=== PATIENT | female | born 1965 | race American Indian/Alaskan Native ===

== ENCOUNTER 2016-09-15 18:40 | Emergency (ER) | payer OTHER ==
[2016-09-15] MEDS ORDERED: MOTRIN PO ONE (23:01)
[2016-09-15] MEDS ORDERED: CLEOCIN IM ONE (23:01)
--- NOTE | 2016-09-15 23:01 | Emergency Department Report ---
- General Chief complaint: Skin/Abscess/Foreign Body Stated complaint: SPIDER BITE Time Seen by Provider: 09/15/16 22:19 Source: patient, family Mode of arrival: Ambulatory Limitations: No Limitations - History of Present Illness Initial comments: Patient here reports that she possible have a spider bite on her left leg area. She said the area is red and swollen. Denies any fever or chills. Denies any nausea or vomiting. She said that this happened yesterday. Pain is 8 out of 10. She reports that her tetanus shot is up-to-date. Patient reports that she put the Neosporin on site. MD complaint: insect bite/sting Onset/Timin -: days(s) Tetanus Up to Date: yes Location: LLE Severity: severe Severity scale (0 -10): 8 (left leg) Quality: other (throbbing) Consistency: constant Improves with: none Worsens with: palpation, movement Context: other (unknown) Associated symptoms: athralgias Treatments Prior to Arrival: OTC topical medication - Related Data Previous Rx's Medication Instructions Recorded Last Taken Type Ibuprofen [Motrin] 600 mg PO Q8H PRN #15 tablet 09/16/16 Unknown Rx Sulfamethoxazole/Trimethoprim 1 each PO BID #20 tablet 09/16/16 Unknown Rx [Bactrim DS TAB] Allergies Allergy/AdvReac Type Severity Reaction Status Date / Time No Known Allergies Allergy Unverified 09/15/16 18:59 Abscess Boil HPI - HPI Chief Complaint: Skin/Abscess/Foreign Body Stated Complaint: SPIDER BITE Time Seen by Provider: 09/15/16 22:19 Home Medications: Previous Rx's Medication Instructions Recorded Last Taken Type Ibuprofen [Motrin] 600 mg PO Q8H PRN #15 tablet 09/16/16 Unknown Rx Sulfamethoxazole/Trimethoprim 1 each PO BID #20 tablet 09/16/16 Unknown Rx [Bactrim DS TAB] Allergies/Adverse Reactions: Allergies Allergy/AdvReac Type Severity Reaction Status Date / Time No Known Allergies Allergy Unverified 09/15/16 18:59 ED Review of Systems ROS: Stated complaint: SPIDER BITE Other details as noted in HPI Comment: All other systems reviewed and negative Constitutional: denies: chills, fever ENT: denies: throat pain Respiratory: no symptoms reported Cardiovascular: denies: chest pain, palpitations, edema, syncope Gastrointestinal: denies: nausea, vomiting Musculoskeletal: arthralgia. denies: back pain Skin: other (redness, swelling left leg) Neurological: denies: headache, numbness, paresthesias, abnormal gait, vertigo ED Past Medical Hx - Past Medical History Previous Medical History?: Yes Hx Hypertension: Yes - Surgical History Past Surgical History?: No - Family History Family history: no significant - Social History Smoking Status: Never Smoker Substance Use Type: None - Medications Home Medications: Home Medications Medication Instructions Recorded Confirmed Last Taken Type Ibuprofen [Motrin] 600 mg PO Q8H PRN #15 tablet 09/16/16 Unknown Rx Sulfamethoxazole/Trimethoprim 1 each PO BID #20 tablet 09/16/16 Unknown Rx [Bactrim DS TAB] ED Physical Exam - General Limitations: No Limitations General appearance: alert, in no apparent distress - Head Head exam: Present: atraumatic, normocephalic, normal inspection - Eye Eye exam: Present: normal appearance, PERRL, EOMI. Absent: periorbital swelling , periorbital tenderness Pupils: Present: normal accommodation - ENT ENT exam: Present: normal exam, normal orophraynx, mucous membranes moist, TM's normal bilaterally, normal external ear exam - Neck Neck exam: Present: normal inspection, full ROM. Absent: tenderness, meningismus, lymphadenopathy - Respiratory Respiratory exam: Present: normal lung sounds bilaterally. Absent: respiratory distress, wheezes, rales, rhonchi, stridor, chest wall tenderness, accessory muscle use - Cardiovascular Cardiovascular Exam: Present: regular rate, normal rhythm, normal heart sounds - GI/Abdominal GI/Abdominal exam: Present: soft, normal bowel sounds. Absent: distended, tenderness, guarding, rebound, rigid - Extremities Exam Extremities exam: Present: normal inspection, full ROM, tenderness (CELLULITIC AREA LEFT LEG), normal capillary refill. Absent: pedal edema, joint swelling, calf tenderness - Neurological Exam Neurological exam: Present: alert, oriented X3, normal gait, reflexes normal. Absent: motor sensory deficit - Psychiatric Psychiatric exam: Present: normal affect, normal mood - Skin Skin exam: Present: erythema - Expanded Skin Exam Expanded Distribution of rash: LLE (left anterior proximal leg) Description of rash: Present: tenderness, erythematous (3 x 3 cm), swelling, other (noted point of entry to Center of erythema.). Absent: discharge, fluctuant, indurated ED Course Vital Signs 09/15/16 09/15/16 18:59 21:49 Temperature 98.3 F 98.2 F Pulse Rate 88 80 Respiratory 16 20 Rate Blood Pressure 160/111 Blood Pressure 157/102 [Right] O2 Sat by Pulse 99 100 Oximetry - Reevaluation(s) Reevaluation #1: 09/16/16 00:15 Patient given clindamycin 600 mg IM and emergency room without any adverse reaction. He is also given Motrin 800 mg for pain which relieved her pain. ED Medical Decision Making - Medical Decision Making ED course: She given clindamycin 600 mg IM and emergency room along with Motrin 800 mg by mouth. I discussed the patient that she has cellulitic area to her left leg which appears to be from insect bite. I discussed with patient diagnosis and treatment plan. Voice understanding. Patient says she has appointment with new primary care doctor in 2 days and she will follow-up with for cellulitis of left upper leg. Patient discharged home with prescription for Bactrim DS and Motrin. Critical care attestation.: If time is entered above; I have spent that time in minutes in the direct care of this critically ill patient, excluding procedure time. ED Disposition Clinical Impression: Cellulitis of leg, left Hypertension Qualifiers: Hypertension type: essential hypertension Qualified Code(s): I10 - Essential ( primary) hypertension Disposition: DISCHARGED TO HOME OR SELFCARE Is pt being admited?: No Does the pt Need Aspirin: No Condition: Stable Instructions: Cellulitis (ED), Hypertension (ED) Additional Instructions: Please keep affected area clean and dry remember to follow-up with her primary care physician in 2 days regarding cellulitis of left leg Take antibiotic as prescribed If you notice increased redness, develop fever and or drainage from site please return to emergency room Please keep a log of your blood pressure and take to primary care doctor visit for evaluation and treatment. Prescriptions: Ibuprofen [Motrin] 600 mg PO Q8H PRN #15 tablet PRN Reason: Pain Sulfamethoxazole/Trimethoprim [Bactrim DS TAB] 1 each PO BID #20 tablet Referrals: PRIMARY CARE [Primary Care Provider] - 09/17/16 Forms: Work/School Release Form(ED)
[2016-09-15 23:12] VITALS: BP 157/102
== END 2016-09-16 00:49 | disposition home or self-care (01) ==
LOC: ED 18:40
DX: L03.116 Cellulitis of left lower limb (principal); I10 Essential (primary) hypertension; W57.XXXA Bitten or stung by nonvenomous insect and other nonvenomous arthropods, initial encounter; Y93.89 Activity, other specified; Y99.9 Unspecified external cause status; Y92.89 Other specified places as the place of occurrence of the external cause
CPT/HCPCS: 96372

== ENCOUNTER 2016-10-31 13:23 | Outpatient (CLI) | payer OTHER ==
--- NOTE | 2016-10-31 15:44 | Mammography Report ---
BILATERAL MAMMOGRAM with CAD: HISTORY: Cancer screening. FINDINGS: There are scattered fibroglandular densities (approximately 25%-50% glandular). No mass, distortion, suspicious calcification, or skin change is seen. IMPRESSION: Negative mammogram. There is no mammographic evidence of malignancy. RECOMMENDATION: Follow-up per ACS guidelines. BI-RADS CATEGORY: 1 = Negative ACR BI-RADS MAMMOGRAPHIC CODES: 0 = Needs additional imaging evaluation; 1 = Negative; 2 = Benign; 3 = Probably benign; 4 = Suspicious; 5 = Malignant; 6 = Known biopsy-proven malignancy COMMENT: 1. Dense breast tissue, i.e., adenosis, fibrocystic changes, etc., may obscure an underlying neoplasm. 2. Approximately 10% of cancers are not detected with mammography. 3. A negative mammography report should not delay biopsy if a clinically suspicious mass is present. COMMENT: Patient follow-up letters are generated in [employer].
== END 2016-10-31 13:24 | disposition home or self-care (01) ==
LOC: SPVWC 13:23
PROVIDERS: ATTEND Family Medicine
DX: Z12.31 Encounter for screening mammogram for malignant neoplasm of breast (principal)
CPT/HCPCS: 77067; G0202

== ENCOUNTER 2017-07-11 08:32 | Inpatient (IN) | payer OTHER ==
[2017-07-11] MEDS ORDERED: HEPARIN IV ONE (08:38)
[2017-07-11] MEDS ORDERED: TRIDIL DRIP 50MG/250ML 50 MG/250 ML BOTTLE IV ONE (08:39)
[2017-07-11] MEDS ORDERED: HEPARIN/NS 5000 UNIT/500ML(CATH LAB) 1,000 ML IR ONE (08:43)
[2017-07-11] MEDS ORDERED: NITROGLYCERIN SYRINGE 3 ML ONE (08:44)
[2017-07-11] MEDS ORDERED: HEPARIN 10,000 UNITS/10 ML ONE ×2 (08:44→11:20)
[2017-07-11] MEDS ORDERED: XYLOCAINE 2% INFILTRATI ONE (08:44)
[2017-07-11] MEDS ORDERED: CALAN ONE (08:44)
--- NOTE | 2017-07-11 08:44 | Emergency Department Report ---
ED Chest Pain HPI - General Chief Complaint: Chest Pain Stated Complaint: CT Time Seen by Provider: 07/11/17 08:33 Source: patient, EMS Mode of arrival: Stretcher Limitations: No Limitations - History of Present Illness Initial Comments: 51-year-old female with a past medical history of recently diagnosed hypertension presenting the hospital complaints of chest pain. Patient states she had chest pressure last night that went away. Chest pressure woke her up this a.m. and patient called EMS at approximately 8 AM. Chest pressure was described as "an elephant sitting on her chest." Pads associated nausea, vomiting, and diaphoresis. Patient received nitroglycerin 1 and 324 mg aspirin prior to arrival and states she is now pain-free. Patient states she was discharged from [facility] yesterday when she was admitted for newly diagnosed hypertension for 4 days. She states she had a negative stress test during this admission. Patient denies tobacco use or previous cardiac history. EKG received by EMS reveals anteroseptal ST elevation CT with reciprocal depression. This was discussed with production supervisor off shift STEMI administrative law judge Dr. Mitchell and [facility] was activated prior to patient arrival Severity scale (0 -10): 5 - Related Data Previous Rx's Medication Instructions Recorded Last Taken Type Ibuprofen [Motrin] 600 mg PO Q8H PRN #15 tablet 09/16/16 Unknown Rx Sulfamethoxazole/Trimethoprim 1 each PO BID #20 tablet 09/16/16 Unknown Rx [Bactrim DS TAB] Allergies Allergy/AdvReac Type Severity Reaction Status Date / Time No Known Allergies Allergy Unverified 09/15/16 18:59 Heart Score - HEART Score History: Highly suspicious EKG: Significant ST-depression Age: 45-65 Risk factors: 1-2 risk factors Troponin: 1-3x normal limit HEART Score: 7 ED Review of Systems ROS: Stated complaint: CT Other details as noted in HPI Comment: All other systems reviewed and negative Other: Constitutional: No fevers chills or weight loss Eyes: No eye pain visual changes or discharge ENT: No ear pain or throat pain Neck: Denies pain Respiratory: Denies cough wheezing Cardiovascular: + chest GI: Denies abdominal pain : Denies dysuria Musculoskeletal: Denies back pain Skin: Denies rash, lesions, erythema Neurologic: Denies headache, numbness, weakness Psychiatric: Denies suicidal ideation, hallucinations ED Past Medical Hx - Past Medical History Previous Medical History?: Yes Hx Hypertension: Yes - Social History Smoking Status: Never Smoker Substance Use Type: None - Medications Home Medications: Home Medications Medication Instructions Recorded Confirmed Last Taken Type Ibuprofen [Motrin] 600 mg PO Q8H PRN #15 tablet 09/16/16 Unknown Rx Sulfamethoxazole/Trimethoprim 1 each PO BID #20 tablet 09/16/16 Unknown Rx [Bactrim DS TAB] ED Physical Exam - General Limitations: Other - Other Other exam information: General: No limitations, patient is alert in no acute distress Head exam: Atraumatic, normocephalic Eyes exam: Normal appearance ENT: Moist mucous membrane, normal oropharynx Neck exam: Normal inspection, full range of motion Respiratory exam: Clear to auscultation bilateral, no wheezes, rales, crackles Cardiovascular: Normal rate and rhythm Abdomen: Soft, nondistended, and nontender, with normal bowel sounds, no rebound, or guarding Extremity: Full range of motion normal inspection no deformity, no calf tenderness/edema Back: Normal Inspection, full range of motion, no tenderness Neurologic: Alert, oriented x3, cranial nerves intact, no motor or sensory deficit Psychiatric: normal affect, normal mood Skin: Warm, dry, intact ED Course Vital Signs 07/11/17 07/11/17 08:34 08:37 Respiratory 16 Rate Blood Pressure 143/101 O2 Sat by Pulse 100 Oximetry - Consultations Consultation #1: 07/11/17 08:[address] Mitchell got the on-call administrative law judge for field laboratory operator. He has agreed to take patient to the Rec[facility] based on ST elevation on EKG. Rec[facility] activated prior to patient arrival PETRONA score - Petrona Score Age > 65: (0) No Aspirin use within the Past 7 Days: (0) No 3 or more CAD Risk Factors: (0) No 2 or more Angina events in past 24 hrs: (1) Yes Known CAD with more than 50% Stenosis: (0) No Elevated Cardiac Markers: (1) Yes ST Deviation Greater than 0.5mm: (1) Yes PETRONA Score: 3 ED Medical Decision Making - Lab Data Result diagrams: 07/11/17 08:30 07/11/17 08:30 Lab Results 07/11/17 07/11/17 07/11/17 Range/Units 08:30 08:30 08:30 WBC 5.2 (4.5-11.0) K/mm3 RBC 5.09 H (3.65-5.03) M/mm3 Hgb 14.7 H (10.1-14.3) gm/dl Hct 43.9 H (30.3-42.9) % MCV 86 (79-97) fl MCH 29 (28-32) pg MCHC 33 (30-34) % RDW 14.8 (13.2-15.2) % Plt Count 273 (140-440) K/mm3 Lymph % (Auto) 36.5 H (13.4-35.0) % [place] % (Auto) 7.5 H (0.0-7.3) % Eos % (Auto) 1.1 (0.0-4.3) % Baso % (Auto) 0.8 (0.0-1.8) % Lymph # 1.9 (1.2-5.4) K/mm3 [place] # 0.4 (0.0-0.8) K/mm3 Eos # 0.1 (0.0-0.4) K/mm3 Baso # 0.0 (0.0-0.1) K/mm3 Seg Neutrophils % 54.1 (40.0-70.0) % Seg Neutrophils # 2.8 (1.8-7.7) K/mm3 PT 13.5 (12.2-14.9) Sec. INR 0.98 (0.87-1.13) APTT 24.1 L (24.2-36.6) Sec. Activated Clotting Time (74-137) Sodium 137 (137-145) mmol/L Potassium 4.2 (3.6-5.0) mmol/L Chloride 98.3 (98-107) mmol/L Carbon Dioxide 21 L (22-30) mmol/L Anion Gap 22 mmol/L BUN 8 (7-17) mg/dL Creatinine 0.8 (0.7-1.2) mg/dL Estimated GFR > 60 ml/min BUN/Creatinine Ratio 10 % Glucose 188 H (65-100) mg/dL Calcium 9.4 (8.4-10.2) mg/dL Total Creatine Kinase 222 H (30-135) units/L CK-MB (CK-2) 5.9 H (0.0-4.0) ng/mL CK-MB (CK-2) Rel Index 2.6 (0-4) Troponin T 0.069 H (0.00-0.029) ng/mL Triglycerides 63 (2-149) mg/dL Cholesterol 244 H (50-199) mg/dL LDL Cholesterol Direct 153 H (50-130) mg/dL HDL Cholesterol 79 H (40-59) mg/dL Cholesterol/HDL Ratio 3.08 % 07/11/17 07/11/17 07/11/17 Range/Units 09:33 09:47 11:22 WBC (4.5-11.0) K/mm3 RBC (3.65-5.03) M/mm3 Hgb (10.1-14.3) gm/dl Hct (30.3-42.9) % MCV (79-97) fl MCH (28-32) pg MCHC (30-34) % RDW (13.2-15.2) % Plt Count (140-440) K/mm3 Lymph % (Auto) (13.4-35.0) % [place] % (Auto) (0.0-7.3) % Eos % (Auto) (0.0-4.3) % Baso % (Auto) (0.0-1.8) % Lymph # (1.2-5.4) K/mm3 [place] # (0.0-0.8) K/mm3 Eos # (0.0-0.4) K/mm3 Baso # (0.0-0.1) K/mm3 Seg Neutrophils % (40.0-70.0) % Seg Neutrophils # (1.8-7.7) K/mm3 PT (12.2-14.9) Sec. INR (0.87-1.13) APTT (24.2-36.6) Sec. Activated Clotting Time 213 H 252 H (74-137) Sodium (137-145) mmol/L Potassium (3.6-5.0) mmol/L Chloride (98-107) mmol/L Carbon Dioxide (22-30) mmol/L Anion Gap mmol/L BUN (7-17) mg/dL Creatinine (0.7-1.2) mg/dL Estimated GFR ml/min BUN/Creatinine Ratio % Glucose (65-100) mg/dL Calcium (8.4-10.2) mg/dL Total Creatine Kinase 219 H (30-135) units/L CK-MB (CK-2) 8.0 H (0.0-4.0) ng/mL CK-MB (CK-2) Rel Index 3.6 (0-4) Troponin T 0.167 H* D (0.00-0.029) ng/mL Triglycerides (2-149) mg/dL Cholesterol (50-199) mg/dL LDL Cholesterol Direct (50-130) mg/dL HDL Cholesterol (40-59) mg/dL Cholesterol/HDL Ratio % - EKG Data -: EKG Interpreted by Me EKG shows normal: sinus rhythm, ST-T waves (anterior septal stemi) - EKG Data When compared to previous EKG there are: previous EKG unavailable - Medical Decision Making EKG reveals ST elevation. Patient pain-free in the ED after receiving nitroglycerin and aspirin in route Nitroglycerin drip, heparin, heparin bolus ordered in the ED Patient transferred emergently to the [facility] Hospitalist service informed - Differential Diagnosis dissection, STEMI, atypical chest pain, coronary vasospasm Critical Care Time: Yes Critical care time in (mins) excluding proc time.: 35 Critical care attestation.: If time is entered above; I have spent that time in minutes in the direct care of this critically ill patient, excluding procedure time. ED Disposition Clinical Impression: STEMI (ST elevation myocardial infarction) Disposition: -09 OP ADMIT IP TO THIS HOSP Is pt being admited?: Yes Condition: Stable Time of Disposition: 08:40 (to go to field laboratory operator, gretaitaist/ashley informed)
[2017-07-11] MEDS ORDERED: VERSED ONE (08:45)
[2017-07-11] MEDS ORDERED: SUBLIMAZE ONE (08:45)
[2017-07-11] MEDS ORDERED: NACL 0.9% 1000 ML 1,000 ML ONE (08:45)
[2017-07-11 08:47] LABS: Hematocrit 43.9 % (30.3-42.9); Hemoglobin 14.7 gm/dl (10.1-14.3); Mean Corpuscular HGB Conc 33 % (30-34); Mean Corpuscular Hemoglobin 29 pg (28-32); Mean Corpuscular Volume 86 fl (79-97); Platelet Count 273 K/mm3 (140-440); Red Blood Count 5.09 M/mm3 (3.65-5.03); Red Cell Distribution Width 14.8 % (13.2-15.2); White Blood Count 5.2 K/mm3 (4.5-11.0)
[2017-07-11 08:49] LABS: Basophils % (Auto) 0.8 % (0.0-1.8); Eosinophils % (Auto) 1.1 % (0.0-4.3)
--- NOTE | 2017-07-11 08:50 | Progress Note ---
Assessment and Plan Assessment: NSTEMI type I CAD Abnormal EKG HTN Obesity Plan: pt s/p [facility] with IVUS which revealed nonobstructive proximal LAD disease, normal LV function. Dictated cath report to follow. Tx pt to ICU. Cont heparin and nitro gtts overnight. Initiate ASA 325, plavix, lopressor, lisinopril, lipitor. Obtain echo. Repeat EKG in AM. Trend Emilia. Assessment and plan reviewed with pt at bedside. The patient has been seen in conjunction with Dr. Mitchell who agrees with the assessment and plan of care. Subjective Date of service: 07/11/17 Principal diagnosis: chest pain Interval history: Pt is a 51 YO female with a past medical history significant for HTN. She is previously unknown to our practice. She presented with c/o chest pain which began at 1AM this morning. The pain awoke her from sleeping. She describes the chest pain as a nonexertional, constant, midsternal pressure which radiates down her right arm. The pain was associated with nausea, vomiting and diaphoresis. She called 9-1-1 at the onset of her chest pain at 1AM and by the time EMS arrived, she states that the pain had resolved. She reports that she did have her VS checked and an EKG done per EMS around 1AM and that there were no significant findings per EMS. EMS then left and pt went back to sleep. Around 7:45AM this morning, the pt was sleeping and was once again awakened by chest pain. The pain was the same pain she experienced at 1AM and was again associated with n/v and diaphoresis. Pt called EMS again at that time and was transported to [facility] ED for further eval/management. Patient received nitroglycerin 1 and 324 mg aspirin en route per EMS. On arrival to ED, pt reports chest pain has currently resolved. Admission EKG demonstrates ST elevations in anteroseptal leads and ST depressions in inferior leads. Code STEMI activated. Pt taken to screedman/laborer for emergent coronary angiography. Pt denies any prior history of cardiac issues, including AMI, CAD or heart failure. Of note, pt was recently discharged from [facility] yesterday following evaluation of chest pain. She underwent lexiscan MPI stress test on 07/08/2017 which was negative for significant ischemia or infarction, normal LV function. She underwent echo on 07/08/2017 which showed EF >55%, normal LV diastolic function , mild MR< mild TR, trace TX. EKG performed 07/08/2016 showed NSR with no acute ischemic changes. Objective Last Vital Signs Temp Pulse Resp 16 07/11/17 08:37 BP 143/101 07/11/17 08:34 Pulse Ox 100 07/11/17 08:37 - Physical Examination General: Other (anxious) HEENT: Positive: PERRL, Normocephaly, Mucus Membranes Moist Neck: Positive: neck supple, trachea midline Cardiac: Positive: Reg Rate and Rhythm, S1/S2 Lungs: Positive: clear to auscultation Neuro: Positive: Grossly Intact, Cranial Nerve 2-12 Intact Abdomen: Positive: Unremarkable, Soft, Active Bowel Sounds. Negative: Tender Skin: Positive: Clear. Negative: Rash, Wound Musculoskeletal: No Fluid Collection, No Pain, Normal Range of Motion Extremities: Absent: edema - Labs and Meds CBC 07/11/17 Range/Units 08:30 WBC 5.2 (4.5-11.0) K/mm3 RBC 5.09 H (3.65-5.03) M/mm3 Hgb 14.7 H (10.1-14.3) gm/dl Hct 43.9 H (30.3-42.9) % Plt Count 273 (140-440) K/mm3 Lymph # Soil Scientist Evans # Soil Scientist Eos # Soil Scientist Baso # Soil Scientist - Imaging and Cardiology EKG: report reviewed, image reviewed Echo: pending Cardiac cath: pending - Telemetry EKG Rhythm: Sinus Rhythm - EKG Sinus rhythms and dysrhythmias: sinus rhythm Repolarization changes or abnormalities: ST or T wave suggestive of ischemia Myocardial infarction: septal AL (acute or recen, anterior AL (acute or rec
[2017-07-11 08:51] LABS: INR 0.98 (0.87-1.13)
[2017-07-11 08:52] LABS: Partial Thromboplastin Time 24.1 Sec. (24.2-36.6)
[2017-07-11] MEDS ORDERED: ALUM-MAG HYDROX-SIMETH 200-200-20MG/5ML PO PRN (08:56)
[2017-07-11 08:59] LABS: Creatine Kinase MB 5.9 ng/mL (0.0-4.0)
[2017-07-11 09:00] LABS: Anion Gap 22 mmol/L; BUN/Creatinine Ratio 10; Blood Urea Nitrogen 8 mg/dL (7-17); Calcium 9.4 mg/dL (8.4-10.2); Carbon Dioxide 21 mmol/L (22-30); Chloride 98.3 mmol/L (98-107); Creatine Kinase 222 units/L (30-135); Glucose 188 mg/dL (65-100); Potassium 4.2 mmol/L (3.6-5.0); Sodium 137 mmol/L (137-145)
[2017-07-11] MEDS ORDERED: HEPARIN 10,000 UNITS/10 ML IV NR (09:00)
[2017-07-11] MEDS ORDERED: NACL 0.9% 1000 ML 1,000 ML IV SCH (09:00)
--- NOTE | 2017-07-11 09:10 | History and Physical Report ---
<CHRISTAL VERONICA - Last Filed: 07/11/17 13:13> History of Present Illness Date of examination: 07/11/17 Date of admission: 07/11/2017 Chief complaint: Chest pain History of present illness: Patient is a 51-year-old male with a past medical history of hypertension who present to the Emergency Department for chest pain. She states that the pain began this morning around 01:00AM.The pain awoke her from sleeping; constant midsternal chest pain. Patient described the pain as, sharp, pressure and squeezing in her chest; hat radiates to the right arm. The sharp pain lasted around 1 minute. She called 911; by the time EMS arrived her pain was resolved. She went back to sleep. Also around 7:45 AM she had the same chest pain;the patient was sleeping and awakened by chest pain. Patient called EMS again at that There is no aggravating or reliving factors. The painful episodes did not increase in intensity or severity during this time. Patient rated his pain level 9/10. He denies nausea, vomiting during these episodes of pain. She experienced shortness of breath, nausea, vomiting diaphoresis during these episodes of pain. Patient found to have Elevated troponin, EGK was done and showed ST elevations in anteroseptal leads and ST depressions in inferior leads. Code STEMI was activated and patient has taken to rn cardiac cath. She was just discharge from [place] 2 days ago; was admitted for chest pain and had negative stress test Past History Past Medical History: hypertension Past Surgical History: No surgical history Social history: denies: smoking, alcohol abuse Family history: hypertension Medications and Allergies Allergies Allergy/AdvReac Type Severity Reaction Status Date / Time No Known Allergies Allergy Unverified 09/15/16 18:59 Home Medications Medication Instructions Recorded Confirmed Last Taken Type Ibuprofen [Motrin] 600 mg PO Q8H PRN #15 tablet 09/16/16 Unknown Rx Sulfamethoxazole/Trimethoprim 1 each PO BID #20 tablet 09/16/16 Unknown Rx [Bactrim DS TAB] Active Meds: Active Medications Al Hydrox/Mg Hydrox/Simethicone (Alum-Mag Hydrox-Simeth 226-007-16mj/5ml) 30 ml PO Q4H PRN PRN Reason: Indigestion Bisacodyl (Dulcolax) 10 mg CO QDAY PRN PRN Reason: constipation unrelieved by MOM Heparin Sodium (Porcine) (Heparin 10,000 Units/10 Ml) 4,000 unit IV ONCE.ED NR Stop: 07/11/17 11:00 Heparin Sodium/Sodium Chloride (Heparin/ 0.45% Nacl-25,000 Unit/500 Ml) 25,000 unit in 500 mls @ 20 mls/hr IV TITRATE MANUEL; 1,000 UNITS/HR PRN Reason: Protocol Nitroglycerin/Dextrose (Tridil Drip 50mg/250ml) 50 mg in 250 mls @ 3 mls/hr IV TITR ONE; 10 MCG/MIN PRN Reason: Protocol Stop: 07/14/17 19:58 Sodium Chloride (Nacl 0.9% 1000 Ml) 1,000 mls @ 100 mls/hr IV DIRECT MANUEL Morphine Sulfate (Morphine) 2 mg IV Q4H PRN PRN Reason: Pain, Moderate (4-6) Review of Systems Constitutional: sweats, no weight gain, no fever, no chills Ears, nose, mouth and throat: no ear discharge, no tinnitis, no decreased hearing, no nose pain Breasts: no swelling, no mass Cardiovascular: chest pain, lightheadedness, shortness of breath, no palpitations, no syncope Gastrointestinal: nausea, vomiting Genitourinary Female: no urinary frequency, no urgency, no stress incontinence Menstruation: no period normal, no period heavy Rectal: no incontinence, no bleeding Musculoskeletal: no arm numbness/tingling, no low back pain, no shooting leg pain Integumentary: no sores, no wounds, no jaundice Neurological: no numbness, no tingling, no syncope Psychiatric: no sleep disturbances, no hypersomnia, no change in appetite, no suicidal ideation Endocrine: no cold intolerance, no heat intolerance, no polyphagia Hematologic/Lymphatic: no easy bruising, no easy bleeding Allergic/Immunologic: no urticaria, no allergic rhinitis Exam - Constitutional Vitals: Temp Pulse Resp BP Pulse Ox 16 143/101 100 07/11/17 08:37 07/11/17 08:34 07/11/17 08:37 General appearance: Present: no acute distress - EENT Eyes: Present: PERRL ENT: hearing intact - Neck Neck: Present: supple - Respiratory Respiratory effort: normal Respiratory: bilateral: CTA - Cardiovascular Rhythm: regular Heart Sounds: Present: S1 & S2 - Abdominal General gastrointestinal: Present: soft, non-tender Female genitourinary: Present: deferred - Rectal Rectal Exam: deferred - Integumentary Integumentary: Present: clear, warm, dry - Musculoskeletal Musculoskeletal: strength equal bilaterally - Psychiatric Psychiatric: appropriate mood/affect - Neurologic Neurologic: moves all extremities - Allied Health Allied health notes reviewed: nursing Results - Labs CBC & Chem 7: 07/11/17 08:30 07/11/17 08:30 Labs: Laboratory Last Values WBC 5.2 K/mm3 (4.5-11.0) 07/11/17 08:30 RBC 5.09 M/mm3 (3.65-5.03) H 07/11/17 08:30 Hgb 14.7 gm/dl (10.1-14.3) H 07/11/17 08:30 Hct 43.9 % (30.3-42.9) H 07/11/17 08:30 MCV 86 fl (79-97) 07/11/17 08:30 MCH 29 pg (28-32) 07/11/17 08:30 MCHC 33 % (30-34) 07/11/17 08:30 RDW 14.8 % (13.2-15.2) 07/11/17 08:30 Plt Count 273 K/mm3 (140-440) 07/11/17 08:30 Lymph % (Auto) 36.5 % (13.4-35.0) H 07/11/17 08:30 Mcdonald % (Auto) 7.5 % (0.0-7.3) H 07/11/17 08:30 Eos % (Auto) 1.1 % (0.0-4.3) 07/11/17 08:30 Baso % (Auto) 0.8 % (0.0-1.8) 07/11/17 08:30 Lymph # 1.9 K/mm3 (1.2-5.4) 07/11/17 08:30 Mcdonald # 0.4 K/mm3 (0.0-0.8) 07/11/17 08:30 Eos # 0.1 K/mm3 (0.0-0.4) 07/11/17 08:30 Baso # 0.0 K/mm3 (0.0-0.1) 07/11/17 08:30 Seg Neutrophils % 54.1 % (40.0-70.0) 07/11/17 08:30 Seg Neutrophils # 2.8 K/mm3 (1.8-7.7) 07/11/17 08:30 PT 13.5 Sec. (12.2-14.9) 07/11/17 08:30 INR 0.98 (0.87-1.13) 07/11/17 08:30 APTT 24.1 Sec. (24.2-36.6) L 07/11/17 08:30 Sodium 137 mmol/L (137-145) 07/11/17 08:30 Potassium 4.2 mmol/L (3.6-5.0) 07/11/17 08:30 Chloride 98.3 mmol/L (98-107) 07/11/17 08:30 Carbon Dioxide 21 mmol/L (22-30) L 07/11/17 08:30 Anion Gap 22 mmol/L 07/11/17 08:30 BUN 8 mg/dL (7-17) 07/11/17 08:30 Creatinine 0.8 mg/dL (0.7-1.2) 07/11/17 08:30 Estimated GFR > 60 ml/min 07/11/17 08:30 BUN/Creatinine Ratio 10 % 07/11/17 08:30 Glucose 188 mg/dL (65-100) H 07/11/17 08:30 Calcium 9.4 mg/dL (8.4-10.2) 07/11/17 08:30 Total Creatine Kinase 222 units/L (30-135) H 07/11/17 08:30 CK-MB (CK-2) 5.9 ng/mL (0.0-4.0) H 07/11/17 08:30 CK-MB (CK-2) Rel Index 2.6 (0-4) 07/11/17 08:30 Troponin T 0.069 ng/mL (0.00-0.029) H 07/11/17 08:30 Assessment and Plan Assessment and plan: NSTEMI type I We will admit to ICU EKG done revealed demonstrates ST elevations in anteroseptal leads and ST depressions in inferior leads. Code STEMI was activated and patient has done cath, s/p LHC with IVUS which revealed nonobstructive proximal LAD disease, normal LV function Continue on heparin and nitro drip overnight Elevated troponin, Continue on aspirin plavix, lopressor, lisinopril, lipitor. Morphine ordered for pain Patient has recent normal stress test from We will obtain echocardiogram Stress Hypertensive urgency Continue home antihypertensive medications Closely monitor blood pressure Dehydration IV fluid hydration Hyperlipidemia Continue on Lipitor DVT/Prophylaxis On heparin drip Advance Directives: Yes VTE prophylaxis?: Chemical Contraindication Mechanical VTE Prophylaxis: Treatment Not Indicated Plan of care discussed with patient/family: Yes <WANG HERNANDEZ R - Last Filed: 07/11/17 15:29> Medications and Allergies Active Meds: Active Medications Al Hydrox/Mg Hydrox/Simethicone (Alum-Mag Hydrox-Simeth 019-676-35it/5ml) 30 ml PO Q4H PRN PRN Reason: Indigestion Aspirin (Aspirin) 325 mg PO QDAY MANUEL Atorvastatin Calcium (Lipitor) 80 mg PO QHS MANUEL Bisacodyl (Dulcolax) 10 mg CO QDAY PRN PRN Reason: constipation unrelieved by MOM Clopidogrel Bisulfate (Plavix) 75 mg PO DAILY [facility] Heparin Sodium/Sodium Chloride (Heparin/ 0.45% Nacl-25,000 Unit/500 Ml) 25,000 unit in 500 mls @ 20 mls/hr IV TITRATE MANUEL; 1,000 UNITS/HR PRN Reason: Protocol Nitroglycerin/Dextrose (Tridil Drip 50mg/250ml) 50 mg in 250 mls @ 3 mls/hr IV TITR ONE; 10 MCG/MIN PRN Reason: Protocol Stop: 07/14/17 19:58 Last Admin: 07/11/17 09:20 Dose: 3 mls Sodium Chloride (Nacl 0.9% 1000 Ml) 1,000 mls @ 100 mls/hr IV DIRECT MANUEL Lisinopril (Zestril) 40 mg PO DAILY MANU[facility] Metoprolol Tartrate (Lopressor) 50 mg PO BID MANUEL Morphine Sulfate (Morphine) 2 mg IV Q4H PRN PRN Reason: Pain, Moderate (4-6) Exam - Constitutional Vitals: Temp Pulse Resp BP Pulse Ox 97.9 F 87 20 122/100 99 07/11/17 10:13 07/11/17 15:00 07/11/17 15:00 07/11/17 15:00 07/11/17 15:00 Results - Labs CBC & Chem 7: 07/11/17 08:30 07/11/17 08:30 Labs: Laboratory Last Values WBC 5.2 K/mm3 (4.5-11.0) 07/11/17 08:30 RBC 5.09 M/mm3 (3.65-5.03) H 07/11/17 08:30 Hgb 14.7 gm/dl (10.1-14.3) H 07/11/17 08:30 Hct 43.9 % (30.3-42.9) H 07/11/17 08:30 MCV 86 fl (79-97) 07/11/17 08:30 MCH 29 pg (28-32) 07/11/17 08:30 MCHC 33 % (30-34) 07/11/17 08:30 RDW 14.8 % (13.2-15.2) 07/11/17 08:30 Plt Count 273 K/mm3 (140-440) 07/11/17 08:30 Lymph % (Auto) 36.5 % (13.4-35.0) H 07/11/17 08:30 Mcdonald % (Auto) 7.5 % (0.0-7.3) H 07/11/17 08:30 Eos % (Auto) 1.1 % (0.0-4.3) 07/11/17 08:30 Baso % (Auto) 0.8 % (0.0-1.8) 07/11/17 08:30 Lymph # 1.9 K/mm3 (1.2-5.4) 07/11/17 08:30 Mcdonald # 0.4 K/mm3 (0.0-0.8) 07/11/17 08:30 Eos # 0.1 K/mm3 (0.0-0.4) 07/11/17 08:30 Baso # 0.0 K/mm3 (0.0-0.1) 07/11/17 08:30 Seg Neutrophils % 54.1 % (40.0-70.0) 07/11/17 08:30 Seg Neutrophils # 2.8 K/mm3 (1.8-7.7) 07/11/17 08:30 PT 13.5 Sec. (12.2-14.9) 07/11/17 08:30 INR 0.98 (0.87-1.13) 07/11/17 08:30 APTT 24.1 Sec. (24.2-36.6) L 07/11/17 08:30 Activated Clotting Time 252 (74-137) H 07/11/17 09:47 Sodium 137 mmol/L (137-145) 07/11/17 08:30 Potassium 4.2 mmol/L (3.6-5.0) 07/11/17 08:30 Chloride 98.3 mmol/L (98-107) 07/11/17 08:30 Carbon Dioxide 21 mmol/L (22-30) L 07/11/17 08:30 Anion Gap 22 mmol/L 07/11/17 08:30 BUN 8 mg/dL (7-17) 07/11/17 08:30 Creatinine 0.8 mg/dL (0.7-1.2) 07/11/17 08:30 Estimated GFR > 60 ml/min 07/11/17 08:30 BUN/Creatinine Ratio 10 % 07/11/17 08:30 Glucose 188 mg/dL (65-100) H 07/11/17 08:30 Calcium 9.4 mg/dL (8.4-10.2) 07/11/17 08:30 Total Creatine Kinase 219 units/L (30-135) H 07/11/17 11:22 CK-MB (CK-2) 8.0 ng/mL (0.0-4.0) H 07/11/17 11:22 CK-MB (CK-2) Rel Index 3.6 (0-4) 07/11/17 11:22 Troponin T 0.167 ng/mL (0.00-0.029) H* D 07/11/17 11:22 Triglycerides 63 mg/dL (2-149) 07/11/17 08:30 Cholesterol 244 mg/dL (50-199) H 07/11/17 08:30 LDL Cholesterol Direct 153 mg/dL (50-130) H 07/11/17 08:30 HDL Cholesterol 79 mg/dL (40-59) H 07/11/17 08:30 Cholesterol/HDL Ratio 3.08 % 07/11/17 08:30 Assessment and Plan Assessment and plan: I saw and evaluated the patient. I agree with the findings and the plan of care as documented in the Nurse Practitioner's~note. The high probability of a clinically significant, sudden or life threatening deterioration of the [CVS] system(s) required my full and direct attention, intervention and personal management. The aggregate critical care time was [32] minutes. This time is in addition to time spent performing reported procedures but includes the following: [x] Data Review and interpretation [x] Patient assessment and monitoring of vital signs [x] Documentation [x] Medication orders and management
[2017-07-11 09:11] LABS: Cholesterol 244 mg/dL (50-199); HDL Cholesterol 79 mg/dL (40-59); LDL Cholesterol,Direct 153 mg/dL (50-130); Triglycerides 63 mg/dL (2-149)
[2017-07-11] MEDS ORDERED: TRIDIL DRIP 50MG/250ML 50 MG/250 ML BOTTLE ONE (09:15)
[2017-07-11] MEDS ORDERED: DULCOLAX PR PRN (10:00)
[2017-07-11] MEDS ORDERED: LOVENOX SUB-Q SCH ×2 (10:00)
--- NOTE | 2017-07-11 10:21 | Consultation ---
History of Present Illness Consult date: 07/11/17 Requesting physician: AGUILAR FELIX Consult reason: chest pain, other (poss STEMI) History of present illness: Pt is a 51 YO female with a past medical history significant for recently diagnosed HTN. She is previously unknown to our practice. She presented with c/ o chest pain which began at 1AM this morning. The pain awoke her from sleeping. She describes the chest pain as a nonexertional, constant, midsternal pressure which radiates down her right arm. The pain was associated with nausea, vomiting and diaphoresis. She called 9--1 at the onset of her chest pain at 1AM and by the time EMS arrived, she states that the pain had resolved. She reports that she did have her VS checked and an EKG done per EMS around 1AM and that there were no significant findings per EMS. EMS then left and pt went back to sleep. Around 7:45AM this morning, the pt was sleeping and was once again awakened by chest pain. The pain was the same pain she experienced at 1AM and was again associated with n/v and diaphoresis. Pt called EMS again at that time and was transported to [facility] ED for further eval/management. Patient received nitroglycerin 1 and 324 mg aspirin en route per EMS. On arrival to ED, pt reports chest pain has currently resolved. Admission EKG demonstrates ST elevations in anteroseptal leads and ST depressions in inferior leads. Code STEMI activated. Pt taken to rn labor delivery for emergent coronary angiography. Pt denies any prior history of cardiac issues, including AMI, CAD or heart failure. Of note, pt was recently discharged from [facility] yesterday following evaluation of chest pain. She underwent lexiscan MPI stress test on 07/08/2017 which was negative for significant ischemia or infarction, normal LV function. She underwent echo on 07/08/2017 which showed EF >55%, normal LV diastolic function , mild MR< mild TR, trace OH. EKG performed 07/08/2016 showed NSR with no acute ischemic changes. Past History Past Medical History: hypertension Social history: denies: smoking, alcohol abuse, prescription drug abuse Medications and Allergies Allergies Allergy/AdvReac Type Severity Reaction Status Date / Time No Known Allergies Allergy Unverified 09/15/16 18:59 Home Medications Medication Instructions Recorded Confirmed Last Taken Type Ibuprofen [Motrin] 600 mg PO Q8H PRN #15 tablet 09/16/16 Unknown Rx Sulfamethoxazole/Trimethoprim 1 each PO BID #20 tablet 09/16/16 Unknown Rx [Bactrim DS TAB] Active Meds: Active Medications Al Hydrox/Mg Hydrox/Simethicone (Alum-Mag Hydrox-Simeth 216-202-91at/5ml) 30 ml PO Q4H PRN PRN Reason: Indigestion Aspirin (Aspirin) 325 mg PO QDAY [facility] Atorvastatin Calcium (Lipitor) 80 mg PO QHS MANUEL Bisacodyl (Dulcolax) 10 mg [place] QDAY PRN PRN Reason: constipation unrelieved by MOM Clopidogrel Bisulfate (Plavix) 75 mg PO DAILY [facility] Heparin Sodium (Porcine) (Heparin 10,000 Units/10 Ml) 4,000 unit IV ONCE.ED NR Stop: 07/11/17 11:00 Heparin Sodium/Sodium Chloride (Heparin/ 0.45% Nacl-25,000 Unit/500 Ml) 25,000 unit in 500 mls @ 20 mls/hr IV TITRATE MANUEL; 1,000 UNITS/HR PRN Reason: Protocol Nitroglycerin/Dextrose (Tridil Drip 50mg/250ml) 50 mg in 250 mls @ 3 mls/hr IV TITR ONE; 10 MCG/MIN PRN Reason: Protocol Stop: 07/14/17 19:58 Last Admin: 07/11/17 09:20 Dose: 3 mls Sodium Chloride (Nacl 0.9% 1000 Ml) 1,000 mls @ 100 mls/hr IV DIRECT MANUEL Lisinopril (Zestril) 40 mg PO DAILY [facility] Metoprolol Tartrate (Lopressor) 50 mg PO BID [facility] Morphine Sulfate (Morphine) 2 mg IV Q4H PRN PRN Reason: Pain, Moderate (4-6) Review of Systems Constitutional: sweats, no weight loss, no weight gain, no fever, no chills Ears, nose, mouth and throat: no ear pain, no nose pain, no sinus pressure, no sinus pain Cardiovascular: chest pain, high blood pressure, no orthopnea, no palpitations, no lightheadedness, no shortness of breath, no dyspnea on exertion Respiratory: shortness of breath, dyspnea on exertion, no cough, no congestion, no wheezing, no pain on inspiration Gastrointestinal: nausea, vomiting, no abdominal pain, no diarrhea, no constipation, no change in bowel habits Genitourinary Female: no pelvic pain, no flank pain, no dysuria, no urinary frequency, no urgency Musculoskeletal: no neck stiffness, no neck pain, no shooting arm pain, no arm numbness/tingling, no low back pain, no shooting leg pain, no leg numbness/ tingling, no redness of joints Integumentary: no rash, no pruritis, no redness, no sores, no wounds Neurological: no head injury, no paralysis, no weakness, no parathesias, no numbness, no tingling Psychiatric: no anxiety Endocrine: no cold intolerance, no heat intolerance Hematologic/Lymphatic: no easy bruising, no easy bleeding, no lymphadenopathy Allergic/Immunologic: no urticaria, no wheezing, no persistent infections Physical Examination Vital Signs BP 143/101 07/11/17 08:34 General appearance: other (anxious) HEENT: Positive: PERRL, Normocephaly, Mucus Membranes Moist Cardiac: Positive: Reg Rate and Rhythm, S1/S2 Lungs: Positive: clear to auscultation Neuro: Positive: Grossly Intact, Cranial Nerve 2-12 Intact Abdomen: Positive: Unremarkable, Soft, Active Bowel Sounds. Negative: Tender Skin: Positive: Clear. Negative: Rash, Wound Musculoskeletal: No Fluid Collection, No Pain, Normal Range of Motion Extremities: Absent: edema Results 07/11/17 08:30 07/11/17 08:30 Cardiac Enzymes 07/11/17 Range/Units 08:30 CK-MB (CK-2) 5.9 H (0.0-4.0) ng/mL Coagulation 07/11/17 Range/Units 08:30 PT 13.5 (12.2-14.9) Sec. INR 0.98 (0.87-1.13) APTT 24.1 L (24.2-36.6) Sec. Lipids 07/11/17 Range/Units 08:30 Triglycerides 63 (2-149) mg/dL Cholesterol 244 H (50-199) mg/dL HDL Cholesterol 79 H (40-59) mg/dL Cholesterol/HDL Ratio 3.08 % CBC 07/11/17 Range/Units 08:30 WBC 5.2 (4.5-11.0) K/mm3 RBC 5.09 H (3.65-5.03) M/mm3 Hgb 14.7 H (10.1-14.3) gm/dl Hct 43.9 H (30.3-42.9) % Plt Count 273 (140-440) K/mm3 Lymph # 1.9 (1.2-5.4) K/mm3 [place] # 0.4 (0.0-0.8) K/mm3 Eos # 0.1 (0.0-0.4) K/mm3 Baso # 0.0 (0.0-0.1) K/mm3 Comprehensive Metabolic Panel 07/11/17 Range/Units 08:30 Sodium 137 (137-145) mmol/L Potassium 4.2 (3.6-5.0) mmol/L Chloride 98.3 (98-107) mmol/L Carbon Dioxide 21 L (22-30) mmol/L BUN 8 (7-17) mg/dL Creatinine 0.8 (0.7-1.2) mg/dL Glucose 188 H (65-100) mg/dL Calcium 9.4 (8.4-10.2) mg/dL - Imaging and Cardiology Echo: pending Cardiac cath: pending EKG: report reviewed, image reviewed EKG interpretations - Telemetry EKG Rhythm: Sinus Rhythm - EKG Sinus rhythms and dysrhythmias: sinus rhythm Repolarization changes or abnormalities: ST or T wave suggestive of ischemia Myocardial infarction: septal WA (acute or recen, anterior WA (acute or rec Assessment and Plan Assessment: NSTEMI type I CAD Abnormal EKG HTN Obesity Plan: pt s/p LHC with IVUS which revealed nonobstructive proximal LAD disease, normal LV function. Dictated cath report to follow. Tx pt to ICU. Cont heparin and nitro gtts overnight. Initiate ASA 325, plavix, lopressor, lisinopril, lipitor. Obtain echo. Repeat EKG in AM. Trend Emilia. Assessment and plan reviewed with pt at bedside. The patient has been seen in conjunction with Dr. Mitchell who agrees with the assessment and plan of care.
--- NOTE | 2017-07-11 11:19 | Cardiac Catherization Report ---
CARDIAC CATHETERIZATION AND INTRAVASCULAR ULTRASOUND REASON FOR PROCEDURE: Non-STEMI. 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, apparently had nuclear imaging performed, which was normal, was sent home. Last night, she started having anterior chest pain. This pain was intermittent. Hence, this morning, she called the paramedics who did an EKG, which showed ST elevation up to 2-3 mm in the leads V1 and V2 along with mild ST depressions in the inferior leads consistent with acute injury. Subsequently, a repeat EKG was performed which showed improvement in the ST elevations with T-wave changes in the anterior leads consistent with ischemia. Because of this intermittent EKG changes and chest pain, the patient was brought to the catheterization laboratory on an urgent basis for further evaluation. Initial cardiac enzymes and troponin were mildly elevated. The patient denies any previous cardiac history of hypertension or diabetes or significant medical illnesses up to this week. DESCRIPTION OF PROCEDURE: The patient was brought to the catheterization laboratory on an urgent basis. She was prepared in a standard fashion, sterile drapes were applied. Right wrist area was thoroughly cleansed with alcohol ____ chlorhexidine solution. Sterile drapes applied and subsequently, right radial artery puncture was made using 21-gauge arterial puncture needle. A 5-Nigerian Slender sheath was introduced. Using 5-Nigerian multipurpose catheter, angiograms of the right coronary artery were obtained and left ventriculogram was performed in [place] projection using hand injection. Subsequently, using 5-Nigerian TIG catheter angiograms of the left coronary artery were obtained. This showed evidence of haziness at the ostium of the LAD and proximal LAD. For further evaluation of the lesion, intravascular ultrasound procedure was performed. The angiographic findings are as follows: 1. Aortic pressure 134/85, left ventricular pressure 136/20, no gradient across the aortic valve. Estimated ejection fraction 60%. 2. Left ventriculogram done in [place] projection shows normal sized left ventricle with normal contractility. Left ventricular size is normal. End-diastolic and systolic volumes are normal. Mitral regurgitation could not be evaluated because of limited amount of dye injected. Right coronary artery dominant vessel arises normally from right coronary cusp, angiographically smooth and normal. 3. Left coronary artery arises normally from left coronary cusp, left main without significant disease. There is some ring-like lesion at the ostium of the LAD with haziness in the proximal LAD, also mild 20-30% ostial circumflex lesion noted. Except for this proximal LAD haziness and ring like lesion, rest of the LAD which curves around the apex and its branches without significant disease. Circumflex artery showed mild ostial lesion 20-30%, but rest of the marginal branch without significant disease. Interventional procedure, namely intervention ultrasound of the proximal LAD and left main. The patient was given extra dose of IV heparin to keep the ACT more than 250 seconds. Diagnostic catheter was exchanged to EBU 3.5 guiding catheter and engaged the left coronary artery. [place] intravascular ultrasound was set up in a standard fashion. A 0.014 inch [place] XT guidewire was advanced into mid LAD. Subsequently, intravascular ultrasound of the mid, proximal LAD and left main were obtained. This showed evidence of proximal LAD stenosis eccentric and at the maximal stenosis her minimal diameter was 2.0 mm, maximal diameter was 2.8 mm with area of 4.7 sq mm. Proximal LAD has moderate diffuse disease. Left main is normal without significant disease. Ostial LAD has also no significant disease noted on the intervascular ultrasound. Final impression, normal sized left ventricle with normal contractility and haziness and ring-like ostial LAD lesion with intraocular ultrasound is showing moderate to severe disease with area of 4.7 sq mm. This lesion is eccentric. Otherwise, rest of the LAD including left main and RCA are angiographically smooth and normal. FINAL IMPRESSION: Non-STEMI secondary to thrombus, spasm, with underlying moderately severe proximal LAD disease. The patient is chest pain free at the end of the procedure and EKG changes improved to normal. Considering the above angiographic picture which probably the comminution of underlying coronary artery disease with superimposed thrombus and spasm, we will start her on IV heparin and IV nitroglycerin in addition to aspirin, Plavix, atorvastatin, beta raheem, and lisinopril. We will monitor her in CCU. Procedure was uncomplicated. Finally angiograms after intravascular ultrasound did not show any significant abnormalities from the procedure. Findings were explained to the patient. JOB# [id number] VIOLETA/CAM
[2017-07-11] MEDS ORDERED: PLAVIX PO ONE (12:35)
[2017-07-11] MEDS ORDERED: PLAVIX ONE (13:40)
[2017-07-11] MEDS ORDERED: HEPARIN/ 0.45% NACL-25,000 UNIT/500 ML 25,000 UNIT/500 ML BAG ONE (13:54)
[2017-07-11] MEDS: HEPARIN/ 0.45% NACL-25,000 UNIT/500 ML 25,000 UNIT/500 ML BAG IV SCH (14:00)
--- NOTE | 2017-07-11 14:28 | XRay Report ---
AP CHEST: History: Chest pain. AP view of the chest demonstrates a normal mediastinal and cardiac contour with clear lungs and normal bony and soft tissue structures. IMPRESSION: Normal AP chest.
[2017-07-11] MEDS: LOPRESSOR PO SCH (22:08)
[2017-07-12 04:49] LABS: Basophils % (Auto) 0.7 % (0.0-1.8); Eosinophils % (Auto) 1.1 % (0.0-4.3); Hematocrit 38.8 % (30.3-42.9); Hemoglobin 13.4 gm/dl (10.1-14.3); Mean Corpuscular HGB Conc 35 % (30-34); Mean Corpuscular Hemoglobin 30 pg (28-32); Mean Corpuscular Volume 86 fl (79-97); Platelet Count 243 K/mm3 (140-440); Red Blood Count 4.52 M/mm3 (3.65-5.03); Red Cell Distribution Width 14.5 % (13.2-15.2); White Blood Count 7.5 K/mm3 (4.5-11.0)
[2017-07-12 04:59] LABS: Creatine Kinase MB 5.4 ng/mL (0.0-4.0)
[2017-07-12 05:00] LABS: Anion Gap 18 mmol/L; BUN/Creatinine Ratio 11; Blood Urea Nitrogen 10 mg/dL (7-17); Calcium 9.2 mg/dL (8.4-10.2); Carbon Dioxide 23 mmol/L (22-30); Creatine Kinase 144 units/L (30-135); Glucose 110 mg/dL (65-100); Potassium 3.9 mmol/L (3.6-5.0); Sodium 138 mmol/L (137-145)
[2017-07-12] MEDS: ASPIRIN PO SCH (09:20)
[2017-07-12] MEDS: PLAVIX PO SCH (09:20)
[2017-07-12] MEDS ORDERED: ZESTRIL PO SCH (10:00)
[2017-07-12] MEDS: MORPHINE IV PRN (10:42)
[2017-07-12] MEDS: LOPRESSOR PO SCH ×2 (10:57→17:46)
--- NOTE | 2017-07-12 11:50 | Consultation ---
History of Present Illness Consult date: 07/12/17 Requesting physician: JACEY AMAYA Reason for consult: other (NSTEMI) History of present illness: PULMONARY/CCM CONSULT NOTE (Full dictation # [id number]) Please see dictated notes for full details Past History Past Medical History: hypertension Past Surgical History: No surgical history Social history: denies: smoking, alcohol abuse Family history: hypertension Medications and Allergies Allergies Allergy/AdvReac Type Severity Reaction Status Date / Time No Known Allergies Allergy Unverified 09/15/16 18:59 Home Medications Medication Instructions Recorded Confirmed Last Taken Type Ibuprofen [Motrin] 600 mg PO Q8H PRN #15 tablet 09/16/16 Unknown Rx Sulfamethoxazole/Trimethoprim 1 each PO BID #20 tablet 09/16/16 Unknown Rx [Bactrim DS TAB] Active Meds: Active Medications Al Hydrox/Mg Hydrox/Simethicone (Alum-Mag Hydrox-Simeth [phone]/5ml) 30 ml PO Q4H PRN PRN Reason: Indigestion Alprazolam (Xanax) 0.25 mg PO Q12HR PRN PRN Reason: Anxiety Aspirin (Aspirin) 325 mg PO QDAY MANUEL Last Admin: 07/12/17 09:20 Dose: 325 mg Atorvastatin Calcium (Lipitor) 80 mg PO QHS MANUEL Last Admin: 07/11/17 22:08 Dose: 80 mg Bisacodyl (Dulcolax) 10 mg UT QDAY PRN PRN Reason: constipation unrelieved by MOM Clopidogrel Bisulfate (Plavix) 75 mg PO DAILY [facility] Last Admin: 07/12/17 09:20 Dose: 75 mg Heparin Sodium/Sodium Chloride (Heparin/ 0.45% Nacl-25,000 Unit/500 Ml) 25,000 unit in 500 mls @ 20 mls/hr IV TITRATE MANUEL; 1,000 UNITS/HR PRN Reason: Protocol Last Titration: 07/12/17 06:23 Dose: 900 units/hr, 18 mls/hr Nitroglycerin/Dextrose (Tridil Drip 50mg/250ml) 50 mg in 250 mls @ 3 mls/hr IV TITR ONE; 10 MCG/MIN PRN Reason: Protocol Stop: 07/14/17 19:58 Last Titration: 07/12/17 10:56 Dose: 30 mcg/min, 9 mls/hr Sodium Chloride (Nacl 0.9% 1000 Ml) 1,000 mls @ 100 mls/hr IV DIRECT MANUEL Isosorbide Mononitrate (Imdur) 60 mg PO QDAY [facility] Lisinopril (Zestril) 40 mg PO DAILY [facility] Last Admin: 07/12/17 09:19 Dose: 40 mg Metoprolol Tartrate (Lopressor) 50 mg PO TID [facility] Morphine Sulfate (Morphine) 2 mg IV Q4H PRN PRN Reason: Pain, Moderate (4-6) Last Admin: 07/12/17 10:42 Dose: 2 mg Physical Examination Vital signs: Vital Signs BP 143/101 07/11/17 08:34 Results - Laboratory Findings CBC and BMP: 07/12/17 03:59 07/12/17 03:59 PT/INR, D-dimer PT 13.5 Sec. (12.2-14.9) 07/11/17 08:30 INR 0.98 (0.87-1.13) 07/11/17 08:30 Abnormal lab findings: Abnormal Labs 07/11/17 07/11/17 07/11/17 08:30 08:30 08:30 RBC 5.09 H Hgb 14.7 H Hct 43.9 H MCHC Lymph % (Auto) 36.5 H [place] % (Auto) 7.5 H APTT 24.1 L Activated Clotting Time Heparin Anti-Xa Level Carbon Dioxide 21 L Glucose 188 H Total Creatine Kinase 222 H CK-MB (CK-2) 5.9 H Troponin T 0.069 H Cholesterol 244 H LDL Cholesterol Direct 153 H HDL Cholesterol 79 H 07/11/17 07/11/17 07/11/17 09:33 09:47 11:22 RBC Hgb Hct MCHC Lymph % (Auto) [place] % (Auto) APTT Activated Clotting Time 213 H 252 H Heparin Anti-Xa Level Carbon Dioxide Glucose Total Creatine Kinase 219 H CK-MB (CK-2) 8.0 H Troponin T 0.167 H* D Cholesterol LDL Cholesterol Direct HDL Cholesterol 07/11/17 07/12/17 07/12/17 16:31 03:59 03:59 RBC Hgb Hct MCHC 35 H Lymph % (Auto) [place] % (Auto) APTT Activated Clotting Time Heparin Anti-Xa Level Carbon Dioxide Glucose 110 H Total Creatine Kinase 232 H 144 H CK-MB (CK-2) 9.0 H 5.4 H Troponin T 0.160 H* 0.130 H* Cholesterol LDL Cholesterol Direct HDL Cholesterol 07/12/17 03:59 RBC Hgb Hct MCHC Lymph % (Auto) [place] % (Auto) APTT Activated Clotting Time Heparin Anti-Xa Level 0.24 L Carbon Dioxide Glucose Total Creatine Kinase CK-MB (CK-2) Troponin T Cholesterol LDL Cholesterol Direct HDL Cholesterol
--- NOTE | 2017-07-12 11:55 | Progress Note ---
Assessment and Plan /NSTEMI type I We will cont to monitor at ICU EKG done revealed demonstrates ST elevations in anteroseptal leads and ST depressions in inferior leads. Code STEMI was activated and patient has done cath, s/p LHC with IVUS which revealed nonobstructive proximal LAD disease, normal LV function Continue on heparin and nitro drip per cardiology recommendation Continue on aspirin plavix, lopressor, lisinopril, lipitor. Morphine ordered for pain /Hypertensive urgency Continue home antihypertensive medications Closely monitor blood pressure /Dehydration IV fluid hydration /Hyperlipidemia Continue on Lipitor /DVT/Prophylaxis On heparin drip Physical exam: General appearance: Present: no acute distress - EENT Eyes: Present: PERRL ENT: hearing intact - Neck Neck: Present: supple - Respiratory Respiratory effort: normal Respiratory: bilateral: CTA - Cardiovascular Rhythm: regular Heart Sounds: Present: S1 & S2 - Abdominal General gastrointestinal: Present: soft, non-tender Female genitourinary: Present: deferred - Rectal Rectal Exam: deferred - Integumentary Integumentary: Present: clear, warm, dry - Musculoskeletal Musculoskeletal: strength equal bilaterally - Psychiatric Psychiatric: appropriate mood/affect - Neurologic Neurologic: moves all extremities - Allied Health Allied health notes reviewed: nursing Subjective Date of service: 07/12/17 Interval history: Pt seen and examined c/o chest tightness this am, now eating lunch updated family at bedside Objective - Constitutional Vitals: Vital Signs - 12hr 07/12/17 07/12/17 07/12/17 00:00 01:00 02:00 Temperature Pulse Rate 61 69 61 Pulse Rate [ None] Respiratory 15 13 13 Rate Blood Pressure 111/75 102/72 100/70 O2 Sat by Pulse 93 94 92 Oximetry 07/12/17 07/12/17 07/12/17 02:20 02:21 03:00 Temperature 98.5 F Pulse Rate 64 Pulse Rate [ None] Respiratory 14 Rate Blood Pressure 96/65 O2 Sat by Pulse 97 98 Oximetry 07/12/17 07/12/17 07/12/17 04:00 04:01 04:20 Temperature 98.3 F Pulse Rate 79 Pulse Rate [ 74 None] Respiratory 13 Rate Blood Pressure 97/61 115/72 O2 Sat by Pulse 98 93 Oximetry 07/12/17 07/12/17 07/12/17 05:00 06:00 08:00 Temperature 98.2 F Pulse Rate 61 65 Pulse Rate [ None] Respiratory 12 13 Rate Blood Pressure 105/69 109/72 O2 Sat by Pulse 96 97 Oximetry 07/12/17 07/12/17 09:19 10:57 Temperature Pulse Rate 65 80 Pulse Rate [ None] Respiratory Rate Blood Pressure 116/66 165/110 O2 Sat by Pulse Oximetry - Labs CBC & Chem 7: 07/12/17 03:59 07/12/17 03:59 Labs: Abnormal lab results 07/11/17 07/11/17 07/11/17 Range/Units 09:33 09:47 11:22 MCHC (30-34) % Activated Clotting Time 213 H 252 H (74-137) Heparin Anti-Xa Level (0.3-0.7) U.I./ml Glucose (65-100) mg/dL Total Creatine Kinase 219 H (30-135) units/L CK-MB (CK-2) 8.0 H (0.0-4.0) ng/mL Troponin T 0.167 H* D (0.00-0.029) ng/mL 07/11/17 07/12/17 07/12/17 Range/Units 16:31 03:59 03:59 MCHC 35 H (30-34) % Activated Clotting Time (74-137) Heparin Anti-Xa Level (0.3-0.7) U.I./ml Glucose 110 H (65-100) mg/dL Total Creatine Kinase 232 H 144 H (30-135) units/L CK-MB (CK-2) 9.0 H 5.4 H (0.0-4.0) ng/mL Troponin T 0.160 H* 0.130 H* (0.00-0.029) ng/mL 07/12/17 Range/Units 03:59 MCHC (30-34) % Activated Clotting Time (74-137) Heparin Anti-Xa Level 0.24 L (0.3-0.7) U.I./ml Glucose (65-100) mg/dL Total Creatine Kinase (30-135) units/L CK-MB (CK-2) (0.0-4.0) ng/mL Troponin T (0.00-0.029) ng/mL
[2017-07-12] MEDS ORDERED: TOPROL XL PO SCH (14:00)
[2017-07-12] MEDS: PEPCID PO SCH (14:17)
[2017-07-12] MEDS: IMDUR PO SCH (14:17)
--- NOTE | 2017-07-12 14:57 | Progress Note ---
Assessment and Plan Non STEMi,optmize medical therapy.Considering patient having issues when she gets up,would adjust medications,till B.P stabilizes with ambulation. Discussed with patient and family.They understand. Subjective Date of service: 07/12/17 Principal diagnosis: Non STEMI Interval history: patient was doing well at rest,and when tried to go to beside commode,patient's B.P was elevated,felt tightness in chest and symptoms got better once brought back to bed.No symptoms at rest. Objective Vital Signs Temp Pulse Pulse Pulse Pulse Pulse Resp 07/12/17 14:17 63 07/12/17 12:00 98.2 F 07/12/17 10:57 80 07/12/17 09:19 65 07/12/17 08:00 98.2 F 07/12/17 06:00 65 13 07/12/17 05:00 61 12 07/12/17 04:20 74 07/12/17 04:01 79 13 07/12/17 04:00 98.3 F 07/12/17 03:00 64 14 07/12/17 02:21 98.5 F 07/12/17 02:20 07/12/17 02:00 61 13 07/12/17 01:00 69 13 07/12/17 00:00 61 15 07/11/17 23:51 60 15 07/11/17 23:01 66 13 07/11/17 22:08 80 07/11/17 22:00 83 14 07/11/17 21:56 87 07/11/17 21:55 98.5 F 07/11/17 21:17 85 89 96 H 07/11/17 21:00 88 16 07/11/17 20:45 84 84 13 07/11/17 20:36 82 13 07/11/17 20:15 87 16 07/11/17 20:00 80 13 07/11/17 19:59 78 12 07/11/17 19:45 16 07/11/17 19:30 81 15 07/11/17 19:00 76 13 07/11/17 18:30 75 11 L 07/11/17 18:09 78 13 07/11/17 18:00 74 13 07/11/17 17:48 12 07/11/17 17:00 97.9 F 76 13 12/15/17 16:58 77 15 07/11/17 16:00 79 12 07/11/17 15:40 07/11/17 15:00 87 20 Resp BP BP BP BP Pulse Ox 07/12/17 14:17 101/67 07/12/17 12:00 07/12/17 10:57 165/110 07/12/17 09:19 116/66 07/12/17 08:00 07/12/17 06:00 109/72 97 07/12/17 05:00 105/69 96 07/12/17 04:20 115/72 07/12/17 04:01 97/61 93 07/12/17 04:00 98 07/12/17 03:00 96/65 98 07/12/17 02:21 07/12/17 02:20 97 07/12/17 02:00 100/70 92 07/12/17 01:00 102/72 94 07/12/17 00:00 111/75 93 07/11/17 23:51 114/71 97 07/11/17 23:01 114/71 92 07/11/17 22:08 138/95 07/11/17 22:00 138/95 99 07/11/17 21:56 07/11/17 21:55 07/11/17 21:17 130/94 146/104 149/104 07/11/17 21:00 132/86 98 07/11/17 20:45 143/98 98 07/11/17 20:36 98 07/11/17 20:15 160/112 98 07/11/17 20:00 140/98 97 07/11/17 19:59 142/94 98 07/11/17 19:45 97 07/11/17 19:30 157/109 97 07/11/17 19:00 153/104 98 07/11/17 18:30 151/96 98 07/11/17 18:09 153/98 98 07/11/17 18:00 147/102 98 07/11/17 17:48 100 07/11/17 17:00 131/97 07/11/17 16:58 138/99 07/11/17 16:00 142/96 99 07/11/17 15:40 16 07/11/17 15:00 122/100 99 - Physical Examination HEENT: Positive: PERRL, Normocephaly, Mucus Membranes Moist Neck: Positive: neck supple Cardiac: Positive: Reg Rate and Rhythm Lungs: Positive: clear to auscultation Neuro: Positive: Grossly Intact, Cranial Nerve 2-12 Intact Abdomen: Positive: Unremarkable, Soft, Active Bowel Sounds. Negative: Tender Skin: Positive: Clear. Negative: Rash, Wound Musculoskeletal: No Fluid Collection, No Pain, Normal Range of Motion Gait: Normal Gait Extremities: Absent: edema - Labs and Meds Cardiac Enzymes 07/11/17 07/12/17 Range/Units 16:31 03:59 CK-MB (CK-2) 9.0 H 5.4 H (0.0-4.0) ng/mL CBC 07/12/17 Range/Units 03:59 WBC 7.5 (4.5-11.0) K/mm3 RBC 4.52 (3.65-5.03) M/mm3 Hgb 13.4 (10.1-14.3) gm/dl Hct 38.8 (30.3-42.9) % Plt Count 243 (140-440) K/mm3 Lymph # 2.0 (1.2-5.4) K/mm3 [place] # 0.5 (0.0-0.8) K/mm3 Eos # 0.1 (0.0-0.4) K/mm3 Baso # 0.1 (0.0-0.1) K/mm3 Comprehensive Metabolic Panel 07/12/17 Range/Units 03:59 Sodium 138 (137-145) mmol/L Potassium 3.9 (3.6-5.0) mmol/L Chloride 101.0 (98-107) mmol/L Carbon Dioxide 23 (22-30) mmol/L BUN 10 (7-17) mg/dL Creatinine 0.9 (0.7-1.2) mg/dL Glucose 110 H (65-100) mg/dL Calcium 9.2 (8.4-10.2) mg/dL - Imaging and Cardiology EKG: report reviewed, image reviewed Echo: pending Cardiac cath: pending, other (cath showed moderate proximal LAD disease with area of 4.8 mm2 on ultrasound with no significant disease elsewhere.With preserved EF>medical therapy.) - EKG Sinus rhythms and dysrhythmias: sinus rhythm Repolarization changes or abnormalities: ST or T wave suggestive of ischemia Myocardial infarction: septal [place] (acute or recen, anterior [place] (acute or rec
[2017-07-12] MEDS: HEPARIN/ 0.45% NACL-25,000 UNIT/500 ML 25,000 UNIT/500 ML BAG IV SCH (19:33)
[2017-07-12] MEDS: XANAX PO PRN (22:12)
[2017-07-13] MEDS: LOPRESSOR PO SCH ×4 (02:02→21:39)
--- NOTE | 2017-07-13 09:28 | Consultation ---
REQUESTING PHYSICIAN: Dr. Jocelin Naik and Dr. Piedad Nielson. PULMONARY CRITICAL CARE CONSULT NOTE CONSULTING PHYSICIANS: Marybel Naik MD, and Dr. Piedad Nielson. REASON FOR CONSULTATION: Presumed ST elevation CA. CHIEF COMPLAINT AND HISTORY OF PRESENT ILLNESS: The patient is a 51-year-old -[place] female with past medical history significant for hypertension who presented to the hospital complaining of chest pain. She also complained of some nausea. She told me she had vomiting in association with that. The pain had woken her on the morning of presentation. She received some nitroglycerin, asprin. Initial EKGs showed anteroseptal ST elevations with reciprocal depression. A code STEMI was called. She was taken to the labeling associate. The initial EKG did show anterior ST elevations with reciprocal inferior depressions. In the labeling associate, angiography was done and she was essentially found to have nonobstructive proximal LAD disease, normal LV function and she was scheduled for medical management, transferred to the ICU on heparin drip as well as nitro drip. When I stopped by to see her this morning, she was resting in bed. She had had another episode of chest pain today and had her nitroglycerin increased. She denies any nausea at the time I saw her. She denied any palpitations. No diaphoresis. When asked about tobacco use or abuse history, she denied a history of tobacco to me. This really is as much as the history of presentation as I have. PAST MEDICAL HISTORY: Hypertension, but also chest pain that occurred the day before presentation over here, at that time, she was seen at [facility]. PAST SURGICAL HISTORY: Denies. MEDICATIONS: She was on at the time I stopped by to see her have been reviewed, pertinent medications include the following: Aspirin 325 mg p.o. daily, Lipitor 80 mg p.o. at bedtime, Plavix 75 mg p.o. daily, IV heparin was going per ACS protocol, Imdur 60 mg p.o. daily, lisinopril 40 mg p.o. daily, Lopressor 50 mg p.o. t.i.d., morphine sulfate 2 mg IV q. 4 hours p.r.n. and nitroglycerin drip was going at 30 mcg per minute. ALLERGIES: No known drug allergies. DIET: Slightly obese. Denies acute weight loss or gain in the preceding few weeks to months. FAMILY AND SOCIAL HISTORY: Lives in the community. Denies alcohol, tobacco, or illicit drug use or abuse. There is a family history of hypertension. REVIEW OF SYSTEMS: Complete 13 system review of systems is obtained, it is as in body of the history of above or noncontributory. In particular, also she denied any new onset of leg pain or swelling either unilaterally or bilaterally or any suggestion of venous thromboembolic disorder/DVT. She denied any gross or streaky hemoptysis. She denies gross hematuria. She denies hematemesis. She denies hematochezia or any bleeding diathesis. PHYSICAL EXAMINATION: VITAL SIGNS: At initial presentation in the Emergency Room, vital signs. She was afebrile, temperature 97.9, pulse was 69, respiratory rate was 12, blood pressure was 143/101, oxygen sats were 100%, inspired oxygen concentration at that time was not recorded. GENERAL: Normocephalic, atraumatic, talking to me in full sentences, in no significant respiratory distress. She looks pretty well kempt. HEAD, EYES, EARS, NOSE AND THROAT: She is anicteric. No conjunctival erythema. No gross jugular venous distention. Oropharynx is moist. It is a Mallampati #3. There is no thyromegaly. Grossly, no palpable lymph nodes in the supraclavicular or submandibular lymph node chains. LUNGS: Auscultation of both lung alonso were unremarkable. Lungs were clear bilaterally with good bilateral air movement. HEART: Heart sounds 1 and 2 were heard at the time of my evaluation, regular rate and rhythm. No rubs, no murmurs. ABDOMEN: Soft. Bowel sounds are positive, nontender. No palpable hepatosplenomegaly. EXTREMITIES: Without overt digital clubbing, cyanosis, no pedal edema. Dorsalis pedal pulses were palpable bilaterally. She had had a dressing to the radial area through which the left heart catheterization was assessed. NEUROLOGIC: Pupils are equal, round, about 3 mm, reactive to light. Extraocular muscle movements were intact. She moved all 4 extremities spontaneously. LABORATORY DATA: From my review are as follows: White cell count 5200, hemoglobin 14.7, hematocrit 43.9, platelet count 273. No band forms were reported. INR 0.98. Serum sodium was 137, potassium 4.2, chloride 98, bicarbonate 21, BUN 8, creatinine 0.8, glucose was 188. Troponin 0.167. CPK was 219 at presentation. LDL cholesterol was 153. No microbiologic studies were done. IMAGING DATA: The chest x-ray was done. I have reviewed the chest x-ray, essentially it is a normal chest x-ray, no cardiomegaly, no pneumothorax. No focal infiltrates. The radiologist concurs with that assessment. ASSESSMENT: 1. Acute ST elevation myocardial infarction with nonocclusive disease. 2. Coronary artery disease. 3. Hypertension, uncontrolled. 4. Hyperlipidemia. 5. Obesity. PLAN: Continue ACS recommendations as per Cardiology. Continue nitroglycerin drip at this point titrating to control symptoms, continue IV heparin. Continue Plavix and antiplatelet therapy. Continue secondary prevention methods with antilipid medication. Continue aspirin. Continue RADHA inhibitors. Continued tobacco abstinence has been counseled. Continue better diet, dietary habits have been counseled. I doubt we are dealing with venous thromboembolic phenomenon. I will defer a venous thromboembolic disorder workup in this case. I will be adding GI prophylaxis, especially with her on full anticoagulation. Flu and pneumonia vaccination will be per protocol. Thank you very much for the consult. We will watch her overnight in the Intensive Care Unit and reevaluate in the morning. We will continue to follow Cardiology recommendations. We will follow along and make further recommendations as picture progresses/becomes clearer. JOB# [id number] HENRI/CAM
--- NOTE | 2017-07-13 11:19 | Progress Note ---
Assessment and Plan Non STEMi,optmize medical therapy. Patient is without complains today. Metoprolol and Lisinopril on hold because of low B.P and low heart rate. Will decrease dose of Metoprolol and Lisinoril. Discussed with ,will plan to transfer to telemetry. Subjective Date of service: 07/13/17 Principal diagnosis: Non STEMI Interval history: patient without complaints today,in S.R,B.P on low side,Metoprolol on hold.no chest pain or elevated B.P when she got up today. Objective Vital Signs Temp Pulse Resp BP Pulse Ox 07/13/17 10:30 85 12 110/68 93 07/13/17 10:00 79 12 87/64 07/13/17 09:30 85 13 87/64 07/13/17 09:20 55 L 100/65 07/13/17 09:04 88 19 100/65 07/13/17 08:30 87 21 103/65 07/13/17 08:00 98.3 F 55 L 14 100/65 100 07/13/17 07:30 78 14 102/54 97 07/13/17 07:00 60 14 103/68 97 07/13/17 06:30 63 14 103/66 98 07/13/17 06:00 62 14 97/64 95 07/13/17 05:30 59 L 15 105/53 94 07/13/17 05:00 60 14 94/56 96 07/13/17 04:30 63 13 93/61 94 07/13/17 04:00 98.7 F 61 14 104/58 100 07/13/17 03:30 65 12 87/55 93 07/13/17 03:00 64 12 97/61 97 07/13/17 02:30 69 13 92/56 95 07/13/17 02:02 82 99/54 07/13/17 02:00 63 14 94/57 95 07/13/17 01:30 68 13 95/53 07/13/17 01:00 65 13 90/60 94 07/13/17 00:30 68 13 87/54 95 07/13/17 00:00 97.9 F 65 13 94/56 94 07/12/17 23:30 66 15 96/66 97 07/12/17 23:00 66 13 91/54 93 07/12/17 22:31 67 14 85/55 97 07/12/17 22:30 65 17 85/55 97 07/12/17 22:00 69 13 91/59 94 07/12/17 21:30 79 18 103/57 95 07/12/17 21:00 72 16 91/63 95 07/12/17 20:30 74 12 106/66 93 07/12/17 20:00 97.8 F 82 18 110/76 99 07/12/17 19:00 65 14 99/56 93 07/12/17 18:00 71 14 94/56 07/12/17 17:46 68 97/66 07/12/17 17:00 68 10 L 99/65 95 07/12/17 16:00 98.3 F 66 14 97/61 98 07/12/17 15:00 70 14 101/59 100 07/12/17 14:17 63 101/67 07/12/17 14:00 98.2 F 73 15 100/64 94 07/12/17 13:00 67 11 L 110/70 98 07/12/17 12:00 98.2 F 65 10 L 116/78 98 - Physical Examination HEENT: Positive: PERRL, Normocephaly, Mucus Membranes Moist Neck: Positive: neck supple Cardiac: Positive: Reg Rate and Rhythm Lungs: Positive: Normal Breath Sounds Neuro: Positive: Grossly Intact, Cranial Nerve 2-12 Intact Abdomen: Positive: Unremarkable, Soft, Active Bowel Sounds. Negative: Tender Skin: Positive: Clear. Negative: Rash, Wound Musculoskeletal: No Fluid Collection, No Pain, Normal Range of Motion Gait: Normal Gait Extremities: Absent: edema - Imaging and Cardiology EKG: report reviewed, image reviewed Echo: pending Cardiac cath: pending, other (cath showed moderate proximal LAD disease with area of 4.8 mm2 on ultrasound with no significant disease elsewhere.With preserved EF>medical therapy.) - Telemetry EKG Rhythm: Sinus Rhythm - EKG Sinus rhythms and dysrhythmias: sinus rhythm Repolarization changes or abnormalities: ST or T wave suggestive of ischemia Myocardial infarction: septal [place] (acute or recen, anterior [place] (acute or rec
[2017-07-13] MEDS: ZESTRIL PO SCH (12:09)
[2017-07-13] MEDS: PLAVIX PO SCH (12:09)
[2017-07-13] MEDS: PEPCID PO SCH (12:09)
[2017-07-13] MEDS: ASPIRIN PO SCH (12:12)
[2017-07-13] MEDS: IMDUR PO SCH (14:36)
--- NOTE | 2017-07-13 15:52 | Progress Note ---
Assessment and Plan /NSTEMI type I admitted at ICU EKG done revealed demonstrates ST elevations in anteroseptal leads and ST depressions in inferior leads. Code STEMI was activated and s/p LHC with IVUS which revealed nonobstructive proximal LAD disease, normal LV function started on heparin and nitro drip per cardiology recommendation Continue on aspirin plavix, lopressor, lisinopril, lipitor. Morphine ordered for pain d/wang heparin and nitro drip today, reduced the dose of BP meds transfer to telemetry /Hypertensive urgency started home antihypertensive medications Closely monitor blood pressure, now normotensive, reduced the dose of Metoprolol and Lisinoril. /Dehydration IV fluid hydration /Hyperlipidemia Continue on Lipitor /DVT/Prophylaxis s/p heparin drip, will start on lovenox Brief history: Patient is a 51-year-old male with a past medical history of hypertension who present to the Emergency Department for chest pain. Patient found to have Elevated troponin, EGK was done and showed ST elevations in anteroseptal leads and ST depressions in inferior leads. Code STEMI was activated and patient has taken to [employer]. She was just discharge from [facility] 2 days ago; and had negative stress test. Physical exam: General appearance: Present: no acute distress - EENT Eyes: Present: PERRL ENT: hearing intact - Neck Neck: Present: supple - Respiratory Respiratory effort: normal Respiratory: bilateral: CTA - Cardiovascular Rhythm: regular Heart Sounds: Present: S1 & S2 - Abdominal General gastrointestinal: Present: soft, non-tender Female genitourinary: Present: deferred - Rectal Rectal Exam: deferred - Integumentary Integumentary: Present: clear, warm, dry - Musculoskeletal Musculoskeletal: strength equal bilaterally - Psychiatric Psychiatric: appropriate mood/affect - Neurologic Neurologic: moves all extremities - Allied Health Allied health notes reviewed: nursing Subjective Date of service: 07/13/17 Principal diagnosis: Non STEMI Interval history: Pt seen and examined no c/o chest pain, BP was low this morning updated family at bedside Objective - Constitutional Vitals: Vital Signs - 12hr 07/13/17 07/13/17 07/13/17 04:00 04:30 05:00 Temperature 98.7 F Pulse Rate 61 63 60 Respiratory 14 13 14 Rate Blood Pressure 104/58 93/61 94/56 O2 Sat by Pulse 100 94 96 Oximetry 07/13/17 07/13/1707/13/17 05:30 06:00 06:30 Temperature Pulse Rate 59 L 62 63 Respiratory 15 14 14 Rate Blood Pressure 105/53 97/64 103/66 O2 Sat by Pulse 94 95 98 Oximetry 07/13/17 07/13/17 07/13/17 07:00 07:30 08:00 Temperature 98.3 F Pulse Rate 60 78 55 L Respiratory 14 14 14 Rate Blood Pressure 103/68 102/54 100/65 O2 Sat by Pulse 97 97 100 Oximetry 07/13/17 07/13/17 07/13/17 08:30 09:04 09:20 Temperature Pulse Rate 87 88 55 L Respiratory 21 19 Rate Blood Pressure 103/65 100/65 100/65 O2 Sat by Pulse Oximetry 07/13/17 07/13/17 07/13/17 09:30 10:00 10:30 Temperature Pulse Rate 85 79 85 Respiratory 13 12 12 Rate Blood Pressure 87/64 87/64 110/68 O2 Sat by Pulse 93 Oximetry 07/13/17 07/13/17 07/13/17 11:00 11:30 12:00 Temperature 98.1 F Pulse Rate 78 75 84 Respiratory 14 9 L 16 Rate Blood Pressure 120/75 120/75 115/80 O2 Sat by Pulse 93 94 93 Oximetry 07/13/17 07/13/17 07/13/17 12:09 12:10 12:30 Temperature Pulse Rate 77 81 81 Respiratory 12 Rate Blood Pressure 115/80 115/80 115/80 O2 Sat by Pulse 96 Oximetry 07/13/17 07/13/17 07/13/17 13:00 13:30 14:00 Temperature Pulse Rate 71 69 70 Respiratory 11 L 11 L 13 Rate Blood Pressure 124/85 115/80 127/86 O2 Sat by Pulse 94 96 96 Oximetry 07/13/17 07/13/17 07/13/17 14:30 14:36 15:00 Temperature Pulse Rate 69 70 67 Respiratory 14 15 Rate Blood Pressure 124/85 127/86 121/80 O2 Sat by Pulse 96 Oximetry 07/13/17 15:30 Temperature Pulse Rate 72 Respiratory 17 Rate Blood Pressure 121/80 O2 Sat by Pulse 94 Oximetry - Labs CBC & Chem 7: 07/12/17 03:59 07/12/17 03:59 Labs: Abnormal lab results 07/13/17 Range/Units 04:12 Heparin Anti-Xa Level 0.19 L (0.3-0.7) U.I./ml
[2017-07-13] MEDS ORDERED: LOPRESSOR PO SCH (22:00)
--- NOTE | 2017-07-13 22:21 | Progress Note ---
Assessment and Plan No complaint of chest pain or shortness of breath. Resting on room air. O2 saturation 97%.Patient complaining slight dizziness. Blood pressure 98/58.Nurse taking care of the patient told me she held evening lopressor. Recommend check blood pressure before giving it to her in the morning. - Patient Problems (1) STEMI (ST elevation myocardial infarction) Current Visit: Yes Status: Acute Plan to address problem: Management as per cardiology. (2) Chest pain Current Visit: Yes Status: Acute Plan to address problem: No complaint of chest pain or cough. Subjective Date of service: 07/13/17 Principal diagnosis: Non STEMI Interval history: No complaint of chest pain or shortness of breath. Resting on room air. O2 saturation 97%.Patient complaining slight dizziness. Blood pressure 98/58.Nurse taking care of the patient told me she held evening lopressor. Recommend check blood pressure before giving it to her in the morning. Objective Vital Signs - 12hr 07/13/17 07/13/17 07/13/17 10:30 11:00 11:30 Temperature Pulse Rate 85 78 75 Respiratory 12 14 9 L Rate Blood Pressure 110/68 120/75 120/75 O2 Sat by Pulse 93 93 94 Oximetry 07/13/17 07/13/17 07/13/17 12:00 12:09 12:10 Temperature 98.1 F Pulse Rate 84 77 81 Respiratory 16 16 Rate Blood Pressure 115/80 115/80 115/80 O2 Sat by Pulse 93 94 Oximetry 07/13/17 07/13/17 07/13/17 12:30 13:00 13:30 Temperature Pulse Rate 81 71 69 Respiratory 12 11 L 11 L Rate Blood Pressure 115/80 124/85 115/80 O2 Sat by Pulse 96 94 96 Oximetry 07/13/17 07/13/17 07/13/17 14:00 14:30 14:36 Temperature Pulse Rate 70 69 70 Respiratory 13 14 Rate Blood Pressure 127/86 124/85 127/86 O2 Sat by Pulse 96 96 Oximetry 07/13/17 07/13/17 07/13/17 15:00 15:30 16:00 Temperature 97.6 F Pulse Rate 67 72 75 Respiratory 15 17 19 Rate Blood Pressure 121/80 121/80 109/70 O2 Sat by Pulse 94 94 Oximetry 07/13/17 07/13/17 07/13/17 17:27 17:28 20:00 Temperature 98.1 F 97.8 F Pulse Rate 76 75 Respiratory 16 18 18 Rate Blood Pressure 97/62 98/58 O2 Sat by Pulse 98 97 Oximetry Constitutional: no acute distress, alert Eyes: non-icteric Neck: supple, no lymphadenopathy Ascultation: Bilateral: clear Cardiovascular: regular rate and rhythm Gastrointestinal: normoactive bowel sounds, soft, non-tender Integumentary: normal Extremities: no cyanosis, no edema Neurologic: normal mental status, non-focal exam, pupils equal and round, CN II- XII normal Psychiatric: mood appropriate CBC and BMP: 07/12/17 03:59 07/12/17 03:59 ABG, PT/INR, D-dimer: PT/INR, D-dimer PT 13.5 Sec. (12.2-14.9) 07/11/17 08:30 INR 0.98 (0.87-1.13) 07/11/17 08:30 Abnormal lab findings: Abnormal Labs 07/11/17 07/11/17 07/11/17 08:30 08:30 08:30 RBC 5.09 H Hgb 14.7 H Hct 43.9 H MCHC Lymph % (Auto) 36.5 H [place] % (Auto) 7.5 H APTT 24.1 L Activated Clotting Time Heparin Anti-Xa Level Carbon Dioxide 21 L Glucose 188 H Total Creatine Kinase 222 H CK-MB (CK-2) 5.9 H Troponin T 0.069 H Cholesterol 244 H LDL Cholesterol Direct 153 H HDL Cholesterol 79 H 07/11/17 07/11/17 07/11/17 09:33 09:47 11:22 RBC Hgb Hct MCHC Lymph % (Auto) [place] % (Auto) APTT Activated Clotting Time 213 H 252 H Heparin Anti-Xa Level Carbon Dioxide Glucose Total Creatine Kinase 219 H CK-MB (CK-2) 8.0 H Troponin T 0.167 H* D Cholesterol LDL Cholesterol Direct HDL Cholesterol 07/11/17 07/12/17 07/12/17 16:31 03:59 03:59 RBC Hgb Hct MCHC 35 H Lymph % (Auto) [place] % (Auto) APTT Activated Clotting Time Heparin Anti-Xa Level Carbon Dioxide Glucose 110 H Total Creatine Kinase 232 H 144 H CK-MB (CK-2) 9.0 H 5.4 H Troponin T 0.160 H* 0.130 H* Cholesterol LDL Cholesterol Direct HDL Cholesterol 07/12/17 07/13/17 03:59 04:12 RBC Hgb Hct MCHC Lymph % (Auto) [place] % (Auto) APTT Activated Clotting Time Heparin Anti-Xa Level 0.24 L 0.19 L Carbon Dioxide Glucose Total Creatine Kinase CK-MB (CK-2) Troponin T Cholesterol LDL Cholesterol Direct HDL Cholesterol Chest x-ray: report reviewed (Normal AP chest.), image reviewed
[2017-07-14] MEDS: MORPHINE IV PRN ×2 (02:19→09:14)
[2017-07-14 07:15] LABS: Anion Gap 17 mmol/L; BUN/Creatinine Ratio 12; Blood Urea Nitrogen 11 mg/dL (7-17); Calcium 8.9 mg/dL (8.4-10.2); Carbon Dioxide 26 mmol/L (22-30); Chloride 103.3 mmol/L (98-107); Glucose 111 mg/dL (65-100); Potassium 4.2 mmol/L (3.6-5.0); Sodium 142 mmol/L (137-145)
[2017-07-14 07:17] LABS: Basophils % (Auto) 0.5 % (0.0-1.8); Eosinophils % (Auto) 3.4 % (0.0-4.3); Hematocrit 37.6 % (30.3-42.9); Hemoglobin 12.3 gm/dl (10.1-14.3); Mean Corpuscular HGB Conc 33 % (30-34); Mean Corpuscular Hemoglobin 28 pg (28-32); Mean Corpuscular Volume 87 fl (79-97); Platelet Count 225 K/mm3 (140-440); Red Blood Count 4.35 M/mm3 (3.65-5.03); Red Cell Distribution Width 14.7 % (13.2-15.2); White Blood Count 5.5 K/mm3 (4.5-11.0)
--- NOTE | 2017-07-14 09:45 | Progress Note ---
Assessment and Plan Assessment: NSTEMI type I CAD Abnormal EKG HTN Obesity Anxiety Plan: Emilia this AM negative for AMI. EKG with NAF. Cont ASA 325, plavix, lipitor, lopressor, lisinopril, imdur. Initiate Ranexa and cont to monitor overnight. Assessment and plan reviewed with pt at bedside. The patient has been seen in conjunction with Dr. Ileana Bazan who agrees with the assessment and plan of care. Subjective Date of service: 07/14/17 Principal diagnosis: Non STEMI Interval history: Pt resting in bed, had transient bout of midsternal chest pressure with nausea this AM. pt received morphine d/t c/o chest pain and states chest pain is currently resolved. 12-lead EKG showed NAF. Emilia pending. Objective Last Vital Signs Temp 97.8 F 07/14/17 08:26 Pulse 73 07/14/17 08:26 Resp 20 07/14/17 09:14 BP 96/60 07/14/17 08:26 Pulse Ox 96 07/14/17 08:26 - Physical Examination HEENT: Positive: PERRL, Normocephaly, Mucus Membranes Moist Neck: Positive: neck supple Cardiac: Positive: Reg Rate and Rhythm, S1/S2 Lungs: Positive: clear to auscultation Neuro: Positive: Grossly Intact, Cranial Nerve 2-12 Intact Abdomen: Positive: Unremarkable, Soft, Active Bowel Sounds. Negative: Tender Skin: Positive: Clear. Negative: Rash, Wound Musculoskeletal: No Fluid Collection, No Pain, Normal Range of Motion Gait: Normal Gait Extremities: Absent: edema - Labs and Meds CBC 07/14/17 Range/Units 06:29 WBC 5.5 (4.5-11.0) K/mm3 RBC 4.35 (3.65-5.03) M/mm3 Hgb 12.3 (10.1-14.3) gm/dl Hct 37.6 (30.3-42.9) % Plt Count 225 (140-440) K/mm3 Lymph # 2.1 (1.2-5.4) K/mm3 [place] # 0.4 (0.0-0.8) K/mm3 Eos # 0.2 (0.0-0.4) K/mm3 Baso # 0.0 (0.0-0.1) K/mm3 Comprehensive Metabolic Panel 07/14/17 Range/Units 06:29 Sodium 142 (137-145) mmol/L Potassium 4.2 (3.6-5.0) mmol/L Chloride 103.3 (98-107) mmol/L Carbon Dioxide 26 (22-30) mmol/L BUN 11 (7-17) mg/dL Creatinine 0.9 (0.7-1.2) mg/dL Glucose 111 H (65-100) mg/dL Calcium 8.9 (8.4-10.2) mg/dL - Imaging and Cardiology EKG: report reviewed, image reviewed Echo: pending Cardiac cath: pending, other (cath showed moderate proximal LAD disease with area of 4.8 mm2 on ultrasound with no significant disease elsewhere.With preserved EF>medical therapy.) - EKG Sinus rhythms and dysrhythmias: sinus rhythm Repolarization changes or abnormalities: ST or T wave suggestive of ischemia Myocardial infarction: septal NJ (acute or recen, anterior NJ (acute or rec
[2017-07-14] MEDS: PLAVIX PO SCH (09:54)
[2017-07-14] MEDS: IMDUR PO SCH (09:54)
[2017-07-14] MEDS: PEPCID PO SCH (09:54)
[2017-07-14] MEDS: ASPIRIN PO SCH (09:54)
[2017-07-14] MEDS: LOPRESSOR PO SCH ×2 (09:55→22:12)
[2017-07-14] MEDS ORDERED: ZESTRIL PO SCH (10:00)
[2017-07-14 10:12] LABS: Creatine Kinase MB 1.1 ng/mL (0.0-4.0)
[2017-07-14] MEDS: ZESTRIL PO SCH (12:46)
--- NOTE | 2017-07-14 18:50 | Progress Note ---
Assessment and Plan - NSTEMI type I Had intermittent chest pain today. No shortness of breath. Emilia improving Cardiac card showed nonrestrictive obstructive disease. Continu with Ranexa, initiated by Cardiololgy today. contiku with ASA, Plavix, Lopressor, imbur and lisinopril - CAD; S/p cardiac cath: contiu with above regimen - HTN : now hypotensidve; Will hold lisinopril for SBP < 100 - Obesity: [id number] on diet and exercise - DVT PPx: with Lovenox and GI with pepcid -Disposition: D/c in am if no more chest pain and okay with Cardiology Subjective Date of service: 07/14/17 Principal diagnosis: Non STEMI Interval history: Had intermitent chest pain today. denies shortness of breath Objective - Constitutional Vitals: Vital Signs - 12hr 07/14/17 07/14/17 07/14/17 08:26 09:00 09:14 Temperature 97.8 F 97.2 F L Pulse Rate 73 97 H Pulse Rate [ Apical] Respiratory 18 20 20 Rate Blood Pressure Blood Pressure 96/60 190/119 [Right] O2 Sat by Pulse 96 100 Oximetry 07/14/17 07/14/17 07/14/17 09:40 09:44 09:54 Temperature 97.9 F Pulse Rate 75 75 Pulse Rate [ Apical] Respiratory 16 16 Rate Blood Pressure 125/85 Blood Pressure 125/85 [Right] O2 Sat by Pulse 99 Oximetry 07/14/17 07/14/17 07/14/17 09:55 10:00 12:21 Temperature 98.1 F Pulse Rate 75 69 Pulse Rate [ 97 H Apical] Respiratory 18 Rate Blood Pressure 125/85 Blood Pressure 99/66 [Right] O2 Sat by Pulse 97 Oximetry 07/14/17 07/14/17 07/14/17 12:46 14:22 15:44 Temperature 98.2 F Pulse Rate 69 66 65 Pulse Rate [ Apical] Respiratory 18 Rate Blood Pressure 96/66 94/58 Blood Pressure [Right] O2 Sat by Pulse 100 Oximetry General appearance: Present: no acute distress, well-nourished - EENT Eyes: PERRL, EOM intact - Neck Neck: supple, normal ROM - Respiratory Respiratory effort: normal Respiratory: bilateral: CTA - Cardiovascular Rhythm: regular Heart Sounds: Present: S1 & S2. Absent: gallop, rub Extremities: pulses intact, No edema, normal color, Full ROM - Gastrointestinal General gastrointestinal: Present: soft, non-tender, non-distended, normal bowel sounds - Integumentary Integumentary: clear, warm, dry - Musculoskeletal Musculoskeletal: 1, strength equal bilaterally - Neurologic Neurologic: moves all extremities - Psychiatric Psychiatric: memory intact, appropriate mood/affect, intact judgment & insight - Labs CBC & Chem 7: 07/14/17 06:29 07/14/17 06:29 Labs: Abnormal lab results 07/14/17 07/14/17 07/14/17 Range/Units 06:29 06:29 06:29 Lymph % (Auto) 37.5 H (13.4-35.0) % Heparin Anti-Xa Level < 0.10 L (0.3-0.7) U.I./ml Glucose 111 H (65-100) mg/dL Troponin T (0.00-0.029) ng/mL 07/14/17 Range/Units 09:36 Lymph % (Auto) (13.4-35.0) % Heparin Anti-Xa Level (0.3-0.7) U.I./ml Glucose (65-100) mg/dL Troponin T 0.033 H D (0.00-0.029) ng/mL
--- NOTE | 2017-07-14 19:02 | Progress Note ---
Assessment and Plan Patient alert, awake. No complaint of chest pain, shortness of breath , dizziness or cough at this time.O2 saturation 97% on room air. Patient has no complaint of pulmonary symptoms at this time. Signing off the case. If any pulmonary help needed, call us back. - Patient Problems (1) STEMI (ST elevation myocardial infarction) Current Visit: Yes Status: Acute Plan to address problem: Management as per cardiology. (2) Chest pain Current Visit: Yes Status: Acute Plan to address problem: No complaint of chest pain or cough at this time. Subjective Date of service: 07/14/17 Principal diagnosis: Non STEMI Interval history: Patient alert, awake. No complaint of chest pain, shortness of breath , dizziness or cough at this time.O2 saturation 97% on room air. Objective Vital Signs - 12hr 07/14/17 07/14/17 07/14/17 08:26 09:00 09:14 Temperature 97.8 F 97.2 F L Pulse Rate 73 97 H Pulse Rate [ Apical] Respiratory 18 20 20 Rate Blood Pressure Blood Pressure 96/60 190/119 [Right] O2 Sat by Pulse 96 100 Oximetry 07/14/17 07/14/17 07/14/17 09:40 09:44 09:54 Temperature 97.9 F Pulse Rate 75 75 Pulse Rate [ Apical] Respiratory 16 16 Rate Blood Pressure 125/85 Blood Pressure 125/85 [Right] O2 Sat by Pulse 99 Oximetry 07/14/17 07/14/17 07/14/17 09:55 10:00 12:21 Temperature 98.1 F Pulse Rate 75 69 Pulse Rate [ 97 H Apical] Respiratory 18 Rate Blood Pressure 125/85 Blood Pressure 99/66 [Right] O2 Sat by Pulse 97 Oximetry 07/14/17 07/14/17 07/14/17 12:46 14:22 15:44 Temperature 98.2 F Pulse Rate 69 66 65 Pulse Rate [ Apical] Respiratory 18 Rate Blood Pressure 96/66 94/58 Blood Pressure [Right] O2 Sat by Pulse 100 Oximetry Constitutional: no acute distress, alert Eyes: non-icteric Neck: supple, no lymphadenopathy Ascultation: Bilateral: clear Cardiovascular: regular rate and rhythm Gastrointestinal: normoactive bowel sounds, soft, non-tender Integumentary: normal Extremities: no cyanosis, no edema Neurologic: normal mental status, non-focal exam, pupils equal and round, CN II- XII normal Psychiatric: mood appropriate CBC and BMP: 07/14/17 06:29 07/14/17 06:29 ABG, PT/INR, D-dimer: PT/INR, D-dimer PT 13.5 Sec. (12.2-14.9) 07/11/17 08:30 INR 0.98 (0.87-1.13) 07/11/17 08:30 Abnormal lab findings: Abnormal Labs 07/11/17 07/11/17 07/11/17 08:30 08:30 08:30 RBC 5.09 H Hgb 14.7 H Hct 43.9 H MCHC Lymph % (Auto) 36.5 H [place] % (Auto) 7.5 H APTT 24.1 L Activated Clotting Time Heparin Anti-Xa Level Carbon Dioxide 21 L Glucose 188 H Total Creatine Kinase 222 H CK-MB (CK-2) 5.9 H Troponin T 0.069 H Cholesterol 244 H LDL Cholesterol Direct 153 H HDL Cholesterol 79 H 07/11/17 07/11/17 07/11/17 09:33 09:47 11:22 RBC Hgb Hct MCHC Lymph % (Auto) [place] % (Auto) APTT Activated Clotting Time 213 H 252 H Heparin Anti-Xa Level Carbon Dioxide Glucose Total Creatine Kinase 219 H CK-MB (CK-2) 8.0 H Troponin T 0.167 H* D Cholesterol LDL Cholesterol Direct HDL Cholesterol 07/11/17 07/12/17 07/12/17 16:31 03:59 03:59 RBC Hgb Hct MCHC 35 H Lymph % (Auto) [place] % (Auto) APTT Activated Clotting Time Heparin Anti-Xa Level Carbon Dioxide Glucose 110 H Total Creatine Kinase 232 H 144 H CK-MB (CK-2) 9.0 H 5.4 H Troponin T 0.160 H* 0.130 H* Cholesterol LDL Cholesterol Direct HDL Cholesterol 07/12/17 07/13/17 07/14/17 03:59 04:12 06:29 RBC Hgb Hct MCHC Lymph % (Auto) [place] % (Auto) APTT Activated Clotting Time Heparin Anti-Xa Level 0.24 L 0.19 L < 0.10 L Carbon Dioxide Glucose Total Creatine Kinase CK-MB (CK-2) Troponin T Cholesterol LDL Cholesterol Direct HDL Cholesterol 07/14/17 07/14/17 07/14/17 06:29 06:29 09:36 RBC Hgb Hct MCHC Lymph % (Auto) 37.5 H [place] % (Auto) APTT Activated Clotting Time Heparin Anti-Xa Level Carbon Dioxide Glucose 111 H Total Creatine Kinase CK-MB (CK-2) Troponin T 0.033 H D Cholesterol LDL Cholesterol Direct HDL Cholesterol
[2017-07-14] MEDS: XANAX PO PRN (21:49)
[2017-07-14] MEDS ORDERED: LOVENOX SUB-Q SCH (22:00)
[2017-07-14] MEDS: RANEXA ER PO SCH (22:14)
[2017-07-15] MEDS: MORPHINE IV PRN (05:50)
[2017-07-15] MEDS: RANEXA ER PO SCH (09:17)
[2017-07-15] MEDS: IMDUR PO SCH (09:17)
[2017-07-15] MEDS: ASPIRIN PO SCH (09:17)
[2017-07-15] MEDS: PEPCID PO SCH (09:17)
[2017-07-15] MEDS: PLAVIX PO SCH (09:17)
[2017-07-15] MEDS: LOPRESSOR PO SCH (09:18)
[2017-07-15] MEDS ORDERED: ZESTRIL PO SCH (10:00)
--- NOTE | 2017-07-15 10:57 | Progress Note ---
Assessment and Plan Assessment: NSTEMI type I - secondary to thrombus and spasm with underlying moderately severe prox LAD disease CAD Abnormal EKG HTN Obesity Anxiety Plan: Currently stable cardiac status. Cont present cardiac management. Pt may discharge home from cardiology standpoint. Follow up in our [place] office with Dr. Mitchell on 07/23/2017 @ 3:30PM. Assessment and plan reviewed with pt at bedside. The patient has been seen in conjunction with Dr. Ileana Bazan who agrees with the assessment and plan of care. Subjective Date of service: 07/15/17 Principal diagnosis: Non STEMI Interval history: Pt resting in bed, no current cardiac complaints. VSS. Objective Last Vital Signs Temp 97.6 F 07/15/17 03:17 Pulse 69 07/15/17 10:00 Resp 25 H 07/15/17 05:50 BP 116/76 07/15/17 09:18 Pulse Ox 96 07/15/17 03:17 - Physical Examination General: No Apparent Distress HEENT: Positive: PERRL, Normocephaly, Mucus Membranes Moist Neck: Positive: neck supple Cardiac: Positive: Reg Rate and Rhythm, S1/S2 Lungs: Positive: clear to auscultation Neuro: Positive: Grossly Intact, Cranial Nerve 2-12 Intact Abdomen: Positive: Unremarkable, Soft, Active Bowel Sounds. Negative: Tender Skin: Positive: Clear. Negative: Rash, Wound Musculoskeletal: No Fluid Collection, No Pain, Normal Range of Motion Gait: Normal Gait Extremities: Absent: edema - Imaging and Cardiology EKG: report reviewed, image reviewed Echo: pending Cardiac cath: pending, other (cath showed moderate proximal LAD disease with area of 4.8 mm2 on ultrasound with no significant disease elsewhere.With preserved EF>medical therapy.) - EKG Sinus rhythms and dysrhythmias: sinus rhythm Repolarization changes or abnormalities: ST or T wave suggestive of ischemia Myocardial infarction: septal [place] (acute or recen, anterior [place] (acute or rec
--- NOTE | 2017-07-15 12:18 | Discharge Summary ---
Providers - Providers Date of Admission: 07/11/17 08:56 Attending physician: AP CALVERT MD 07/11/17 08:44 Consult to Physician [CONS] Urgent Consulting Provider: BENTON CHAVEZ Reason For Exam: stemi Notified:: y 07/11/17 10:08 Consult to Cardiac Rehabilitation [CONS] Routine Reason For Exam: Cardiac Rehab Evaluation 07/12/17 06:33 Consult to Physician [CONS] Urgent Consulting Provider: PHYLICIA ALEXANDER Reason For Exam: ccu admit Place consult to:: Dr. Ferreira Notified:: no Primary care physician: TOBACCO SCRAP SIFTER Hospitalization Condition: Stable Hospital course: 51-year-old male who pw with CP, sp recent NSTEMI type 1 and sp LHC which showed non obstructive proximal disease, she was admitted to [facility]. -her cad meds were optimized, she received Cardiology consult -Her medications optimized. No further cardiac testing was recommended for her and she was subsequently discharged Discharge diagnoses N STEMI type I CAD Hypertension Obesity Disposition: DC-01 TO HOME OR SELFCARE Time spent for discharge: 33 minutes Core Measure Documentation - Palliative Care Palliative Care/ Comfort Measures: Not Applicable - Core Measures Any of the following diagnoses?: acute ID - Acute ID Discharge Requirements Aspirin at discharge: Yes RADHA/ARB for LVSD if EF <40%: Yes Beta raheem at discharge: Yes Statin for LDL = or >100 mg/dl on DC: Yes Exam - Constitutional Vitals: Temp Pulse Resp BP Pulse Ox 97.6 F 69 25 H 116/76 96 07/15/17 03:17 07/15/17 10:00 07/15/17 05:50 07/15/17 09:18 07/15/17 03:17 General appearance: Present: no acute distress, well-nourished - EENT Eyes: Present: PERRL ENT: hearing intact, clear oral mucosa - Neck Neck: Present: supple, normal ROM - Respiratory Respiratory effort: normal Respiratory: bilateral: CTA - Cardiovascular Heart Sounds: Present: S1 & S2. Absent: rub, click - Extremities Extremities: pulses symmetrical, No edema Peripheral Pulses: within normal limits - Abdominal General gastrointestinal: Present: soft, non-tender, non-distended, normal bowel sounds Female genitourinary: Present: normal - Integumentary Integumentary: Present: clear, warm, dry - Musculoskeletal Musculoskeletal: gait normal, strength equal bilaterally - Psychiatric Psychiatric: appropriate mood/affect, intact judgment & insight - Neurologic Neurologic: CNII-XII intact, moves all extremities Plan Follow up with: EBNTON CHAVEZ MD [Staff Physician] - 7 Days Forms: [facility] PCI D/C Instructions Prescriptions: Aspirin EC [Aspirin Enteric Coated TAB] 81 mg PO QDAY #30 tablet. Clopidogrel [Plavix] 75 mg PO DAILY #30 tablet ISOSORBIDE MONOnitrate [Imdur ER] 60 mg PO QDAY #30 tablet Lisinopril [Zestril TAB] 2.5 mg PO QDAY 30 Days tablet Metoprolol [Lopressor TAB] 25 mg PO BID 30 Days tablet
[2017-07-15 14:26] VITALS: BP 105/67
== END 2017-07-15 16:07 | disposition home or self-care (01) | DRG 282 ==
LOC: ED 08:32 → CATH 08:32 → CC1 08:56 → UNDOADMIN 15:01 → CC1 15:01 → 4A 07-13 17:46
PROVIDERS: ADMIT Internal Medicine; ATTEND Internal Medicine
PROC: 4A023N7 Measurement of Cardiac Sampling and Pressure, Left Heart, Percutaneous Approach (ICD-10-PCS; principal; 2017-07-11)
PROC: B2111ZZ Fluoroscopy of Multiple Coronary Arteries using Low Osmolar Contrast (ICD-10-PCS; 2017-07-11)
PROC: B2151ZZ Fluoroscopy of Left Heart using Low Osmolar Contrast (ICD-10-PCS; 2017-07-11)
DX: I21.4 Non-ST elevation (NSTEMI) myocardial infarction (principal); I10 Essential (primary) hypertension; I16.0 Hypertensive urgency; E86.0 Dehydration; E78.5 Hyperlipidemia, unspecified; I25.10 Atherosclerotic heart disease of native coronary artery without angina pectoris; E66.9 Obesity, unspecified; Z82.49 Family history of ischemic heart disease and other diseases of the circulatory system; Z79.899 Other long term (current) drug therapy; Z68.33 Body mass index [BMI] 33.0-33.9, adult
CPT/HCPCS: 36415; 71010; 80048; 80061; 82550; 82553; 84484; 85025; 85347; 85520; 85610; 85730; 92978; 93005; 93010; 93306; 93458; A9270-GY; C1753; C1769; C1887; C1894; J1644; J1650; J2250; J2270; J3010; J7030; Q9967

== ENCOUNTER 2017-07-18 07:13 | Emergency (ER) | payer OTHER ==
[2017-07-18 08:13] LABS: Basophils % (Auto) 0.4 % (0.0-1.8); Eosinophils % (Auto) 3.1 % (0.0-4.3); Hemoglobin 12.9 gm/dl (10.1-14.3); Mean Corpuscular HGB Conc 33 % (30-34); Mean Corpuscular Hemoglobin 29 pg (28-32); Mean Corpuscular Volume 87 fl (79-97); Platelet Count 246 K/mm3 (140-440); Red Blood Count 4.47 M/mm3 (3.65-5.03); Red Cell Distribution Width 14.4 % (13.2-15.2)
[2017-07-18 08:32] LABS: Anion Gap 21 mmol/L; BUN/Creatinine Ratio 11; Blood Urea Nitrogen 9 mg/dL (7-17); Carbon Dioxide 22 mmol/L (22-30); Chloride 100.4 mmol/L (98-107); Glucose 128 mg/dL (65-100); Potassium 3.9 mmol/L (3.6-5.0); Sodium 139 mmol/L (137-145)
--- NOTE | 2017-07-18 08:32 | XRay Report ---
CHEST 2 VIEWS INDICATION: Chest pain, orthopnea. COMPARISON: 07/11/2017. FINDINGS: PA and lateral chest radiographs demonstrate normal cardiomediastinal silhouette. Clear lungs. Intact bones. CONCLUSION: No acute disease in the chest. Thank you for the opportunity to participate in this patient's care.
[2017-07-18] MEDS ORDERED: NITROSTAT SL PRN (12:21)
[2017-07-18] MEDS ORDERED: SUBLIMAZE IV ONE (12:21)
[2017-07-18] MEDS ORDERED: BABY ASPIRIN PO ONE (12:23)
--- NOTE | 2017-07-18 12:23 | Emergency Department Report ---
ED Chest Pain HPI - General Chief Complaint: Chest Pain Stated Complaint: CP Time Seen by Provider: 07/18/17 12:12 Source: patient, RN notes reviewed Mode of arrival: Ambulatory Limitations: No Limitations - History of Present Illness Initial Comments: This is a 51-year-old female, the patient is previously unknown to this provider , has a past medical history of heart disease, hypertension, recently had a type I n STEMI, had a cardiac catheterization, please see her recent cardiac catheterization report. Patient was discharged with instructions to continue Ranexa, aspirin, Plavix, Lopressor, lisinopril, Imdur. Patient reports taking all of her medications, with the exception of a cholesterol medication, and another medication which "starts with an R, I don't know what is called." Patient presents to the ER complaining of chest pain. The chest pain is right- sided. It radiates down the right upper extremity. There is positive nausea, shortness of breath and diaphoresis. There is no leg pain, there is no leg swelling, patient reports compliance with her other outpatient medications. She reports that her pain is currently a "one." MD Complaint: chest pain -: Gradual Onset: during rest Pain Location: right chest Pain Radiation: RUE Severity: mild Consistency: now resolved Improves With: nothing Worsens With: nothing Context: other (see history of present illness) re: nausea, vomting, diaphoresis, dyspnea Aspirin use within the Past 7 Days: (1) Yes - Related Data On Oral Contraceptives: No Home Medications Medication Instructions Recorded Confirmed Last Taken Atorvastatin Calcium [Lipitor] 80 mg PO QHS 07/18/17 07/18/17 Unknown amLODIPine [Norvasc] 5 mg PO DAILY 07/18/17 07/18/17 Unknown Previous Rx's Medication Instructions Recorded Last Taken Type Aspirin EC [Aspirin Enteric Coated 81 mg PO QDAY #30 tablet. 07/15/17 Rx TAB] Clopidogrel [Plavix] 75 mg PO DAILY #30 tablet 07/15/17 07/18/17 Rx ISOSORBIDE MONOnitrate [Imdur ER] 60 mg PO QDAY #30 tablet 07/15/17 07/18/17 Rx Lisinopril [Zestril TAB] 2.5 mg PO QDAY 30 Days tablet 07/15/17 07/18/17 Rx Metoprolol [Lopressor TAB] 25 mg PO BID 30 Days tablet 07/15/17 07/18/17 Rx Pantoprazole [Protonix] 40 mg PO QDAY #30 tablet 07/18/17 Unknown Rx Allergies Allergy/AdvReac Type Severity Reaction Status Date / Time No Known Allergies Allergy Verified 07/18/17 07:36 Heart Score - HEART Score History: Highly suspicious EKG: Non-specific Age: 45-65 Risk factors: > 3 risk factors or hx of atherosclerotic disease Troponin: < normal limit HEART Score: 6 - Critical Actions Critical Actions: 4-6 pts:12-16.6% risk of adverse cardiac event. Should be admitted ED Review of Systems ROS: Stated complaint: CP Other details as noted in HPI ED Past Medical Hx - Past Medical History Hx Hypertension: Yes Hx Heart Attack/AMI: Yes Hx Congestive Heart Failure: No Hx Diabetes: No Hx Sickle Cell Disease: Yes (trait) Hx Asthma: No Hx COPD: No - Surgical History Past Surgical History?: No Additional Surgical History: Left Shoulder surgery - Social History Smoking Status: Never Smoker Substance Use Type: None - Medications Home Medications: Home Medications Medication Instructions Recorded Confirmed Last Taken Type Aspirin EC [Aspirin Enteric Coated 81 mg PO QDAY #30 tablet. 07/15/1707/18/17 Rx TAB] Clopidogrel [Plavix] 75 mg PO DAILY #30 tablet 07/15/17 07/18/17 07/18/17 Rx ISOSORBIDE MONOnitrate [Imdur ER] 60 mg PO QDAY #30 tablet 07/15/17 07/18/17 Rx Lisinopril [Zestril TAB] 2.5 mg PO QDAY 30 Days tablet 07/15/17 07/18/17 Rx Metoprolol [Lopressor TAB] 25 mg PO BID 30 Days tablet 07/15/17 07/18/17 Rx Atorvastatin Calcium [Lipitor] 80 mg PO QHS 07/18/17 07/18/17 Unknown History Pantoprazole [Protonix] 40 mg PO QDAY #30 tablet 07/18/17 Unknown Rx amLODIPine [Norvasc] 5 mg PO DAILY 07/18/17 07/18/17 Unknown History ED Physical Exam - General Limitations: No Limitations General appearance: alert, in no apparent distress - Head Head exam: Present: atraumatic, normocephalic - Eye Eye exam: Present: normal appearance, EOMI. Absent: nystagmus - ENT ENT exam: Present: normal exam, normal orophraynx, mucous membranes moist, normal external ear exam - Neck Neck exam: Present: normal inspection, full ROM - Respiratory Respiratory exam: Present: normal lung sounds bilaterally. Absent: respiratory distress - Cardiovascular Cardiovascular Exam: Present: regular rate, normal rhythm, normal heart sounds. Absent: systolic murmur, diastolic murmur, rubs, gallop - GI/Abdominal GI/Abdominal exam: Present: soft, normal bowel sounds. Absent: distended, tenderness, guarding, rebound, rigid, pulsatile mass - Extremities Exam Extremities exam: Present: normal inspection, full ROM, normal capillary refill. Absent: tenderness, pedal edema, joint swelling, calf tenderness - Back Exam Back exam: Present: normal inspection, full ROM. Absent: tenderness, CVA tenderness (R), paraspinal tenderness, vertebral tenderness - Neurological Exam Neurological exam: Present: alert, oriented X3, CN II-XII intact, normal gait, other (Extraocular movements intact. Tongue midline. No facial droop. Facial sensation intact to light touch in the V1, V2, V3 distribution bilaterally. 5 and 5 strength in 4 extremities.. Sensation is intact to light touch in 4 extremities.). Absent: motor sensory deficit - Psychiatric Psychiatric exam: Present: normal affect, normal mood - Skin Skin exam: Present: warm, dry, intact, normal color. Absent: rash ED Course Vital Signs 07/18/17 07/18/17 07/18/17 07:37 11:37 13:02 Temperature 98.4 F Pulse Rate 69 75 66 Respiratory 16 Rate Blood Pressure 106/73 Blood Pressure 110/76 [Left] O2 Sat by Pulse 98 97 Oximetry 07/18/17 15:25 Temperature 98 F Pulse Rate 65 Respiratory 20 Rate Blood Pressure Blood Pressure 133/79 [Left] O2 Sat by Pulse 99 Oximetry PETRONA score - Petrona Score Age > 65: (0) No Aspirin use within the Past 7 Days: (0) No 3 or more CAD Risk Factors: (0) No 2 or more Angina events in past 24 hrs: (1) Yes Known CAD with more than 50% Stenosis: (0) No Elevated Cardiac Markers: (1) Yes ST Deviation Greater than 0.5mm: (1) Yes PETRONA Score: 3 ED Medical Decision Making - Lab Data Result diagrams: 07/18/17 07:49 07/18/17 07:49 Vital Signs 07/18/17 07/18/17 07/18/17 07:37 11:37 13:02 Temperature 98.4 F Pulse Rate 69 75 66 Respiratory 16 Rate Blood Pressure 106/73 Blood Pressure 110/76 [Left] O2 Sat by Pulse 98 97 Oximetry Labs 07/18/17 07/18/17 07/18/17 07:49 07:49 10:40 WBC 7.0 RBC 4.47 Hgb 12.9 Hct 39.0 MCV 87 MCH 29 MCHC 33 RDW 14.4 Plt Count 246 Lymph % (Auto) 24.3 Gila % (Auto) 5.4 Eos % (Auto) 3.1 Baso % (Auto) 0.4 Lymph # 1.7 Gila # 0.4 Eos # 0.2 Baso # 0.0 Seg Neutrophils % 66.8 Seg Neutrophils # 4.7 D-Dimer Sodium 139 Potassium 3.9 Chloride 100.4 Carbon Dioxide 22 Anion Gap 21 BUN 9 Creatinine 0.8 Estimated GFR > 60 BUN/Creatinine Ratio 11 Glucose 128 H Calcium 9.0 Troponin T 0.018 0.013 NT-Pro-B Natriuret Pep 129.3 07/18/17 12:54 WBC RBC Hgb Hct MCV MCH MCHC RDW Plt Count Lymph % (Auto) Gila % (Auto) Eos % (Auto) Baso % (Auto) Lymph # Gila # Eos # Baso # Seg Neutrophils % Seg Neutrophils # D-Dimer 209.57 Sodium Potassium Chloride Carbon Dioxide Anion Gap BUN Creatinine Estimated GFR BUN/Creatinine Ratio Glucose Calcium Troponin T NT-Pro-B Natriuret Pep - EKG Data -: EKG Interpreted by Me - EKG Data 07/18/17 13:44 EKG #1 demonstrates normal sinus, 67 bpm, left axis deviation, T-wave inversion V2, V3, V4, abnormal EKG, QTC within normal limits, not morphologically consistent with ST elevation myocardial infarction. When compared to prior EKG from June 2017, nonspecific changes have taken place. EKG #2, 12:27 PM, appears unchanged from EKG earlier on today, high left ventricular voltages noted, however both of these EKGs demonstrate changes but compared to prior EKG from 07/14/2017. - Radiology Data Radiology results: report reviewed, image reviewed X-ray of the chest, interpreted by radiology: No acute disease next - Medical Decision Making Differential diagnosis, including not limited to: Elizabeth syndrome, Prinzmetal' s angina, acute coronary syndrome, GERD, gastritis, pneumonia Assessment and plan: 51-year-old female with chest pain that is typical. Chest pain has resolved, she rates it as a "one" at this time. Low risk by well's criteria, d-dimer negative, troponin negative, EKG with nonspecific changes were compared to prior. Contacted cardiology, Dr. Bazan, he is currently evaluating the patient, and will make further recommendations. Patient will be admitted to the hospital, the case was presents to the Hospital physician, Dr. Maravilla, who accepted the patient as a high risk chest pain and repeat acute coronary syndrome risk stratification. Critical care attestation.: If time is entered above; I have spent that time in minutes in the direct care of this critically ill patient, excluding procedure time. ED Disposition Clinical Impression: Chest pain Disposition: DC-09 OP ADMIT IP TO THIS HOSP Is pt being admited?: Yes Does the pt Need Aspirin: Yes Condition: Good Instructions: Chest Pain (ED) Prescriptions: Pantoprazole [Protonix] 40 mg PO QDAY #30 tablet Referrals: PRIMARY CARE, [Primary Care Provider] - 3-5 Days
--- NOTE | 2017-07-18 13:09 | History and Physical Report ---
History of Present Illness Chief complaint: My chest hurts History of present illness: 51 YO Female with HTN, NSTEMI, CAD on DAPT, Obesity presents to ED for evaluation. Pt seen and evaluated in ED for chest pain. Pt underwent serial cardiac enzymes, ekg, and telemetry monitoring which were negative for acute ischamia, D dimer was normal. Cardiology team consulted in ED. Pt EKG reviewed by Cardiology team. Pt acknowledges noncompliance with medication that was prescribed at previous hospital discharge for coronary vasospasm/chest pain. Pt states that Cardiology team prescribed cheaper medication yesterday, but she has not picked the medication up yet. Pt medically optimzed. Pt discharged home and instructed to f/u with pcp 1wk, and cardiology team as instructed and to resume medication as prescribed by cardiology team. Past History Past Medical History: acute CO, hypertension Past Surgical History: Other (Left shoulder surgery) Social history: single. denies: smoking, alcohol abuse, prescription drug abuse Family history: hypertension Medications and Allergies Allergies Allergy/AdvReac Type Severity Reaction Status Date / Time No Known Allergies Allergy Verified 07/18/17 07:36 Home Medications Medication Instructions Recorded Confirmed Last Taken Type Aspirin EC [Aspirin Enteric Coated 81 mg PO QDAY #30 tablet. 07/15/1707/18/17 Rx TAB] Clopidogrel [Plavix] 75 mg PO DAILY #30 tablet 07/15/17 07/18/17 07/18/17 Rx ISOSORBIDE MONOnitrate [Imdur ER] 60 mg PO QDAY #30 tablet 07/15/17 07/18/17 Rx Lisinopril [Zestril TAB] 2.5 mg PO QDAY 30 Days tablet 07/15/17 07/18/17 Rx Metoprolol [Lopressor TAB] 25 mg PO BID 30 Days tablet 07/15/17 07/18/17 Rx Atorvastatin Calcium [Lipitor] 80 mg PO QHS 07/18/17 07/18/17 Unknown History amLODIPine [Norvasc] 5 mg PO DAILY 07/18/17 07/18/17 Unknown History Active Meds: Active Medications Nitroglycerin (Nitrostat) 0.4 mg SL .Q5MIN PRN PRN Reason: Chest Pain Last Admin: 07/18/17 13:02 Dose: 0.4 mg Review of Systems Constitutional: no weight loss, no weight gain, no fever, no chills Ears, nose, mouth and throat: no ear pain, no ear discharge, no tinnitis, no decreased hearing Breasts: no change in shape, no swelling, no mass Cardiovascular: chest pain, no orthopnea, no palpitations, no rapid/irregular heart beat, no edema, no syncope, no lightheadedness Respiratory: no cough, no cough with sputum, no excessive sputum, no hemoptysis Gastrointestinal: no abdominal pain, no nausea, no vomiting, no diarrhea Genitourinary Female: no pelvic pain, no flank pain, no menorrhagia, no dysuria , no urinary frequency Rectal: no pain, no incontinence, no bleeding Musculoskeletal: no neck stiffness, no neck pain, no shooting arm pain, no arm numbness/tingling, no low back pain Integumentary: no rash, no pruritis, no redness, no sores, no wounds, no jaundice Neurological: no head injury, no transient paralysis, no paralysis, no weakness , no parathesias, no numbness, no tingling Psychiatric: no anxiety, no memory loss, no change in sleep habits, no sleep disturbances, no insomnia, no hypersomnia Endocrine: no cold intolerance, no heat intolerance, no polyphagia, no excessive thirst, no polydipsia, no polyuria Hematologic/Lymphatic: no easy bruising, no easy bleeding Allergic/Immunologic: no urticaria, no allergic rhinitis, no wheezing Exam - Constitutional Vitals: Temp Pulse Resp BP Pulse Ox 98.4 F 66 16 106/73 97 07/18/17 07:37 07/18/17 13:02 07/18/17 11:37 07/18/17 13:02 07/18/17 11:37 General appearance: Present: obese - EENT Eyes: Present: PERRL ENT: hearing intact, clear oral mucosa - Neck Neck: Present: supple, normal ROM - Respiratory Respiratory effort: normal Respiratory: bilateral: CTA - Cardiovascular Heart Sounds: Present: S1 & S2. Absent: rub, click - Extremities Extremities: pulses symmetrical, No edema Peripheral Pulses: within normal limits - Abdominal General gastrointestinal: Present: soft, non-tender, non-distended, normal bowel sounds Female genitourinary: Present: normal - Integumentary Integumentary: Present: clear, warm, dry - Musculoskeletal Musculoskeletal: gait normal, strength equal bilaterally - Psychiatric Psychiatric: appropriate mood/affect, intact judgment & insight - Neurologic Neurologic: CNII-XII intact, moves all extremities Results - Labs CBC & Chem 7: 07/18/17 07:49 07/18/17 07:49 Labs: Abnormal lab results 07/18/17 Range/Units 07:49 Glucose 128 H (65-100) mg/dL Assessment and Plan - Patient Problems (1) Atypical chest pain Current Visit: Yes Status: Acute Plan to address problem: Serial cardiac enzymes, d dimer, telemetry unremarkable for acute ischemia. d/C patient home to f/u with cardiology as outpatient, and to resume medication as perscribed by cardiology team. Pt states that medication is waiting for her at the pharmacy. (2) HTN (hypertension) Current Visit: Yes Status: Acute Plan to address problem: resume current medical management. (3) GERD (gastroesophageal reflux disease) Current Visit: Yes Status: Acute Plan to address problem: ppi therapy
[2017-07-18 15:27] VITALS: BP 133/79
== END 2017-07-18 15:31 | disposition admitted as inpatient to this hospital (09) ==
LOC: ED 07:13
DX: R07.89 Other chest pain (principal); I10 Essential (primary) hypertension; I25.2 Old myocardial infarction
CPT/HCPCS: 36415; 71020; 80048; 83880; 84484; 85025; 85379; 93005; 93010; 96374; 99284; J3010

== ENCOUNTER 2017-09-27 03:24 | Observation (INO) | payer OTHER ==
[2017-09-27] MEDS ORDERED: ASPIRIN PO ONE (03:52)
[2017-09-27] MEDS ORDERED: ASPIRIN ONE (03:54)
[2017-09-27 04:27] LABS: Basophils % (Auto) 0.7 % (0.0-1.8); Eosinophils # (Auto) 0.2 K/mm3 (0.0-0.4); Eosinophils % (Auto) 3.4 % (0.0-4.3); Hematocrit 38.4 % (30.3-42.9); Lymphocytes # (Auto) 1.8 K/mm3 (1.2-5.4); Lymphocytes % (Auto) 32.4 % (13.4-35.0); Mean Corpuscular HGB Conc 34 % (30-34); Mean Corpuscular Hemoglobin 29 pg (28-32); Mean Corpuscular Volume 86 fl (79-97); Monocytes # (Auto) 0.4 K/mm3 (0.0-0.8); Monocytes % (Auto) 7.2 % (0.0-7.3); Platelet Count 234 K/mm3 (140-440); Red Blood Count 4.48 M/mm3 (3.65-5.03); Red Cell Distribution Width 15.1 % (13.2-15.2)
[2017-09-27 04:46] LABS: BUN/Creatinine Ratio 13; Blood Urea Nitrogen 10 mg/dL (7-17); Calcium 9.2 mg/dL (8.4-10.2); Hemolysis Index 1
[2017-09-27] MEDS ORDERED: MORPHINE IV ONE (05:51)
[2017-09-27] MEDS ORDERED: NITROSTAT SL ONE (05:51)
[2017-09-27] MEDS ORDERED: BABY ASPIRIN PO ONE (05:55)
--- NOTE | 2017-09-27 05:55 | Emergency Department Report ---
HPI - General Chief Complaint: Chest Pain Time Seen by Provider: 09/27/17 04:51 - HPI HPI: The patient is a 52-year-old female presents for evaluation of chest pain. The patient has a history of myocardial infarction 3 months ago. The patient reports chest pain for the past one day, constant since onset, pressure-like in quality, midsternal, moderate in severity. The patient denies fever, neck pain, parasthesias, dyspnea, cough, hemoptysis, palpitations, dizziness, syncope, unilateral leg swelling, calf muscle pain. ED Past Medical Hx - Past Medical History Previous Medical History?: Yes Hx Hypertension: Yes Hx Heart Attack/AMI: Yes Hx Congestive Heart Failure: No Hx Diabetes: No Hx Sickle Cell Disease: Yes (trait) Hx Asthma: No Hx COPD: No - Surgical History Past Surgical History?: Yes Additional Surgical History: Left Shoulder surgery, Tubal ligation - Social History Smoking Status: Never Smoker Substance Use Type: None, Non Opiate Pain - Medications Home Medications: Home Medications Medication Instructions Recorded Confirmed Last Taken Type Aspirin EC [Aspirin Enteric Coated 81 mg PO QDAY #30 tablet. 07/15/1707/18/17 Rx TAB] Clopidogrel [Plavix] 75 mg PO DAILY #30 tablet 07/15/17 07/18/17 07/18/17 Rx ISOSORBIDE MONOnitrate [Imdur ER] 60 mg PO QDAY #30 tablet 07/15/17 07/18/17 Rx Lisinopril [Zestril TAB] 2.5 mg PO QDAY 30 Days tablet 07/15/17 07/18/17 Rx Metoprolol [Lopressor TAB] 25 mg PO BID 30 Days tablet 07/15/17 07/18/17 Rx Atorvastatin Calcium [Lipitor] 80 mg PO QHS 07/18/17 07/18/17 Unknown History Pantoprazole [Protonix] 40 mg PO QDAY #30 tablet 07/18/17 Unknown Rx amLODIPine [Norvasc] 5 mg PO DAILY 07/18/17 07/18/17 Unknown History ED Review of Systems ROS: Stated complaint: CHEST PAIN Other details as noted in HPI Constitutional: denies: fever ENT: denies: throat or neck pain Respiratory: denies: cough, shortness of breath Cardiovascular: reports: chest pain Endocrine: denies unexplained weight loss or gain Gastrointestinal: denies: abdominal pain, nausea Genitourinary: denies: dysuria Musculoskeletal: denies: leg swelling Skin: denies: rash Neurological: denies: headache Hematological/Lymphatic: denies: easy bleeding or easy bruising Psych: denies sadness or hopelessness Physical Exam - Physical Exam Vital Signs: Vital Signs 09/27/17 09/27/17 09/27/17 03:29 04:50 05:03 Temperature 98.3 F 98.0 F Pulse Rate 81 80 Respiratory 18 14 Rate Blood Pressure 135/92 O2 Sat by Pulse 99 Oximetry Physical Exam: General: well-nourished, well-developed, no acute distress Head: Normocephalic, atraumatic Eyes: normal sclera ENT: Mucous membranes are pink and moist Neck: trachea midline, neck supple, No neck stiffness, no cervical adenopathy Respiratory: Breath sounds equal bilaterally, no wheezing, rales, or rhonchi Cardio: S1 and S2 present, no murmurs, rubs, gallops, capillary refill is brisk Abdomen: Normoactive bowel sounds, soft abdomen, no rigidity, no guarding or rebound tenderness Chest WALL/Back: No tenderness to palpation of the chest wall, no CVA tenderness with percussion Musc: No pitting edema Skin: No rash Neuro: no facial drooping, normal speech Psych: Normal affect ED Course Vital Signs 09/27/17 09/27/17 09/27/17 03:29 04:50 05:03 Temperature 98.3 F 98.0 F Pulse Rate 81 80 Respiratory 18 14 Rate Blood Pressure 135/92 O2 Sat by Pulse 99 Oximetry ED Medical Decision Making - Lab Data Result diagrams: 09/27/17 03:56 09/27/17 03:56 - Medical Decision Making The patient was seen and examined by myself. The patient is placed on a sheet metal mechanic and continuous pulse ox. On initial evaluation, the patient was found to be in no distress. EKG was negative for findings suggestive of acute cardiac infarct. The patient is given an aspirin and a nitroglycerin tablet. Patient given IV pain medicine. Labs and imaging are obtained. Chest x-ray is negative for pneumothorax, focal consolidation, pulmonary vascular congestion, pleural effusion, or other obvious acute cardiopulmonary disease process. Lab results were non-revealing including negative troponin, WBC, hemoglobin, hematocrit, electrolytes, renal function. The patient was reevaluated and reported that their symptoms were improved. As the patient has chest pain and risk factors for development of acute coronary event, the patient will be admitted for close cardiopulmonary monitoring, serial troponins, and evaluation by cardiology. The physician on-call was contacted. They presented to the emergency department and evaluated the patient. They agreed to admit the patient. The ED admit order was placed. The patient was admitted in guarded condition. Critical care attestation.: If time is entered above; I have spent that time in minutes in the direct care of this critically ill patient, excluding procedure time. ED Disposition Clinical Impression: Acute chest pain Disposition: DC-09 OP ADMIT IP TO THIS HOSP Is pt being admited?: Yes Does the pt Need Aspirin: Yes Condition: Stable Instructions: Chest Pain (ED) Referrals: MARGARETTE MAHONEY MD [Primary Care Provider] - 3-5 Days Time of Disposition: 05:52
--- NOTE | 2017-09-27 06:21 | XRay Report ---
FINAL REPORT EXAM: XR CHEST 1V AP HISTORY: chest pain TECHNIQUE: A portable upright view of the chest was obtained. FINDINGS: The heart size and mediastinum appear normal. The lungs are clear. Pleural fluid is not seen. The bones and soft tissues do not show any acute changes. IMPRESSION: No active chest disease.
[2017-09-27] MEDS ORDERED: TYLENOL PO PRN (06:32)
[2017-09-27] MEDS ORDERED: MILK OF MAGNESIA PO PRN (06:32)
[2017-09-27] MEDS ORDERED: DULCOLAX PR PRN (06:32)
[2017-09-27] MEDS ORDERED: NORCO 5/325 PO PRN (06:32)
[2017-09-27] MEDS ORDERED: ZOFRAN IV PRN (06:32)
--- NOTE | 2017-09-27 06:41 | History and Physical Report ---
History of Present Illness Date of examination: 09/27/17 Chief complaint: retro sternal CP History of present illness: is a 52-year-old AA female presents for evaluation of chest pain. The patient has a history of myocardial infarction 3 months ago. The patient reports chest pain for the past one day, constant since onset, pressure-like in quality, midsternal, moderate in severity, non exertional, lasted about 2-3 min and is localized. she also felt light headed, sweating and had fluttering of the heart. The patient denies fever, neck pain, parasthesias, dyspnea, cough, hemoptysis, syncope, unilateral leg swelling, calf muscle pain. Past History Past Medical History: acute HI (NSTEMI), hypertension, hyperlipidemia Past Surgical History: Other (tubal ligation and left shoulder) Social history: no significant social history Family history: no significant family history Medications and Allergies Allergies Allergy/AdvReac Type Severity Reaction Status Date / Time No Known Allergies Allergy Verified 07/18/17 07:36 Home Medications Medication Instructions Recorded Confirmed Last Taken Type Aspirin EC [Aspirin Enteric Coated 81 mg PO QDAY #30 tablet.dr 07/15/1707/18/17 Rx TAB] Clopidogrel [Plavix] 75 mg PO DAILY #30 tablet 07/15/17 07/18/17 07/18/17 Rx ISOSORBIDE MONOnitrate [Imdur ER] 60 mg PO QDAY #30 tablet 07/15/17 07/18/17 Rx Lisinopril [Zestril TAB] 2.5 mg PO QDAY 30 Days tablet 07/15/17 07/18/17 Rx Metoprolol [Lopressor TAB] 25 mg PO BID 30 Days tablet 07/15/17 07/18/17 Rx Atorvastatin Calcium [Lipitor] 80 mg PO QHS 07/18/17 07/18/17 Unknown History Pantoprazole [Protonix] 40 mg PO QDAY #30 tablet 07/18/17 Unknown Rx amLODIPine [Norvasc] 5 mg PO DAILY 07/18/17 07/18/17 Unknown History Active Meds: Active Medications Acetaminophen (Tylenol) 650 mg PO Q4H PRN PRN Reason: Pain MILD(1-3)/Fever >100.5/BAUM Acetaminophen/Hydrocodone Bitart ([place] 5/325) 1 each PO Q6H PRN PRN Reason: Pain, Moderate (4-6) Amlodipine Besylate (Norvasc) 5 mg PO DAILY MANUEL Aspirin (Halfprin Ec) 81 mg PO QDAY MANUEL Bisacodyl (Dulcolax) 10 mg GA QDAY PRN PRN Reason: Constipation unrelieved by MOM Clopidogrel Bisulfate (Plavix) 75 mg PO DAILY [facility] Heparin Sodium (Porcine) (Heparin) 5,000 unit SUB-Q Q8HR MANUEL Isosorbide Mononitrate (Imdur) 60 mg PO QDAY MANUEL Miscellaneous Medication (Atorvastatin Calcium [Lipitor]) 80 mg PO QHS MANUEL Review of Systems All systems: negative (13 point ROS is unremarkable except as stated in HPI) Exam - Constitutional Vitals: Temp Pulse Resp BP Pulse Ox 98.0 F 70 12 120/79 98 09/27/17 05:03 09/27/17 06:00 09/27/17 06:00 09/27/17 06:00 09/27/17 06:00 General appearance: Present: no acute distress, well-nourished - EENT Eyes: Present: PERRL, EOM intact - Neck Neck: Present: supple, normal ROM. Absent: masses or JVD - Respiratory Respiratory effort: normal Respiratory: bilateral: CTA - Cardiovascular Rhythm: regular Heart Sounds: Present: S1 & S2 - Extremities Extremities: No edema - Abdominal General gastrointestinal: Present: soft, non-tender. Absent: hepatomegaly, splenomegaly - Rectal Rectal Exam: deferred - Integumentary Integumentary: Present: clear - Musculoskeletal Musculoskeletal: strength equal bilaterally - Psychiatric Psychiatric: appropriate mood/affect - Neurologic Neurologic: CNII-XII intact, no focal deficits, moves all extremities Results - Labs CBC & Chem 7: 09/27/17 03:56 09/27/17 03:56 Labs: Abnormal lab results 09/27/17 Range/Units 03:56 Glucose 103 H (65-100) mg/dL Assessment and Plan - Patient Problems (1) Atypical chest pain Current Visit: No Status: Acute Plan to address problem: admit to tele. on observation cardiology consult with [facility] troponin , 1st is neg EKG shows NSR, with LVH and no acute ST or T changes cont. home meds await cariology evaluation she is medically stable (2) GERD (gastroesophageal reflux disease) Current Visit: No Status: Chronic Plan to address problem: cont. PPI (3) HTN (hypertension) Current Visit: No Status: Chronic Plan to address problem: cont. home meds BP is fair
[2017-09-27] MEDS ORDERED: HALFPRIN EC PO SCH (10:00)
[2017-09-27] MEDS ORDERED: PLAVIX PO SCH (10:00)
[2017-09-27] MEDS ORDERED: PROTONIX PO SCH (10:00)
[2017-09-27] MEDS: LOPRESSOR PO SCH ×2 (11:12→22:13)
--- NOTE | 2017-09-27 11:39 | Event Note ---
Date: 09/27/17 She was admitted this morning with chest pain, has significant cardiac history and multiple risk factors Patient seen and examined , medical records reviewed , agree with the current management Cardiology evaluation and stress test. Plan of care discussed with the patient and the family member at the bedside
--- NOTE | 2017-09-27 12:27 | Consultation ---
History of Present Illness Consult date: 09/27/17 Requesting physician: JOYCE QUIJANO Consult reason: chest pain History of present illness: This is a 52-year-old obese hypertension hyperlipidemia known coronary disease in June 2017 had a non-ST elevation SD and found to have a moderate LAD lesion being treated medically patient was last seen with Dr. chau the middle of August and states had no chest pain or shortness of breath. Patient was having some mild ankle swelling also. Patient denies any shortness of breath. Patient denies any fever or chills. Patient last few days not been feeling well with increased angina with exertion with elevated blood pressure with exertion. No syncope no melena no burning micturition or seizure activity. Patient also stating that her throat tightness and swallow Past History Past Medical History: acute SD (NSTEMI), hypertension, hyperlipidemia Past Surgical History: Other (tubal ligation and left shoulder) Social history: no significant social history Family history: no significant family history Medications and Allergies Allergies Allergy/AdvReac Type Severity Reaction Status Date / Time No Known Allergies Allergy Verified 07/18/17 07:36 Home Medications Medication Instructions Recorded Confirmed Last Taken Type Aspirin EC [Aspirin Enteric Coated 81 mg PO QDAY #30 tablet. 07/15/1709/27/17 Rx TAB] Clopidogrel [Plavix] 75 mg PO DAILY #30 tablet 07/15/17 09/27/17 09/27/17 Rx ISOSORBIDE MONOnitrate [Imdur ER] 60 mg PO QDAY #30 tablet 07/15/17 09/27/1710/12 Rx Lisinopril [Zestril TAB] 2.5 mg PO QDAY 30 Days tablet 07/15/17 09/27/17 Rx Metoprolol [Lopressor TAB] 25 mg PO BID 30 Days tablet 07/15/17 09/27/17 Rx Atorvastatin Calcium [Lipitor] 80 mg PO QHS 07/18/17 09/27/17 09/27/17 History amLODIPine [Norvasc] 5 mg PO DAILY 07/18/17 09/27/17 09/27/17 History Active Meds: Active Medications Acetaminophen (Tylenol) 650 mg PO Q4H PRN PRN Reason: Pain MILD(1-3)/Fever >100.5/BAUM Acetaminophen/Hydrocodone Bitart (Amboy 5/325) 1 each PO Q6H PRN PRN Reason: Pain, Moderate (4-6) Aspirin (Halfprin Ec) 81 mg PO QDAY [facility] Last Admin: 09/27/17 11:11 Dose: 81 mg Atorvastatin Calcium (Lipitor) 80 mg PO QHS [facility] Bisacodyl (Dulcolax) 10 mg [place] QDAY PRN PRN Reason: Constipation unrelieved by MOM Clopidogrel Bisulfate (Plavix) 75 mg PO DAILY [facility] Last Admin: 09/27/17 11:11 Dose: 75 mg Heparin Sodium (Porcine) (Heparin) 5,000 unit SUB-Q Q8HR [facility] Hydralazine HCl (Apresoline) 50 mg PO Q8HR [facility] Isosorbide Mononitrate (Imdur) 60 mg PO QDAY [facility] Magnesium Hydroxide (Milk Of Magnesia) 30 ml PO Q4H PRN PRN Reason: Constipation Metoprolol Tartrate (Lopressor) 25 mg PO BID [facility] Last Admin: 09/27/17 11:12 Dose: Not Given Ondansetron HCl (Zofran) 4 mg IV Q8H PRN PRN Reason: N/V unrelieved by Reglan Pantoprazole Sodium (Protonix) 40 mg PO QDAY [facility] Last Admin: 09/27/17 11:11 Dose: 40 mg Review of Systems All systems: negative (hpi) Physical Examination Vital Signs Temp Pulse Resp BP Pulse Ox 98.3 F 81 18 135/92 99 09/27/17 03:29 09/27/17 03:29 09/27/17 03:29 09/27/17 03:29 09/27/17 03:29 General appearance: no acute distress, well-nourished HEENT: Positive: PERRL, Mucus Membranes Moist Neck: Positive: neck supple, trachea midline Cardiac: Positive: Reg Rate and Rhythm, S1/S2. Negative: Audible Murmur Lungs: Positive: clear to auscultation, Normal Breath Sounds Neuro: Positive: Grossly Intact Abdomen: Positive: Soft, Active Bowel Sounds. Negative: Tender, Distended Female genitourinary: deferred Skin: Positive: Clear Incision: Cardiac Cath Site Musculoskeletal: No Pain, Normal Range of Motion Extremities: Present: normal. Absent: edema Results 09/27/17 03:56 09/27/17 03:56 Cardiac Enzymes 09/27/17 09/27/17 09/27/17 Range/Units 03:56 03:56 06:46 WBC 5.6 (4.5-11.0) K/mm3 RBC 4.48 (3.65-5.03) M/mm3 Hgb 13.0 (10.1-14.3) gm/dl Hct 38.4 (30.3-42.9) % MCV 86 (79-97) fl MCH 29 (28-32) pg MCHC 34 (30-34) % RDW 15.1 (13.2-15.2) % Plt Count 234 (140-440) K/mm3 Lymph % (Auto) 32.4 (13.4-35.0) % [place] % (Auto) 7.2 (0.0-7.3) % Eos % (Auto) 3.4 (0.0-4.3) % Baso % (Auto) 0.7 (0.0-1.8) % Lymph # 1.8 (1.2-5.4) K/mm3 [place] # 0.4 (0.0-0.8) K/mm3 Eos # 0.2 (0.0-0.4) K/mm3 Baso # 0.0 (0.0-0.1) K/mm3 Seg Neutrophils % 56.3 (40.0-70.0) % Seg Neutrophils # 3.2 (1.8-7.7) K/mm3 Sodium 141 (137-145) mmol/L Potassium 4.1 (3.6-5.0) mmol/L Chloride 101.9 (98-107) mmol/L Carbon Dioxide 26 (22-30) mmol/L Anion Gap 17 mmol/L BUN 10 (7-17) mg/dL Creatinine 0.8 (0.7-1.2) mg/dL Estimated GFR > 60 ml/min BUN/Creatinine Ratio 13 % Glucose 103 H (65-100) mg/dL Calcium 9.2 (8.4-10.2) mg/dL Troponin T < 0.010 < 0.010 (0.00-0.029) ng/mL 09/27/17 Range/Units 09:28 WBC (4.5-11.0) K/mm3 RBC (3.65-5.03) M/mm3 Hgb (10.1-14.3) gm/dl Hct (30.3-42.9) % MCV (79-97) fl MCH (28-32) pg MCHC (30-34) % RDW (13.2-15.2) % Plt Count (140-440) K/mm3 Lymph % (Auto) (13.4-35.0) % Hernando % (Auto) (0.0-7.3) % Eos % (Auto) (0.0-4.3) % Baso % (Auto) (0.0-1.8) % Lymph # (1.2-5.4) K/mm3 [place] # (0.0-0.8) K/mm3 Eos # (0.0-0.4) K/mm3 Baso # (0.0-0.1) K/mm3 Seg Neutrophils % (40.0-70.0) % Seg Neutrophils # (1.8-7.7) K/mm3 Sodium (137-145) mmol/L Potassium (3.6-5.0) mmol/L Chloride (98-107) mmol/L Carbon Dioxide (22-30) mmol/L Anion Gap mmol/L BUN (7-17) mg/dL Creatinine (0.7-1.2) mg/dL Estimated GFR ml/min BUN/Creatinine Ratio % Glucose (65-100) mg/dL Calcium (8.4-10.2) mg/dL Troponin T < 0.010 (0.00-0.029) ng/mL CBC 09/27/17 Range/Units 03:56 WBC 5.6 (4.5-11.0) K/mm3 RBC 4.48 (3.65-5.03) M/mm3 Hgb 13.0 (10.1-14.3) gm/dl Hct 38.4 (30.3-42.9) % Plt Count 234 (140-440) K/mm3 Lymph # 1.8 (1.2-5.4) K/mm3 [place] # 0.4 (0.0-0.8) K/mm3 Eos # 0.2 (0.0-0.4) K/mm3 Baso # 0.0 (0.0-0.1) K/mm3 Comprehensive Metabolic Panel 09/27/17 Range/Units 03:56 Sodium 141 (137-145) mmol/L Potassium 4.1 (3.6-5.0) mmol/L Chloride 101.9 (98-107) mmol/L Carbon Dioxide 26 (22-30) mmol/L BUN 10 (7-17) mg/dL Creatinine 0.8 (0.7-1.2) mg/dL Glucose 103 H (65-100) mg/dL Calcium 9.2 (8.4-10.2) mg/dL - Imaging and Cardiology Echo: report reviewed (mild LV dysfunction ef 45% no significant regurgitation) Cardiac cath: report reviewed (07/11/2017 left main patent LAD is being followed as proximal 60% negative S circumflex and RCA. Normal function) EKG interpretations - Telemetry EKG Rhythm: Sinus Rhythm (normal sinus rhythm) Assessment and Plan Chest pain or anginal symptoms Obesity Hypertension Hyperlipidemia Coronary disease Recommend in view of patient's questionable throat swelling. Is and ankle swelling. Norvasc and hydralazine 53 times a day continue indoor aspirin Plavix that have patient ambulate [facility] in a.m. ischemic burden
[2017-09-27] MEDS: APRESOLINE PO SCH ×2 (14:21→22:13)
[2017-09-27] MEDS: HEPARIN SUB-Q SCH ×2 (14:22→22:12)
[2017-09-27] MEDS ORDERED: LOPRESSOR PO SCH (20:00)
[2017-09-27] MEDS ORDERED: NON-FORMULARY (Atorvastatin Calcium [Lipitor] 80 MG) PO SCH (22:00)
[2017-09-28] MEDS: HEPARIN SUB-Q SCH (05:01)
[2017-09-28] MEDS: APRESOLINE PO SCH (05:04)
[2017-09-28] MEDS ORDERED: LEXISCAN IV ONE ×2 (08:15→08:23)
[2017-09-28] MEDS ORDERED: NITROSTAT SL ONE ×4 (08:26→15:30)
[2017-09-28] MEDS ORDERED: APRESOLINE PO SCH (10:00)
[2017-09-28] MEDS ORDERED: IMDUR PO SCH (10:00)
[2017-09-28] MEDS ORDERED: NORVASC PO SCH (10:00)
--- NOTE | 2017-09-28 11:09 | Progress Note ---
Assessment and Plan acute coronary syndrome cad htn chol obesity rec: In view of recurrent chest pain with EKG changes suggest acute cornary syndrome with chest pain relieved with nitroglycerin we'll proceed with cardiac catheterization emergently patient Risk benefits expressed understanding Subjective Date of service: 09/28/17 Principal diagnosis: chest pain Interval history: pt this am had chest pain and was chest pain free prior to stress test, prior to imaging had chest pain again and now ekg changes , gave s/l nitro and chest pain is almost resolved Objective Vital Signs Temp Pulse Resp BP Pulse Ox 09/28/17 06:02 58 L 09/28/17 04:54 97.7 F 83 20 109/75 96 09/28/17 00:29 97.7 F 77 20 129/91 97 09/27/17 21:12 98.1 F 76 20 111/75 99 09/27/17 16:32 98.0 F 69 16 106/75 99 09/27/17 12:05 97.7 F 65 18 93/63 98 - Physical Examination General: Other (mild distress with chest pain ) HEENT: Positive: PERRL, Mucus Membranes Moist Neck: Positive: neck supple, trachea midline Cardiac: Positive: Reg Rate and Rhythm Lungs: Positive: clear to auscultation Neuro: Positive: Grossly Intact Abdomen: Positive: Soft, Active Bowel Sounds. Negative: Tender, Distended Skin: Positive: Clear Incision: Cardiac Cath Site Musculoskeletal: No Pain, Normal Range of Motion Extremities: Present: normal. Absent: edema - Imaging and Cardiology Echo: report reviewed (mild LV dysfunction ef 45% no significant regurgitation) Cardiac cath: report reviewed (07/11/2017 left main patent LAD is being followed as proximal 60% negative S circumflex and RCA. Normal function) - Telemetry EKG Rhythm: Sinus Rhythm - EKG Sinus rhythms and dysrhythmias: sinus rhythm (nsr st changes in anterior leads no recoprical changes )
[2017-09-28] MEDS ORDERED: HEPARIN/ 0.45% NACL-25,000 UNIT/500 ML 25,000 UNIT/500 ML BAG ONE (11:14)
[2017-09-28] MEDS ORDERED: NITROGLYCERIN SYRINGE 3 ML ONE (11:40)
[2017-09-28] MEDS ORDERED: CALAN ONE (11:40)
[2017-09-28] MEDS ORDERED: HEPARIN/NS 5000 UNIT/500ML(CATH LAB) 1,000 ML IR ONE (11:40)
[2017-09-28] MEDS ORDERED: XYLOCAINE 2% INFILTRATI ONE (11:40)
[2017-09-28] MEDS ORDERED: NACL 0.9% 500 ML 500 ML ONE (11:41)
[2017-09-28] MEDS ORDERED: VERSED ONE (11:41)
[2017-09-28] MEDS ORDERED: SUBLIMAZE ONE (11:41)
[2017-09-28] MEDS: HEPARIN 10,000 UNITS/10 ML ONE ×2 (11:45→11:57)
[2017-09-28] MEDS ORDERED: NACL 0.9% 1000 ML 1,000 ML IV SCH ×2 (12:00→13:00)
[2017-09-28] MEDS ORDERED: HEPARIN/ 0.45% NACL-25,000 UNIT/500 ML 25,000 UNIT/500 ML BAG IV SCH (12:00)
[2017-09-28] MEDS ORDERED: NACL 0.9% 50 ML ONE (12:10)
[2017-09-28] MEDS ORDERED: TRIDIL DRIP 50MG/250ML 50 MG/250 ML BOTTLE ONE (12:32)
[2017-09-28] MEDS ORDERED: AGGRASTAT DRIP (12.5 MG/250 ML) 12,500 MCG/250 ML BAG IV ONE (12:41)
[2017-09-28] MEDS ORDERED: AGGRASTAT DRIP (12.5 MG/250 ML) 12,500 MCG/250 ML BAG IV SCH (13:00)
--- NOTE | 2017-09-28 13:05 | Event Note ---
Date: 09/28/17 Patient post-rest has had transient ST elevation which was relieved with nitroglycerin being treated as acute coronary syndrome patient had urgent cardiac catheterization which revealed LAD ostial and 95% lesion which was significant with fractional flow reserve had a balloon angioplasty as patient had transient loss of flow patient's Lasix and revealed PETRONA-3 flow in the LAD but now stable 90% ostial LAD patient, not amenable to pci, be on heparin low intensity Aggrastat IV nitroglycerin patient is waiting for bed at [facility] for bypass surgery LE to LAD post radial care
--- NOTE | 2017-09-28 13:54 | Cardiac Catherization Report ---
LEFT HEART CATH/PERCUTANEOUS CORONARY INTERVENTION REPORT CLINICAL INFORMATION: The patient is a 52-year-old female with known history of hypertension, hyperlipidemia, known coronary artery disease, catheterization in June 2017 revealing left main patent, LAD ostial disease around 60% by interventional ultrasound was deemed to be noncritical, circ patent, RCA patent, who has been treated medically with aspirin, Plavix, statin, beta blockers, and nitrates. The patient came to the hospital with chest pain. Enzymes were negative. The patient after Lexiscan infusion was stable, but prior to imaging had chest pain, which showed transient ST elevation, received nitroglycerin and relieved the pain. DESCRIPTION OF PROCEDURE: The patient was brought back to the heart catheterization for emergent heart cath. Moderate sedation under supervision with 0.25 mcg of fentanyl was given. Total sedation time was 50 minutes. START TIME: 11:50 END TIME: 12:40 Procedure was done via the right radial artery, sterile technique, local anesthesia, 6-[place] radial sheath inserted. PROCEDURE FINDINGS: LV gram done in PALAUAN and KWOK view shows normal LV function, EF 55-60%. LVEDP of 26 mmHg. LV is 140/56. Aortic is 138/95. No gradient across the aortic valve. RCA engaged with JR4 catheter is a large dominant vessel, patent for proximally and distally. PDA and PLV are medium-caliber vessels that are patent. Left system engaged with an EBU 3.5 catheter. Left main is large, long, and patent. LAD difficult to ascertain, but appears to be having a 90-95% lesion with PETRONA 3 flow. Circumflex is a large vessel that is patent. OM1 and OM2 are medium-caliber vessels that are patent. Fractional flow reserve of the LAD: 1. Using EBU 3.5 guiding catheter. 2. An FF wire was normalized and passed through and without adenosine, it was 0.5. 3. Removed the FF wire and the patient's LAD closed off. 4. Percutaneous coronary intervention to the LAD using the same EBU 3.5 guiding catheter. 5. Crossed the lesion with a short [place] wire and restore PETRONA 3 flow and then ballooned the ostium with a 2.0 x 12 balloon for 20 seconds at 10 atmospheres. 6. Continued PETRONA 3 flow in the LAD reduced dose to 90%. 7. Removed coronary wire. Multiple angiograms revealed continued PETRONA 3 flow stable 90% ostial lesion. 8. In view of the patient's angulation and unable to truly land the ostium of the LAD, the patient will be transferred for bypass. 9. A 6-[place] guiding catheter taken over a guidewire, 6-[place] radial sheath was discontinued. Radial dressing applied. No hematoma or bleeding. SUMMARY: 1. Significant ostial LAD unamenable for stenting had a pullback of the LAD because of transient flow loss with 2.0 x 12, but FFR was significant 0.5 without adenosine. LAD is a large caliber vessel that is patent. Left main is a large caliber vessel, long and patent. Circumflex is a large caliber vessel that is patent. OM1 and OM2 are patent. RCA large and patent. 2. Normal LV function. 3. The patient will be transferred to [place] for LE to [facility]. We will hold Plavix and continue heparin, Aggrastat, and nitro and the patient is currently chest pain free. The patient will be transferred to ICU. JOB# [id number] BUZZ/CAM
[2017-09-28] MEDS ORDERED: TRIDIL DRIP 50MG/250ML 50 MG/250 ML BOTTLE IV ONE (13:59)
--- NOTE | 2017-09-28 14:34 | Discharge Summary ---
Providers - Providers Date of Admission: 09/27/17 06:32 Date of discharge: 09/28/17 Attending physician: JOYCE QUIJANO 09/27/17 06:32 Consult to Physician [CONS] Routine Consulting Provider: BENTON CHAVEZ Reason For Exam: chest pain Place consult to:: [facility] Notified:: y Comment:: added to list 09/28/17 Consult to Cardiac Rehabilitation [CONS] Routine Reason For Exam: post pci 09/28/17 13:05 Consult to Physician [CONS] Routine Consulting Provider: YOANDY KHAN Reason For Exam: ccu care Primary care physician: MARGARETTE MAHONEY Hospitalization Reason for admission: Retrosternal chest pain Condition: Stable Pertinent studies: Chest x-ray Cardiac catheterization Hospital course: 52-year-old -[place] female patient with significant past medical history of coronary artery disease had non-ST elevation CT in June 2017 found to have moderate LAD lesion being managed 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 The managed with cardiac medications aspirin beta blockers and nitrates statins and subsequently was evaluated by cardiology, advised stress test. Today patient underwent stress test , during the test patient had transient ST elevation, underwent stat cardiac catheterization which revealed LAD ostial and 95% lesion significant with fractional flow reserve had a balloon angioplasty, cardiology advised bypass surgery LE to LAD. and patient is being transferred to [facility]. At the time of transfer, patient is comfortable and denies any chest pain or shortness of breath Vital signs reviewed, Physical examination no new changes Patient is hemodynamically stable with guarded prognosis. Plan of care reviewed with the patient, family member at the bedside and the ICU nurse Discharge diagnosis; --Acute ST elevation CT --History of coronary artery disease --Hypertension --Dyslipidemia --Obesity BMI 32 Disposition: DC/TX-70 ANOTHER TYPE HLTHCARE Time spent for discharge: 33 min Core Measure Documentation - Palliative Care Palliative Care/ Comfort Measures: Not Applicable - Core Measures Any of the following diagnoses?: acute CT - Acute CT Discharge Requirements Aspirin at discharge: Yes RADHA/ARB for LVSD if EF <40%: Not Applicable Beta raheem at discharge: Yes Statin for LDL = or >100 mg/dl on DC: Yes Exam - Constitutional Vitals: Temp Pulse Resp BP Pulse Ox 97.7 F 58 L 18 109/75 96 09/28/17 04:54 09/28/17 06:02 09/28/17 08:10 09/28/17 04:54 09/28/17 04:54 General appearance: Present: no acute distress, well-nourished, obese - EENT Eyes: Present: PERRL, EOM intact - Neck Neck: Present: supple, normal ROM - Respiratory Respiratory effort: normal Respiratory: negative: rales, rhonchi, wheezing - Cardiovascular Rhythm: regular Heart Sounds: Present: S1 & S2 - Extremities Extremities: no ischemia, No edema - Abdominal General gastrointestinal: Present: soft, non-tender, non-distended, normal bowel sounds - Integumentary Integumentary: Present: clear, warm - Musculoskeletal Musculoskeletal: strength equal bilaterally - Psychiatric Psychiatric: appropriate mood/affect, cooperative - Neurologic Neurologic: CNII-XII intact, moves all extremities Plan Activity: other (bedrest) Diet: other (NPO) Additional Instructions: Patient is being transferred to [facility] for coronary artery bypass graft surgery. Follow up with: MARGARETTE MAHONEY MD [Primary Care Provider] - 3-5 Days
[2017-09-28] MEDS ORDERED: MORPHINE IM ONE (15:30)
[2017-09-28 15:33] LABS: Hematocrit 40.8 % (30.3-42.9); Hemoglobin 13.6 gm/dl (10.1-14.3)
[2017-09-28 15:45] LABS: INR 1.01 (0.87-1.13)
--- NOTE | 2017-09-28 16:02 | Progress Note ---
Assessment and Plan Assessment and plan: --Acute ST elevation NE; status post heart Catheterization 90% ostial LAD not amenable to PCI, started on heparin drip Agosta nitroglycerin , advised transfer to [facility] for coronary artery bypass surgery Continue aspirin, Plavix, beta blockers, RADHA inhibitor use, nitrates and statin --History of coronary artery disease; continue aspirin Plavix, nitrates and beta blockers and statins --Hypertension; moderate control continue current antihypertensives --Obesity; BMI 32.9; counseling done advised to modification and exercise as tolerated and weight reduction when medically stable --Dyslipidemia; continue lipid-lowering medications --DVT Prophylaxis; patient on heparin drip Patient will be discharged and transferred to [facility] as soon as transfer is setup. Plan of care discussed with the patient, family members the bedside, ICU nurse Critical care time 32 minutes History Interval history: Patient seen and examined medical records reviewed Initially patient was scheduled for stress test During the test patient had transient ST elevation which was relieved with nitroglycerin ,patient had stat.Cardiac catheterization which revealed LAD ostial and 95% lesion which was significant with fractional flow reserve had a balloon angioplasty ,stable 90% ostial LAD patient, not amenable to pci, patient is placed on heparin, low intensity Aggrastat, IV nitroglycerin patient is waiting for bed at [facility] for bypass surgery LE to LAD post radial care. Patient is transferred to ICU for close observation When I examined the patient, she is comfortable sitting in bed The family member at the bedside Denies chest pain or shortness of breath Vital signs reviewed Hospitalist Physical - Constitutional Vitals: Temp Pulse Resp BP Pulse Ox 97.7 F 102 H 22 138/81 100 09/28/17 04:54 09/28/17 14:41 09/28/17 14:41 09/28/17 14:41 09/28/17 14:41 General appearance: Present: no acute distress, well-nourished, obese - EENT Eyes: Present: PERRL, EOM intact - Neck Neck: Present: supple, normal ROM - Respiratory Respiratory: bilateral: diminished, negative: rales, rhonchi, wheezing - Cardiovascular Rhythm: regular Heart Sounds: Present: S1 & S2 - Extremities Extremities: no ischemia, No edema - Abdominal General gastrointestinal: soft, non-tender, non-distended, normal bowel sounds - Integumentary Integumentary: Present: clear, warm - Psychiatric Psychiatric: appropriate mood/affect, cooperative - Neurologic Neurologic: CNII-XII intact, moves all extremities Results - Labs CBC & Chem 7: 09/28/17 15:18 09/27/17 03:56 Labs: Laboratory Last Values WBC 5.6 K/mm3 (4.5-11.0) 09/27/17 03:56 RBC 4.48 M/mm3 (3.65-5.03) 09/27/17 03:56 Hgb 13.6 gm/dl (10.1-14.3) 09/28/17 15:18 Hct 40.8 % (30.3-42.9) 09/28/17 15:18 MCV 86 fl (79-97) 09/27/17 03:56 MCH 29 pg (28-32) 09/27/17 03:56 MCHC 34 % (30-34) 09/27/17 03:56 RDW 15.1 % (13.2-15.2) 09/27/17 03:56 Plt Count 266 K/mm3 (140-440) 09/28/17 15:18 Lymph % (Auto) 32.4 % (13.4-35.0) 09/27/17 03:56 Warren % (Auto) 7.2 % (0.0-7.3) 09/27/17 03:56 Eos % (Auto) 3.4 % (0.0-4.3) 09/27/17 03:56 Baso % (Auto) 0.7 % (0.0-1.8) 09/27/17 03:56 Lymph # 1.8 K/mm3 (1.2-5.4) 09/27/17 03:56 Warren # 0.4 K/mm3 (0.0-0.8) 09/27/17 03:56 Eos # 0.2 K/mm3 (0.0-0.4) 09/27/17 03:56 Baso # 0.0 K/mm3 (0.0-0.1) 09/27/17 03:56 Seg Neutrophils % 56.3 % (40.0-70.0) 09/27/17 03:56 Seg Neutrophils # 3.2 K/mm3 (1.8-7.7) 09/27/17 03:56 PT 13.8 Sec. (12.2-14.9) 09/28/17 15:18 INR 1.01 (0.87-1.13) 09/28/17 15:18 Sodium 141 mmol/L (137-145) 09/27/17 03:56 Potassium 4.1 mmol/L (3.6-5.0) 09/27/17 03:56 Chloride 101.9 mmol/L (98-107) 09/27/17 03:56 Carbon Dioxide 26 mmol/L (22-30) 09/27/17 03:56 Anion Gap 17 mmol/L 09/27/17 03:56 BUN 10 mg/dL (7-17) 09/27/17 03:56 Creatinine 0.8 mg/dL (0.7-1.2) 09/27/17 03:56 Estimated GFR > 60 ml/min 09/27/17 03:56 BUN/Creatinine Ratio 13 % 09/27/17 03:56 Glucose 103 mg/dL (65-100) H 09/27/17 03:56 POC Glucose 121 (70-105) H 09/28/17 08:28 Calcium 9.2 mg/dL (8.4-10.2) 09/27/17 03:56 Troponin T < 0.010 ng/mL (0.00-0.029) 09/27/17 09:28
[2017-09-28 16:31] LABS: Partial Thromboplastin Time TNR Sec. (24.2-36.6)
[2017-09-30 13:39] VITALS: BP 121/85
== END 2017-09-28 18:20 | disposition other institution (70) ==
LOC: ED 03:24 → 4A 06:32 → UNDODISOB 09:00 → 4A 09:06 → CC1 09-28 12:51
PROVIDERS: ADMIT Internal Medicine; ATTEND Internal Medicine
DX: I21.3 ST elevation (STEMI) myocardial infarction of unspecified site (principal); I25.10 Atherosclerotic heart disease of native coronary artery without angina pectoris; I10 Essential (primary) hypertension; I25.2 Old myocardial infarction; E78.5 Hyperlipidemia, unspecified; E66.9 Obesity, unspecified; E78.00 Pure hypercholesterolemia, unspecified; I24.9 Acute ischemic heart disease, unspecified; K21.9 Gastro-esophageal reflux disease without esophagitis; Z68.32 Body mass index [BMI] 32.0-32.9, adult
CPT/HCPCS: 36415; 71045; 80048; 82962; 84484; 85014; 85018; 85025; 85049; 85347; 85610; 92920; 93005; 93010; 93017; 93458; 93571; 96372; 96374; 99285; A9270; C1725; C1769; C1887; C1894; G0378; J0153; J1644; J2250; J2270; J2785; J3010; J3246; J7040; 78452; A9502; Q9967

== ENCOUNTER 2017-11-15 10:10 | Inpatient (IN) | payer OTHER ==
[2017-11-15] MEDS ORDERED: ASPIRIN PO ONE (10:29)
[2017-11-15 10:55] LABS: Basophils # (Auto) 0.1 K/mm3 (0.0-0.1); Basophils % (Auto) 1.4 % (0.0-1.8); Eosinophils # (Auto) 0.4 K/mm3 (0.0-0.4); Eosinophils % (Auto) 8.6 % (0.0-4.3); Hematocrit 34.3 % (30.3-42.9); Hemoglobin 11.2 gm/dl (10.1-14.3); Lymphocytes # (Auto) 1.3 K/mm3 (1.2-5.4); Lymphocytes % (Auto) 27.3 % (13.4-35.0); Mean Corpuscular HGB Conc 33 % (30-34); Mean Corpuscular Hemoglobin 27 pg (28-32); Mean Corpuscular Volume 81 fl (79-97); Monocytes # (Auto) 0.3 K/mm3 (0.0-0.8); Monocytes % (Auto) 5.9 % (0.0-7.3); Platelet Count 266 K/mm3 (140-440); Red Blood Count 4.24 M/mm3 (3.65-5.03); Red Cell Distribution Width 18.8 % (13.2-15.2)
[2017-11-15 11:03] LABS: BUN/Creatinine Ratio 8; Blood Urea Nitrogen 5 mg/dL (7-17); Calcium 8.9 mg/dL (8.4-10.2); Hemolysis Index 17
--- NOTE | 2017-11-15 20:32 | Emergency Department Report ---
ED Chest Pain HPI - General Chief Complaint: Chest Pain Stated Complaint: CHEST PAIN Time Seen by Provider: 11/15/17 20:31 Source: patient Mode of arrival: Ambulatory Limitations: No Limitations - History of Present Illness Initial Comments: Patient complains of intermittent recurrent chest pain with mild exertion over the past day, as well as shortness of breath and difficulty with laying flat. She describes the pressure as a constriction and tightness with aching, lasting about 10 or 15 minutes, and then relieved with taking her sublingual nitroglycerin. Pain does not radiate, not associated with diaphoresis or nausea or vomiting. She experiences some discomfort with mild exertion, feeling some shortness of breath, and she also has difficulty laying flat. She has coronary artery disease, with a prior CABG 6 weeks ago, and had otherwise been doing well prior to onset of discomfort. She reports that she has been sleeping nightly in a recliner chair, but this has been since her surgery and not associated with her current symptoms. Discomfort is moderate, being 5-6 out of 10, and she is currently not having any discomfort at time of examination MD Complaint: chest pain -: Gradual, days(s) (1) - Related Data Home Medications Medication Instructions Recorded Confirmed Last Taken Atorvastatin Calcium [Lipitor] 80 mg PO QHS 07/18/17 09/27/17 09/27/17 amLODIPine [Norvasc] 5 mg PO DAILY 07/18/17 09/27/17 09/27/17 Previous Rx's Medication Instructions Recorded Last Taken Type Aspirin EC [Aspirin Enteric Coated 81 mg PO QDAY #30 tablet. 07/15/17 Rx TAB] Clopidogrel [Plavix] 75 mg PO DAILY #30 tablet 07/15/17 09/27/17 Rx ISOSORBIDE MONOnitrate [Imdur ER] 60 mg PO QDAY #30 tablet 07/15/17 09/27/17 Rx Lisinopril [Zestril TAB] 2.5 mg PO QDAY 30 Days tablet 07/15/17 09/27/17 Rx Metoprolol [Lopressor TAB] 25 mg PO BID 30 Days tablet 07/15/17 09/27/17 Rx Allergies Allergy/AdvReac Type Severity Reaction Status Date / Time No Known Allergies Allergy Verified 07/18/17 07:36 Heart Score - HEART Score History: Moderately suspicious EKG: Non-specific Age: 45-65 Risk factors: > 3 risk factors or hx of atherosclerotic disease Troponin: < normal limit HEART Score: 5 ED Review of Systems ROS: Stated complaint: CHEST PAIN Other details as noted in HPI Constitutional: denies: chills, diaphoresis, fever Eyes: denies: eye pain, eye discharge, vision change ENT: denies: ear pain, throat pain Respiratory: denies: cough, shortness of breath, wheezing Cardiovascular: as per HPI, chest pain, dyspnea on exertion. denies: palpitations, edema, syncope Endocrine: no symptoms reported Gastrointestinal: denies: abdominal pain, nausea, diarrhea Genitourinary: denies: urgency, dysuria, discharge Musculoskeletal: denies: back pain, joint swelling, arthralgia Skin: denies: rash, lesions Neurological: denies: headache, weakness, paresthesias Psychiatric: denies: anxiety, depression Hematological/Lymphatic: denies: easy bleeding, easy bruising ED Past Medical Hx - Past Medical History Hx Hypertension: Yes Hx Heart Attack/AMI: Yes (CABG, September 2017, [place] June 2017) Hx Congestive Heart Failure: No Hx Diabetes: No Hx Sickle Cell Disease: Yes (trait) Hx Seizures: No Hx Asthma: No Hx COPD: No - Surgical History Hx Open Heart Surgery: Yes (September,) Additional Surgical History: Left Shoulder surgery, Tubal ligation - Social History Smoking Status: Never Smoker Substance Use Type: None - Medications Home Medications: Home Medications Medication Instructions Recorded Confirmed Last Taken Type Aspirin EC [Aspirin Enteric Coated 81 mg PO QDAY #30 tablet. 07/15/1709/27/17 Rx TAB] Clopidogrel [Plavix] 75 mg PO DAILY #30 tablet 07/15/17 09/27/17 09/27/17 Rx ISOSORBIDE MONOnitrate [Imdur ER] 60 mg PO QDAY #30 tablet 07/15/17 09/27/1710/12 Rx Lisinopril [Zestril TAB] 2.5 mg PO QDAY 30 Days tablet 07/15/17 09/27/17 Rx Metoprolol [Lopressor TAB] 25 mg PO BID 30 Days tablet 07/15/17 09/27/17 Rx Atorvastatin Calcium [Lipitor] 80 mg PO QHS 07/18/17 09/27/17 09/27/17 History amLODIPine [Norvasc] 5 mg PO DAILY 07/18/17 09/27/17 09/27/17 History ED Physical Exam - General Limitations: No Limitations General appearance: alert, in no apparent distress - Head Head exam: Present: atraumatic, normocephalic - Eye Eye exam: Present: normal appearance - ENT ENT exam: Present: mucous membranes moist - Neck Neck exam: Present: normal inspection - Respiratory Respiratory exam: Present: normal lung sounds bilaterally. Absent: wheezes, rales, rhonchi - Cardiovascular Cardiovascular Exam: Present: regular rate, normal rhythm. Absent: bradycardia , tachycardia, systolic murmur, diastolic murmur - GI/Abdominal GI/Abdominal exam: Present: soft. Absent: distended, tenderness, guarding, rebound - Rectal Rectal exam: Present: deferred - Neurological Exam Neurological exam: Present: alert, oriented X3, CN II-XII intact. Absent: motor sensory deficit - Psychiatric Psychiatric exam: Present: normal affect, normal mood - Skin Skin exam: Present: warm, dry ED Course Vital Signs 11/15/17 11/15/17 11/15/17 10:27 21:19 21:20 Temperature 98.6 F Pulse Rate 62 74 70 Respiratory 16 11 L 16 Rate Blood Pressure 164/106 O2 Sat by Pulse 99 Oximetry 11/15/17 11/15/17 11/15/17 21:26 21:30 21:36 Temperature Pulse Rate 86 79 81 Respiratory 13 14 14 Rate Blood Pressure 162/115 168/107 168/107 O2 Sat by Pulse 100 100 100 Oximetry 11/15/17 11/15/17 11/15/17 21:40 21:46 21:50 Temperature Pulse Rate 81 75 78 Respiratory 14 10 L 10 L Rate Blood Pressure 168/107 168/107 168/107 O2 Sat by Pulse 100 100 100 Oximetry 11/15/17 11/15/17 11/15/17 21:56 22:00 22:06 Temperature Pulse Rate 76 74 76 Respiratory 12 14 15 Rate Blood Pressure 168/107 166/112 166/112 O2 Sat by Pulse 100 100 100 Oximetry 11/15/17 11/15/17 11/15/17 22:10 22:16 22:20 Temperature Pulse Rate 83 83 84 Respiratory 11 L 14 11 L Rate Blood Pressure 166/112 166/112 166/112 O2 Sat by Pulse 100 100 100 Oximetry 11/15/17 11/15/17 11/15/17 22:26 22:30 22:36 Temperature Pulse Rate 80 80 98 H Respiratory 21 14 15 Rate Blood Pressure 166/112 153/104 153/104 O2 Sat by Pulse 100 100 99 Oximetry 11/15/17 22:40 Temperature Pulse Rate 92 H Respiratory 16 Rate Blood Pressure 153/104 O2 Sat by Pulse 100 Oximetry - Consultations Consultation #1: 11/15/17 21:24 Hospitalist on-call, Dr. Naik consult, discussed patient's findings, with current patient's stability and negative troponins 3, with my recommendation the patient is stable for discharge, and consultation with her for concurrence. She will come to evaluate patient and make her disposition assessment after that. 11/15/17 21:51 PETRONA score - Petrona Score Age > 65: (0) No Aspirin use within the Past 7 Days: (0) No 3 or more CAD Risk Factors: (0) No 2 or more Angina events in past 24 hrs: (1) Yes Known CAD with more than 50% Stenosis: (0) No Elevated Cardiac Markers: (0) No ST Deviation Greater than 0.5mm: (0) No PETRONA Score: 1 ED Medical Decision Making - Lab Data Result diagrams: 11/15/17 10:38 11/15/17 10:38 - EKG Data -: EKG Interpreted by Me EKG shows normal: sinus rhythm, QRS complexes (normal, axis at 34), ST-T waves (nonspecific anterior T-wave flattening, inverted T waves in V1 and V2, without change on repeat) Rate: normal - EKG Data Interpretation: no acute changes, nonspecific ST-T wave rao, other (prior anterior septal myocardial infarction, no acute changes) - Radiology Data Radiology results: report reviewed Stable postoperative chest, with sternal wires noted, but lung alonso are clear , heart size is normal. - Differential Diagnosis myocardial infarction, unstable angina, chest wall pain, Elizabeth syndrome Critical Care Time: No Critical care attestation.: If time is entered above; I have spent that time in minutes in the direct care of this critically ill patient, excluding procedure time. ED Disposition Clinical Impression: Acute chest pain Disposition: OP ADMIT IP TO THIS HOSP Is pt being admited?: Yes Does the pt Need Aspirin: No Condition: Stable Instructions: Chest Pain (ED) Referrals: PRIMARY CARE, [Primary Care Provider] - 3-5 Days Time of Disposition: 22:45
--- NOTE | 2017-11-15 21:25 | XRay Report ---
FINAL REPORT PROCEDURE: XR CHEST 1V AP TECHNIQUE: Chest radiograph anteroposterior view. CPT 35028 HISTORY: chest pain COMPARISON: 09/27/2017 FINDINGS: Heart: Normal. Mediastinum/Vessels: There are multiple sternal wires present. Lungs/Pleural space: Normal. Bony thorax: No acute osseous abnormality. Life support devices: None. IMPRESSION: No acute cardiopulmonary abnormality.
[2017-11-15] MEDS ORDERED: MORPHINE IV PRN (22:45)
[2017-11-15] MEDS ORDERED: ZOFRAN IV PRN (22:45)
[2017-11-15] MEDS ORDERED: SODIUM CHLORIDE FLUSH SYRINGE 10 ML IV PRN (22:45)
--- NOTE | 2017-11-15 22:53 | History and Physical Report ---
History of Present Illness Date of examination: 11/15/17 History of present illness: 52-year-old man with a history of CAD, status post bypass in September, hypertension , hyperlipidemia comes to the emergency room complaining of chest pain in the epigastric area describes as a tightness intermittently over 2 minutes, intensity 5/10, no radiation, relieved with nitroglycerin, worse with activity. She denies nausea, vomiting, , diaphoresis or palpitation. Patient was taken off all antihypertensives, she currently does not know her medications, blood pressure was very elevated upon arrival. She stated that her blood pressure is usually less than 120 systolically Review Of Systems: Constitutional: no weight loss Ears, eyes, nose, mouth and throat: no nasal congestion, no nasal discharge, no sinus pressure, blurry vision, diplopia Neck: No neck pain or rigidity. Cardiovascular: No palpitations Respiratory: No cough Gastrointestinal: No abdominal pain, hematochezia Genitourinary : no dysuria, frequency , hematuria Musculoskeletal: no muscle ache Integumentary: no rash, no pruritis Neurological: no parathesias, focal weakness Endocrine: no cold or heat intolerance, no polyuria or polydipsia Hematologic/Lymphatic: no easy bruising, no easy bleeding, no gland swelling Allergic/Immunologic: no urticaria, no angioedema. PAST MEDICAL HISTORY: CAD, status post bypass in September, hypertension, hyperlipidemia PAST SURGICAL HISTORY: CABG, tubal ligation, left shoulder FAMILY HISTORY: Hypertension SOCIAL HISTORY:Denies alcohol, tobacco, drugs Medications and Allergies Allergies Allergy/AdvReac Type Severity Reaction Status Date / Time No Known Allergies Allergy Verified 07/18/17 07:36 Home Medications Medication Instructions Recorded Confirmed Last Taken Type Aspirin EC [Aspirin Enteric Coated 81 mg PO QDAY #30 tablet. 07/15/1709/27/17 Rx TAB] Clopidogrel [Plavix] 75 mg PO DAILY #30 tablet 07/15/17 09/27/17 09/27/17 Rx ISOSORBIDE MONOnitrate [Imdur ER] 60 mg PO QDAY #30 tablet 07/15/17 09/27/1710/12 Rx Lisinopril [Zestril TAB] 2.5 mg PO QDAY 30 Days tablet 07/15/17 09/27/17 Rx Metoprolol [Lopressor TAB] 25 mg PO BID 30 Days tablet 07/15/17 09/27/17 Rx Atorvastatin Calcium [Lipitor] 80 mg PO QHS 07/18/17 09/27/17 09/27/17 History amLODIPine [Norvasc] 5 mg PO DAILY 07/18/17 09/27/17 09/27/17 History Active Meds: Active Medications Hydralazine HCl (Apresoline) 5 mg IV Q6HR PRN PRN Reason: Hypertension Exam - Physical Exam Narrative exam: Gen. appearance: Patient lying in bed, no apparent distress HEENT: Normocephalic, atraumatic, pupils equally round and reactive to light, extraocular movement intact, and no sclericterus,. No JVD or thyromegaly or nodule,neck supple, no carotid bruit ,mucous membranes moist, no exudate or erythema Heart: S1, S2, regular rate and rhythm Lungs: Clear to auscultation bilaterally, breathing comfortable Abdomen: Positive bowel sounds, nontender, nondistended, no organomegaly Extremity: No edema, cyanosis, clubbing Skin: No rash, nodules, warm, dry Neuro: Oriented 3, cranial nerves II-12 intact, speech is fluent, motor and sensory intact - Constitutional Vitals: Temp Pulse Resp BP Pulse Ox 98.6 F 92 H 16 153/104 100 11/15/17 10:27 11/15/17 22:40 11/15/17 22:40 11/15/17 22:40 11/15/17 22:40 Results - Labs CBC & Chem 7: 11/15/17 10:38 11/15/17 10:38 Labs: Abnormal lab results 11/15/17 11/15/17 Range/Units 10:38 10:38 MCH 27 L (28-32) pg RDW 18.8 H (13.2-15.2) % Eos % (Auto) 8.6 H (0.0-4.3) % BUN 5 L (7-17) mg/dL Creatinine 0.6 L (0.7-1.2) mg/dL Glucose 123 H (65-100) mg/dL - Imaging and Cardiology EKG: image reviewed Chest x-ray: image reviewed Assessment and Plan Assessment Hypertensive urgency Chest pain probably related to #1 Coronary artery disease Hypertension Hyperlipidemia Plan Admit to medicine Start IV hydralazine, first dose now Start aspirin, patient instructed to obtain medications from home Consult cardiology DVT prophylaxis
[2017-11-15] MEDS: APRESOLINE IV PRN (23:23)
[2017-11-16 00:04] LABS: Creatine Kinase MB < 1.0 ng/mL (0.0-4.0)
[2017-11-16] MEDS: APRESOLINE IV PRN (05:39)
[2017-11-16] MEDS ORDERED: DILAUDID IV ONE (06:45)
[2017-11-16] MEDS ORDERED: DILAUDID PO NR (08:00)
[2017-11-16] MEDS ORDERED: DILAUDID IV NR (08:15)
[2017-11-16 08:25] LABS: Basophils % (Auto) 0.7 % (0.0-1.8); Eosinophils # (Auto) 0.2 K/mm3 (0.0-0.4); Eosinophils % (Auto) 2.9 % (0.0-4.3); Lymphocytes % (Auto) 18.5 % (13.4-35.0); Mean Corpuscular HGB Conc 33 % (30-34); Mean Corpuscular Hemoglobin 27 pg (28-32); Mean Corpuscular Volume 80 fl (79-97); Monocytes # (Auto) 0.3 K/mm3 (0.0-0.8); Monocytes % (Auto) 5.3 % (0.0-7.3); Platelet Count 280 K/mm3 (140-440); Red Blood Count 4.51 M/mm3 (3.65-5.03); Red Cell Distribution Width 18.5 % (13.2-15.2)
[2017-11-16 08:39] LABS: BUN/Creatinine Ratio 10; Blood Urea Nitrogen 7 mg/dL (7-17); Calcium 9.8 mg/dL (8.4-10.2); Hemolysis Index 3
[2017-11-16 08:42] LABS: Creatine Kinase MB 1.1 ng/mL (0.0-4.0)
[2017-11-16] MEDS ORDERED: LOPRESSOR PO SCH (10:00)
[2017-11-16] MEDS: HALFPRIN EC PO SCH (10:34)
[2017-11-16] MEDS: PLAVIX PO SCH (10:35)
[2017-11-16] MEDS: LOVENOX SUB-Q SCH ×2 (10:37→10:54)
[2017-11-16] MEDS: ZESTRIL PO SCH ×2 (10:37→10:51)
[2017-11-16] MEDS: SODIUM CHLORIDE FLUSH SYRINGE 10 ML IV SCH ×2 (10:38→22:52)
--- NOTE | 2017-11-16 12:08 | Consultation ---
History of Present Illness Consult date: 11/16/17 Requesting physician: JACEY AMAYA Consult reason: chest pain History of present illness: This is a 52-year-old -[place] female with hypertension hyperlipidemia known coronary disease as in September a significant ostial LAD disease with patent left main circumflex and RCA with normal LV function was transferred to [facility] for single-vessel bypass LE to LAD patient has been chest pain-free saw CT surgery on November 11 and was feeling fine. Patient says since Friday been having chest pain with exertion similar to what she had prior. Patient is also had elevated blood pressure. Patient states compliance with medication. Patient has no nausea. But shortness of breath and chest pressure with exertion with no syncope or palpitations patient had elevated blood pressure Past History Past Medical History: CAD, hypertension, hyperlipidemia Past Surgical History: CABG (single vessel LE to LAD) Social history: no significant social history Medications and Allergies Allergies Allergy/AdvReac Type Severity Reaction Status Date / Time No Known Allergies Allergy Verified 07/18/17 07:36 Home Medications Medication Instructions Recorded Confirmed Last Taken Type Aspirin EC [Aspirin Enteric Coated 81 mg PO QDAY #30 tablet. 07/15/1711/15/17 Rx TAB] Clopidogrel [Plavix] 75 mg PO DAILY #30 tablet 07/15/17 11/16/17 11/14/17 Rx Metoprolol [Lopressor TAB] 25 mg PO BID 30 Days tablet 07/15/17 11/16/17 Rx Atorvastatin Calcium [Lipitor] 80 mg PO QHS 07/18/17 11/16/17 11/14/17 History Docusate Sodium 100 mg PO PRN PRN 11/16/17 11/16/17 Unknown History Active Meds: Active Medications Acetaminophen (Tylenol) 650 mg PO Q4H PRN PRN Reason: Pain MILD(1-3)/Fever >100.5/ABUM Aspirin (Halfprin Ec) 81 mg PO QDAY [facility] Last Admin: 11/16/17 10:34 Dose: 81 mg Atorvastatin Calcium (Lipitor) 80 mg PO QHS [facility] Clopidogrel Bisulfate (Plavix) 75 mg PO DAILY [facility] Last Admin: 11/16/17 10:35 Dose: 75 mg Enoxaparin Sodium (Lovenox) 40 mg SUB-Q QDAY [facility] Last Admin: 11/16/17 10:54 Dose: Not Given Hydralazine HCl (Apresoline) 5 mg IV Q6H PRN PRN Reason: Hypertension Last Admin: 11/16/17 05:39 Dose: 5 mg Isosorbide Mononitrate (Imdur) 30 mg PO QDAY [facility] Lisinopril (Zestril) 2.5 mg PO QDAY [facility] Last Admin: 11/16/17 10:51 Dose: Not Given Metoprolol Tartrate (Lopressor) 50 mg PO TID [facility] Morphine Sulfate (Morphine) 2 mg IV Q4H PRN PRN Reason: Pain, Moderate (4-6) Last Admin: 11/16/17 05:24 Dose: 2 mg Ondansetron HCl (Zofran) 4 mg IV Q8H PRN PRN Reason: Nausea And Vomiting Sodium Chloride (Sodium Chloride Flush Syringe 10 Ml) 10 ml IV BID [facility] Last Admin: 11/16/17 10:38 Dose: 10 ml Sodium Chloride (Sodium Chloride Flush Syringe 10 Ml) 10 ml IV PRN PRN PRN Reason: LINE FLUSH Review of Systems All systems: negative (HPI) Physical Examination Vital Signs Temp Pulse Resp BP Pulse Ox 98.6 F 62 16 164/106 99 11/15/17 10:27 11/15/17 10:27 11/15/17 10:27 11/15/17 10:27 11/15/17 10:27 General appearance: no acute distress, well-nourished HEENT: Positive: PERRL, Mucus Membranes Moist Neck: Positive: neck supple, trachea midline Cardiac: Positive: Reg Rate and Rhythm, S1/S2. Negative: Audible Murmur Lungs: Positive: clear to auscultation, Normal Breath Sounds Neuro: Positive: Grossly Intact Abdomen: Positive: Soft, Active Bowel Sounds. Negative: Tender, Distended Female genitourinary: deferred Skin: Positive: Clear Incision: Cardiac Cath Site Musculoskeletal: No Pain, Normal Range of Motion Extremities: Present: normal. Absent: edema Results 11/16/17 08:00 11/16/17 08:00 Cardiac Enzymes 11/15/17 11/15/17 11/15/17 Range/Units 10:38 10:38 13:48 WBC 4.7 (4.5-11.0) K/mm3 RBC 4.24 (3.65-5.03) M/mm3 Hgb 11.2 (10.1-14.3) gm/dl Hct 34.3 (30.3-42.9) % MCV 81 (79-97) fl MCH 27 L (28-32) pg MCHC 33 (30-34) % RDW 18.8 H (13.2-15.2) % Plt Count 266 (140-440) K/mm3 Lymph % (Auto) 27.3 (13.4-35.0) % Potter % (Auto) 5.9 (0.0-7.3) % Eos % (Auto) 8.6 H (0.0-4.3) % Baso % (Auto) 1.4 (0.0-1.8) % Lymph # 1.3 (1.2-5.4) K/mm3 Potter # 0.3 (0.0-0.8) K/mm3 Eos # 0.4 (0.0-0.4) K/mm3 Baso # 0.1 (0.0-0.1) K/mm3 Seg Neutrophils % 56.8 (40.0-70.0) % Seg Neutrophils # 2.6 (1.8-7.7) K/mm3 Sodium 141 (137-145) mmol/L Potassium 4.3 (3.6-5.0) mmol/L Chloride 103.3 (98-107) mmol/L Carbon Dioxide 25 (22-30) mmol/L Anion Gap 17 mmol/L BUN 5 L (7-17) mg/dL Creatinine 0.6 L (0.7-1.2) mg/dL Estimated GFR > 60 ml/min BUN/Creatinine Ratio 8 % Glucose 123 H (65-100) mg/dL Calcium 8.9 (8.4-10.2) mg/dL Total Creatine Kinase (30-135) units/L CK-MB (CK-2) (0.0-4.0) ng/mL CK-MB (CK-2) Rel Index (0-4) Troponin T < 0.010 < 0.010 (0.00-0.029) ng/mL 11/15/17 11/15/17 11/16/17 Range/Units 16:27 23:21 08:00 WBC 5.7 (4.5-11.0) K/mm3 RBC 4.51 (3.65-5.03) M/mm3 Hgb 12.0 (10.1-14.3) gm/dl Hct 36.0 (30.3-42.9) % MCV 80 (79-97) fl MCH 27 L (28-32) pg MCHC 33 (30-34) % RDW 18.5 H (13.2-15.2) % Plt Count 280 (140-440) K/mm3 Lymph % (Auto) 18.5 (13.4-35.0) % Potter % (Auto) 5.3 (0.0-7.3) % Eos % (Auto) 2.9 (0.0-4.3) % Baso % (Auto) 0.7 (0.0-1.8) % Lymph # 1.0 L (1.2-5.4) K/mm3 Potter # 0.3 (0.0-0.8) K/mm3 Eos # 0.2 (0.0-0.4) K/mm3 Baso # 0.0 (0.0-0.1) K/mm3 Seg Neutrophils % 72.6 H (40.0-70.0) % Seg Neutrophils # 4.1 (1.8-7.7) K/mm3 Sodium (137-145) mmol/L Potassium (3.6-5.0) mmol/L Chloride (98-107) mmol/L Carbon Dioxide (22-30) mmol/L Anion Gap mmol/L BUN (7-17) mg/dL Creatinine (0.7-1.2) mg/dL Estimated GFR ml/min BUN/Creatinine Ratio % Glucose (65-100) mg/dL Calcium (8.4-10.2) mg/dL Total Creatine Kinase 70 (30-135) units/L CK-MB (CK-2) < 1.0 (0.0-4.0) ng/mL CK-MB (CK-2) Rel Index 1.4 (0-4) Troponin T < 0.010 < 0.010 (0.00-0.029) ng/mL 11/16/17 11/16/17 Range/Units 08:00 08:00 WBC (4.5-11.0) K/mm3 RBC (3.65-5.03) M/mm3 Hgb (10.1-14.3) gm/dl Hct (30.3-42.9) % MCV (79-97) fl MCH (28-32) pg MCHC (30-34) % RDW (13.2-15.2) % Plt Count (140-440) K/mm3 Lymph % (Auto) (13.4-35.0) % Potter % (Auto) (0.0-7.3) % Eos % (Auto) (0.0-4.3) % Baso % (Auto) (0.0-1.8) % Lymph # (1.2-5.4) K/mm3 Potter # (0.0-0.8) K/mm3 Eos # (0.0-0.4) K/mm3 Baso # (0.0-0.1) K/mm3 Seg Neutrophils % (40.0-70.0) % Seg Neutrophils # (1.8-7.7) K/mm3 Sodium 140 (137-145) mmol/L Potassium 4.0 (3.6-5.0) mmol/L Chloride 100.6 (98-107) mmol/L Carbon Dioxide 24 (22-30) mmol/L Anion Gap 19 mmol/L BUN 7 (7-17) mg/dL Creatinine 0.7 (0.7-1.2) mg/dL Estimated GFR > 60 ml/min BUN/Creatinine Ratio 10 % Glucose 142 H (65-100) mg/dL Calcium 9.8 (8.4-10.2) mg/dL Total Creatine Kinase 64 (30-135) units/L CK-MB (CK-2) 1.1 (0.0-4.0) ng/mL CK-MB (CK-2) Rel Index 1.7 (0-4) Troponin T < 0.010 (0.00-0.029) ng/mL CBC 11/16/17 Range/Units 08:00 WBC 5.7 (4.5-11.0) K/mm3 RBC 4.51 (3.65-5.03) M/mm3 Hgb 12.0 (10.1-14.3) gm/dl Hct 36.0 (30.3-42.9) % Plt Count 280 (140-440) K/mm3 Lymph # 1.0 L (1.2-5.4) K/mm3 Potter # 0.3 (0.0-0.8) K/mm3 Eos # 0.2 (0.0-0.4) K/mm3 Baso # 0.0 (0.0-0.1) K/mm3 Comprehensive Metabolic Panel 11/16/17 Range/Units 08:00 Sodium 140 (137-145) mmol/L Potassium 4.0 (3.6-5.0) mmol/L Chloride 100.6 (98-107) mmol/L Carbon Dioxide 24 (22-30) mmol/L BUN 7 (7-17) mg/dL Creatinine 0.7 (0.7-1.2) mg/dL Glucose 142 H (65-100) mg/dL Calcium 9.8 (8.4-10.2) mg/dL - Imaging and Cardiology Echo: report reviewed (10/02/2017 normal LV function no significant regurgitations ) Cardiac cath: report reviewed (09/30/2017 left main large pain LAD ostial 95% circumflex patent RCA. Patient was sent for bypass LE to LAD) EKG interpretations - Telemetry EKG Rhythm: Sinus Rhythm (normal sinus rhythm and T wave biphasic in V1 and V2) Assessment and Plan Chest pain IN ruled out Anginal effort Elevated blood pressure Hypertension Hyperlipidemia Coronary disease status post LE to LAD in september of 2017 Recommend in view of negative cardiac enzymes will increase beta raheem to 50 mg 3 times a day continue aspirin Plavix that and add Imdur and will monitor symptomology
[2017-11-16] MEDS: IMDUR PO SCH (13:05)
[2017-11-16] MEDS: LOPRESSOR PO SCH ×3 (13:06→20:30)
--- NOTE | 2017-11-16 16:53 | Progress Note ---
Assessment and Plan Assessment and plan: 52F w pmh of cad who pw chest pain Hypertensive urgency Chest pain probably related to untreated gerd GERD Coronary artery disease Hypertension Hyperlipidemia Plan optimize bp meds added ppi and 2 doses of iv pepcid cardiology input appreciated, recent cath in september 2017 and now normal stress test; add imdur and increase metoprolol dose continue the rest of her home meds History Interval history: 52F with hx of cad who is still co of chest pain has burning in her chest and acidic relux, also a lot of belching no sob, no palpitations, no le edema, no fevers Hospitalist Physical - Constitutional Vitals: Temp Pulse Resp BP Pulse Ox 98.4 F 117 H 18 145/104 100 11/16/17 04:26 11/16/17 13:45 11/16/17 08:51 11/16/17 05:39 11/16/17 04:26 General appearance: Present: no acute distress, well-nourished - EENT Eyes: Present: PERRL ENT: hearing intact - Neck Neck: Present: supple - Respiratory Respiratory effort: normal Respiratory: bilateral: CTA - Cardiovascular Rhythm: regular Heart Sounds: Present: S1 & S2 - Extremities Extremities: no ischemia Peripheral Pulses: within normal limits - Abdominal General gastrointestinal: soft, non-tender, normal bowel sounds - Integumentary Integumentary: Present: clear, warm, dry - Psychiatric Psychiatric: appropriate mood/affect, intact judgment & insight - Neurologic Neurologic: CNII-XII intact, moves all extremities Results - Labs CBC & Chem 7: 11/16/17 08:00 11/16/17 08:00 Labs: Laboratory Last Values WBC 5.7 K/mm3 (4.5-11.0) 11/16/17 08:00 RBC 4.51 M/mm3 (3.65-5.03) 11/16/17 08:00 Hgb 12.0 gm/dl (10.1-14.3) 11/16/17 08:00 Hct 36.0 % (30.3-42.9) 11/16/17 08:00 MCV 80 fl (79-97) 11/16/17 08:00 MCH 27 pg (28-32) L 11/16/17 08:00 MCHC 33 % (30-34) 11/16/17 08:00 RDW 18.5 % (13.2-15.2) H 11/16/17 08:00 Plt Count 280 K/mm3 (140-440) 11/16/17 08:00 Lymph % (Auto) 18.5 % (13.4-35.0) 11/16/17 08:00 [place] % (Auto) 5.3 % (0.0-7.3) 11/16/17 08:00 Eos % (Auto) 2.9 % (0.0-4.3) 11/16/17 08:00 Baso % (Auto) 0.7 % (0.0-1.8) 11/16/17 08:00 Lymph # 1.0 K/mm3 (1.2-5.4) L 11/16/17 08:00 [place] # 0.3 K/mm3 (0.0-0.8) 11/16/17 08:00 Eos # 0.2 K/mm3 (0.0-0.4) 11/16/17 08:00 Baso # 0.0 K/mm3 (0.0-0.1) 11/16/17 08:00 Seg Neutrophils % 72.6 % (40.0-70.0) H 11/16/17 08:00 Seg Neutrophils # 4.1 K/mm3 (1.8-7.7) 11/16/17 08:00 Sodium 140 mmol/L (137-145) 11/16/17 08:00 Potassium 4.0 mmol/L (3.6-5.0) 11/16/17 08:00 Chloride 100.6 mmol/L (98-107) 11/16/17 08:00 Carbon Dioxide 24 mmol/L (22-30) 11/16/17 08:00 Anion Gap 19 mmol/L 11/16/17 08:00 BUN 7 mg/dL (7-17) 11/16/17 08:00 Creatinine 0.7 mg/dL (0.7-1.2) 11/16/17 08:00 Estimated GFR > 60 ml/min 11/16/17 08:00 BUN/Creatinine Ratio 10 % 11/16/17 08:00 Glucose 142 mg/dL (65-100) H 11/16/17 08:00 Calcium 9.8 mg/dL (8.4-10.2) 11/16/17 08:00 Total Creatine Kinase 64 units/L (30-135) 11/16/17 08:00 CK-MB (CK-2) 1.1 ng/mL (0.0-4.0) 11/16/17 08:00 CK-MB (CK-2) Rel Index 1.7 (0-4) 11/16/17 08:00 Troponin T < 0.010 ng/mL (0.00-0.029) 11/16/17 08:00
[2017-11-16] MEDS: PROTONIX PO SCH (20:30)
[2017-11-16] MEDS: PEPCID IV SCH (22:52)
[2017-11-16] MEDS: TYLENOL PO PRN (22:53)
[2017-11-17] MEDS: PROTONIX PO SCH (09:53)
[2017-11-17] MEDS: LOVENOX SUB-Q SCH (09:53)
[2017-11-17] MEDS: IMDUR PO SCH (09:53)
[2017-11-17] MEDS: HALFPRIN EC PO SCH (09:53)
[2017-11-17] MEDS: PLAVIX PO SCH (09:53)
[2017-11-17] MEDS: PEPCID IV SCH (09:54)
[2017-11-17] MEDS: SODIUM CHLORIDE FLUSH SYRINGE 10 ML IV SCH (09:54)
[2017-11-17] MEDS: ZESTRIL PO SCH (09:54)
[2017-11-17] MEDS: LOPRESSOR PO SCH ×2 (09:54→15:19)
[2017-11-17] MEDS: TYLENOL PO PRN (10:03)
--- NOTE | 2017-11-17 11:35 | Progress Note ---
Assessment and Plan Assessment: Atypical chest pain - AMI ruled out CAD s/p LE to LAD in 09/2017 Accelerated HTN - improved Hyperlipidemia Plan: Pt reports resolution of chest pain this morning. Can consider further ischemic evaluation as OP if chest pain reoccurs. Currently stable cardiac status. Pt may discharge home from cardiology standpoint. Follow up in our [place] office with Dr. Mitchell on 11/26/3017 @ 1:30PM. The patient has been seen in conjunction with Dr. JS Bazan who agrees with the assessment and plan of care. Subjective Date of service: 11/17/17 Principal diagnosis: chest pain Interval history: Pt resting comfortably in bed, states her chest pain is improved and she feels ready to go home. Objective Vital Signs - 12hr 11/16/17 11/17/17 11/17/17 23:56 04:52 06:22 Temperature 98.2 F 97.7 F Pulse Rate 76 82 92 H Respiratory 20 20 Rate Blood Pressure Blood Pressure 115/75 121/77 [Left] O2 Sat by Pulse 99 98 Oximetry 11/17/17 11/17/17 07:53 09:53 Temperature 98.1 F Pulse Rate 86 86 Respiratory 18 Rate Blood Pressure 118/87 118/87 Blood Pressure [Left] O2 Sat by Pulse 94 Oximetry - Physical Examination General: No Apparent Distress HEENT: Positive: PERRL, Mucus Membranes Moist Neck: Positive: neck supple, trachea midline Cardiac: Positive: Reg Rate and Rhythm, S1/S2 Neuro: Positive: Grossly Intact Abdomen: Positive: Soft, Active Bowel Sounds. Negative: Tender, Distended Skin: Positive: Clear, Other (sternotomy scar) Incision: Cardiac Cath Site Musculoskeletal: No Pain, Normal Range of Motion Extremities: Present: normal. Absent: edema - Imaging and Cardiology EKG: image reviewed Echo: report reviewed (10/02/2017 normal LV function no significant regurgitations ) Cardiac cath: report reviewed (09/30/2017 left main large pain LAD ostial 95% circumflex patent RCA. Patient was sent for bypass LE to LAD) - Telemetry EKG Rhythm: Sinus Rhythm
--- NOTE | 2017-11-17 15:57 | Discharge Summary ---
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 Hospitalization Condition: Stable Hospital course: Assessment and Plan Assessment and plan: 52F w pmh of cad who pw chest pain Hypertensive urgency-resolved Chest pain probably related to untreated gerd--Stress test neg GERD Coronary artery disease Hypertension Hyperlipidemia Plan optimize bp meds added ppi and 2 doses of iv pepcid cardiology input appreciated, recent cath in september 2017 and now normal stress test normal; added imdur and increase metoprolol dose continue the rest of her home meds Disposition: DC-01 TO HOME OR SELFCARE Core Measure Documentation - Palliative Care Palliative Care/ Comfort Measures: Not Applicable - Core Measures Any of the following diagnoses?: none Exam - Constitutional Vitals: Temp Pulse Resp BP Pulse Ox 97.7 F 80 18 114/71 91 11/17/17 11:29 11/17/17 11:29 11/17/17 11:29 11/17/17 11:29 11/17/17 11:29 General appearance: Present: no acute distress, well-nourished - EENT Eyes: Present: PERRL ENT: hearing intact, clear oral mucosa - Neck Neck: Present: supple, normal ROM - Respiratory Respiratory effort: normal Respiratory: bilateral: CTA - Cardiovascular Heart rate: 78 Rhythm: regular Heart Sounds: Present: S1 & S2. Absent: rub, click - Extremities Extremities: no ischemia, pulses intact, pulses symmetrical, No edema Peripheral Pulses: within normal limits - Abdominal General gastrointestinal: Present: soft, non-tender, non-distended, normal bowel sounds Female genitourinary: Present: normal - Rectal Rectal Exam: deferred - Integumentary Integumentary: Present: clear, warm, dry - Musculoskeletal Musculoskeletal: gait normal, strength equal bilaterally - Psychiatric Psychiatric: appropriate mood/affect, intact judgment & insight - Neurologic Neurologic: CNII-XII intact, moves all extremities - Allied Health Allied health notes reviewed: nursing, case management Plan Activity: no restrictions Diet: low fat, low cholesterol, low salt Follow up with: PRIMARY CARE, [Primary Care Provider] - 3-5 Days Forms: Work/School Release Form
[2017-11-17 16:22] VITALS: BP 113/78
== END 2017-11-17 18:30 | disposition home or self-care (01) | DRG 392 ==
LOC: ED 10:10 → 4A 22:45
PROVIDERS: ADMIT Internal Medicine; ATTEND Internal Medicine
DX: K21.9 Gastro-esophageal reflux disease without esophagitis (principal); I16.0 Hypertensive urgency; I25.10 Atherosclerotic heart disease of native coronary artery without angina pectoris; D57.1 Sickle-cell disease without crisis; I10 Essential (primary) hypertension; E78.5 Hyperlipidemia, unspecified; Z95.1 Presence of aortocoronary bypass graft; Z79.899 Other long term (current) drug therapy; Z79.82 Long term (current) use of aspirin; I25.2 Old myocardial infarction; Z98.51 Tubal ligation status; Z82.49 Family history of ischemic heart disease and other diseases of the circulatory system
CPT/HCPCS: 36415; 71045; 80048; 82550; 82553; 84484; 85025; 93005; 93010; A9270-GY; J0360; J1170; J1650; J2270

== ENCOUNTER 2018-12-07 16:23 | Inpatient (IN) | payer SELFPAY ==
[2018-12-07] MEDS ORDERED: ASPIRIN PO ONE (16:36)
[2018-12-07 16:54] LABS: Basophils % (Auto) 0.7 % (0.0-1.8); Eosinophils # (Auto) 0.2 K/mm3 (0.0-0.4); Eosinophils % (Auto) 4.4 % (0.0-4.3); Hematocrit 33.7 % (30.3-42.9); Hemoglobin 11.6 gm/dl (10.1-14.3); Lymphocytes # (Auto) 1.5 K/mm3 (1.2-5.4); Mean Corpuscular HGB Conc 35 % (30-34); Mean Corpuscular Volume 90 fl (79-97); Monocytes # (Auto) 0.3 K/mm3 (0.0-0.8); Monocytes % (Auto) 6.7 % (0.0-7.3); Platelet Count 213 K/mm3 (140-440); Red Blood Count 3.77 M/mm3 (3.65-5.03); Red Cell Distribution Width 13.8 % (13.2-15.2)
[2018-12-07 17:08] LABS: BUN/Creatinine Ratio 13; Blood Urea Nitrogen 14 mg/dL (7-17); Calcium 9.2 mg/dL (8.4-10.2); Hemolysis Index 1
--- NOTE | 2018-12-07 19:09 | XRay Report ---
PROCEDURE: XR CHEST 1V AP TECHNIQUE: Single AP chest HISTORY: Chest Pain COMPARISONS: Comparison is dated November 15, 2018 FINDINGS: Cardiac and mediastinal contours are unremarkable. No focal pulmonary infiltrate identified. No pleur al fluid collection seen. Pulmonary vasculature is unremarkable. Sternotomy wires are noted. IMPRESSION: No acute abnormality identified in the chest. This document is electronically signed by Polo García MD., Dec 07 2018 07:07:32 PM ET
[2018-12-07] MEDS ORDERED: LASIX IV ONE (22:54)
--- NOTE | 2018-12-07 22:59 | Emergency Department Report ---
HPI - General Chief Complaint: Dyspnea/Respdistress Time Seen by Provider: 12/07/18 22:45 - HPI HPI: Room 8 Patient's 53-year-old female presenting with chief complaint lower extremity edema and dyspnea on exertion. The patient states for the past 5 days she's noticed worsening swelling to bilateral lower extremities. Patient denies chest pain but admits to dyspnea on exertion and swelling in her hands. The patient states she called her registry rn's nurse who told her to elevate her feet which she did. The patient states however work swelling began to increase prompting her to come to the ED. Location: [See above] Duration: 5 days Quality: Shortness of Breath Severity: Moderate Modifying factors: [see above] Context: [see above] Mode of transportation: [not driving] ED Past Medical Hx - Past Medical History Previous Medical History?: Yes Hx Hypertension: Yes Hx Heart Attack/AMI: Yes (CABG, September 2017, OR June 2017) Hx Sickle Cell Disease: Yes (trait) - Surgical History Past Surgical History?: Yes Hx Open Heart Surgery: Yes (September,) Additional Surgical History: Left Shoulder surgery, Tubal ligation - Family History Family history: no significant - Social History Smoking Status: Never Smoker Substance Use Type: None (denies illicit drug use) - Medications Home Medications: Home Medications Medication Instructions Recorded Confirmed Last Taken Type Docusate Sodium 100 mg PO PRN PRN 11/16/17 11/16/17 Unknown History Aspirin EC [Aspirin Enteric Coated 81 mg PO QDAY #100 tablet 11/17/17 Unknown Rx TAB] Atorvastatin Calcium [Lipitor] 80 mg PO QHS #30 tablet 11/17/17 Unknown Rx Clopidogrel [Plavix] 75 mg PO DAILY #30 tablet 11/17/17 Unknown Rx Lisinopril [Zestril TAB] 5 mg PO QDAY #30 tablet 11/17/17 Unknown Rx Losartan [Cozaar] 100 mg PO QDAY #30 tablet 11/17/17 Unknown Rx Metoprolol [Lopressor TAB] 50 mg PO TID #90 tablet 11/17/17 Unknown Rx Pantoprazole [Protonix TAB] 40 mg PO QDAY #30 tablet. 11/17/17 Unknown Rx ED Review of Systems ROS: Stated complaint: HEART/FEET/HAND SWOLLEN Other details as noted in HPI Constitutional: no symptoms reported Eyes: denies: eye pain ENT: denies: throat pain Respiratory: SOB with exertion Cardiovascular: dyspnea on exertion. denies: chest pain Endocrine: no symptoms reported Gastrointestinal: denies: abdominal pain Genitourinary: denies: dysuria Musculoskeletal: denies: back pain Neurological: denies: headache Hematological/Lymphatic: other (bilateral lower extremity edema) Physical Exam - Physical Exam Vital Signs: Vital Signs 12/07/18 16:37 Temperature 98.8 F Pulse Rate 79 Respiratory 18 Rate Blood Pressure 139/92 [Right] O2 Sat by Pulse 97 Oximetry Physical Exam: GENERAL: The patient is well-developed well-nourished female lying on stretcher not appearing to be in acute distress. [] HEENT: Normocephalic. Atraumatic. Extraocular motions are intact. Patient has moist mucous membranes. NECK: Supple. Trachea midline CHEST/LUNGS: Clear to auscultation. There is no respiratory distress noted. HEART/CARDIOVASCULAR: Regular. There is no tachycardia. There is no gallop rub or murmur. ABDOMEN: Abdomen is soft, nontender. Patient has normal bowel sounds. There is no abdominal distention. SKIN: There is no rash. There is bilateral lower extremity 1-2+ pitting edema. There is no diaphoresis. NEURO: The patient is awake, alert, and oriented. The patient is cooperative. The patient has no focal neurologic deficits. The patient has normal speech MUSCULOSKELETAL: There is no evidence of acute injury. ED Course Vital Signs 12/07/18 16:37 Temperature 98.8 F Pulse Rate 79 Respiratory 18 Rate Blood Pressure 139/92 [Right] O2 Sat by Pulse 97 Oximetry - Consultations Consultation #1: 12/07/18 23:03 Cardiology paged 12/07/18 23:[address] Galindo- recommends admitting patient to hospital for further evaluation ED Medical Decision Making - Lab Data Result diagrams: 12/07/18 16:44 12/07/18 16:44 Laboratory Tests 12/07/18 12/07/18 12/07/18 16:44 16:44 19:15 WBC 4.7 RBC 3.77 Hgb 11.6 Hct 33.7 MCV 90 MCH 31 MCHC 35 H RDW 13.8 Plt Count 213 Lymph % (Auto) 32.0 [place] % (Auto) 6.7 Eos % (Auto) 4.4 H Baso % (Auto) 0.7 Lymph # 1.5 [place] # 0.3 Eos # 0.2 Baso # 0.0 Seg Neutrophils % 56.2 Seg Neutrophils # 2.6 Sodium 141 Potassium 4.0 Chloride 104.8 Carbon Dioxide 23 Anion Gap 17 BUN 14 Creatinine 1.1 Estimated GFR > 60 BUN/Creatinine Ratio 13 Glucose 123 H Calcium 9.2 Troponin T < 0.010 < 0.010 - EKG Data -: EKG Interpreted by Me EKG shows normal: sinus rhythm Rate: normal - EKG Data When compared to previous EKG there are: no significant change Interpretation: unchanged when compared t (11/16/2017) - Radiology Data Radiology results: report reviewed (chest x-ray), image reviewed (chest x-ray) interpreted by me: Chest x-ray-no focal infiltrates, no pneumothorax [facility] [address] [place] [address] XRay Report Signed Patient: SHANTELL SHIPLEY MR#: [id number] : 1965 Acct:[id number] Age/Sex: 53 / F ADM Date: 12/07/18 Loc: ED Attending Dr: Ordering Physician: ED MD RIGOBERTO Date of Service: 12/07/18 Procedure(s): XR chest 1V ap Accession Number(s): [id number] cc: ED MD RIGOBERTO Fluoro Time In Minutes: PROCEDURE: XR CHEST 1V AP TECHNIQUE: Single AP chest HISTORY: Chest Pain JUAN RISONS: Comparison is dated November 15, 2018 FINDINGS: Cardiac and mediastinal contours are unremarkable. No focal pulmonary infiltrate identified. No pleural fluid collection seen. Pulmonary vasculature is unremarkable. Sternotomy wires are noted. IMPRESSION: No acute abnormality identified in the chest. This document is electronically signed by Polo García MD., Dec 07 2018 07:07:32 PM ET Transcribed By: BRADLEY Dictated By: QUIRINO GARCÍA MD Electronically Authenticated By: QUIRINO GARCÍA MD Signed Date/Time: 12/07/181908 DD/ 57 TD/TT: 12/07/181757 - Differential Diagnosis CHF exacerbation Critical care attestation.: If time is entered above; I have spent that time in minutes in the direct care o f this critically ill patient, excluding procedure time. ED Disposition Clinical Impression: CHF exacerbation, Peripheral edema, Dyspnea on exertion Disposition: -09 OP ADMIT IP TO THIS HOSP Is pt being admited?: Yes Does the pt Need Aspirin: Yes Condition: Fair Referrals: BERNADETTE MEDEIROS MD [Primary Care Provider] - 3-5 Days Time of Disposition: 23:21 (hospitalist paged (Dr Baca))
[2018-12-08] MEDS ORDERED: ZOFRAN IV PRN (00:52)
[2018-12-08] MEDS ORDERED: TYLENOL PO PRN (00:53)
[2018-12-08] MEDS ORDERED: NON-FORMULARY (Docusate Sodium 100 MG) PO PRN (00:54)
[2018-12-08] MEDS ORDERED: COLACE PO PRN (01:15)
[2018-12-08] MEDS ORDERED: NITRO-BID 2% TP SCH (06:00)
[2018-12-08 06:32] LABS: Creatine Kinase MB 1.9 ng/mL (0.0-4.0)
--- NOTE | 2018-12-08 07:56 | History and Physical Report ---
CHIEF COMPLAINT: Swelling in the lower extremities. OTHER COMPLAINT: Include shortness of breath. HISTORY OF PRESENTING ILLNESS: The patient is a 53-year-old female who presented to the Emergency Room with lower extremity edema and also some shortness of breath on exertion. The patient said the symptoms have been going on for about 5 days and denied history of chest pain and said that her shortness of breath occurs on exertion. The patient also complained of swelling in her hands and say that she got a bellows filler who told her to elevate her feet but did not have much relieve. The patient stated that her swelling of the feet persisted and started getting worse and this made her come to the Emergency Room. There is no history of chest pain, no history of fever or chills and no history of nausea or vomiting. PAST MEDICAL HISTORY: Pertinent for hypertension, coronary artery disease, status post myocardial infarction, sickle cell trait. PAST SURGICAL HISTORY: Pertinent for open heart surgery in 09/2017, left shoulder surgery and tubal ligation. FAMILY HISTORY: Family history is noncontributory. SOCIAL HISTORY: The patient does not smoke, does not drink alcohol, and does not use illicit drug. MEDICATIONS: The patient is on docusate sodium 100 mg by mouth as needed. Also the patient is on aspirin 81 mg by mouth daily and Lipitor 80 mg by mouth at bedtime. The patient is also on Plavix 75 mg by mouth daily and lisinopril 5 mg by mouth daily as well as losartan 100 mg by mouth daily. The patient is on metoprolol 50 mg by mouth 3 times daily and pantoprazole 40 mg by mouth daily. ALLERGIES: There are no known drug allergies. REVIEW OF SYSTEMS: CONSTITUTIONAL: There is no fever, no chills, no diaphoresis. HEENT: There is no headache or sore throat. CARDIOVASCULAR SYSTEM: There is no chest pain or orthopnea. RESPIRATORY SYSTEM: Shortness of breath is present. There is no cough. GASTROINTESTINAL SYSTEM: There is no nausea, no vomiting, no abdominal pain, diarrhea or constipation. NEUROLOGICAL SYSTEM: There is no numbness, no dizziness, no altered mental status. MUSCULOSKELETAL SYSTEM: There is swelling in both lower extremities and no joint pain. DERMATOLOGICAL SYSTEM: There is no skin rash or itching. GENITOURINARY SYSTEM: There is no dysuria, hematuria, or flank pain. Rest of system review is normal. PHYSICAL EXAMINATION: GENERAL: At the time of exam, the patient was found to be alert, oriented x 3 and not in acute distress. VITAL SIGNS: At the initial time of presentation show temperature of 98.8 degrees Fahrenheit, pulse of 79, respiration 18, blood pressure 139/92, O2 sat of 97% on room air. HEENT: Show pupils to be equal, round, reactive to light and accommodating. Extraocular muscles are intact. NECK: Neck is supple with no JVD or carotid bruit. CARDIOVASCULAR SYSTEM: Show normal first and second heart sounds with no gallops or murmur. The patient has 1+ pitting edema in the ankles. RESPIRATORY SYSTEM: Show good air entry on both sides of the lungs with mild bibasilar rales. GASTROINTESTINAL SYSTEM: Shows abdomen to be full, soft nontender with no organomegaly or rigidity. NEUROLOGIC: Neuro exam shows no focal deficit. MUSCULOSKELETAL SYSTEM: Shows swelling in the ankles, but no joint tenderness. DERMATOLOGICAL SYSTEM: Show no skin rash. GENITOURINARY SYSTEM: Show no costovertebral angle tenderness. PERTINENT LABORATORY DATA AND IMAGING STUDIES: The patient had chest x-ray done that was unremarkable. The patient's lab results shows CBC with normal white count, normal hemoglobin and normal hematocrit with CBC differential showing slight increase in eosinophil count of 4.4%. The patient's chemistry was unremarkable. Troponin level came back normal. Brain natriuretic peptide level was normal. DIAGNOSIS: Congestive heart failure exacerbation. PLAN OF CARE: 1. The patient will be admitted to Telemetry. 2. The patient will have serial cardiac enzymes involving troponin, total CK and CK-MB check every 6 hours x 2 more levels. 3. The patient will have 2D echo done this morning. 4. The patient will be on IV Lasix 40 mg daily and will be on aspirin 81 mg daily. 5. The patient will be on Tylenol 650 mg by mouth every 4 hour for fever and headache and will be on IV Zofran 4 mg every 8 hours for nausea and vomiting. 6. The patient will be on her home medication as shown in the medication reconciliation section and this include losartan 100 mg by mouth daily, Lopressor 50 mg by mouth 3 times daily and Lipitor 80 mg by mouth daily as well as Plavix 75 mg by mouth daily. 7. The patient's diet will be 2 g sodium diet. 8. The patient will be on nitro paste half inch to the anterior chest wall b.i.d. [facility]# [id number] OCN/CAM ROTH
[2018-12-08] MEDS ORDERED: LASIX PO ONE (08:00)
[2018-12-08] MEDS ORDERED: LOPRESSOR PO SCH ×2 (08:00→22:00)
[2018-12-08] MEDS ORDERED: LASIX ONE (08:18)
[2018-12-08] MEDS ORDERED: PLAVIX ONE (08:18)
[2018-12-08] MEDS ORDERED: PROTONIX PO ONE (08:18)
[2018-12-08] MEDS ORDERED: COZAAR ONE ×2 (08:19→08:20)
[2018-12-08] MEDS ORDERED: LOPRESSOR ONE (08:19)
[2018-12-08] MEDS ORDERED: HEPARIN SUB-Q SCH (10:00)
[2018-12-08] MEDS ORDERED: NON-FORMULARY (Losartan [Cozaar] 100 MG) PO SCH (10:00)
[2018-12-08] MEDS ORDERED: COZAAR PO SCH (10:00)
[2018-12-08] MEDS ORDERED: LASIX IV SCH ×2 (10:00→22:00)
[2018-12-08] MEDS: PROTONIX PO SCH (10:15)
[2018-12-08] MEDS: PLAVIX PO SCH (10:25)
[2018-12-08] MEDS: HALFPRIN EC PO SCH (11:18)
--- NOTE | 2018-12-08 11:47 | Consultation ---
History of Present Illness Consult date: 12/08/18 Requesting physician: ROSE OCONNOR Consult reason: congestive heart failure History of present illness: The pt is a 53YO female with a past medical history of CAD s/p CABG in 09/2017, HTN, HLP. She is followed in our office by Dr. Mitchell. She presented with c/o progressively worsening SOB, DALE, hand swelling and BLE swelling for the past 1 week. She denies any chest pain, palpitations, n/v, diaphoresis, dizziness or s yncope. Pt denies any prior history of HF. Pt does admit to 50lb weight gain since CABG in 09/2017 despite exercising regularly and compliance with cardiac diet. Echo done 09/2017 showed EF 60%, mild LVH, grade 1 diastolic dysfunction. Past History Past Medical History: CAD, hypertension, hyperlipidemia Past Surgical History: CABG Social history: denies: smoking, alcohol abuse, prescription drug abuse Medications and Allergies Allergies Allergy/AdvReac Type Severity Reaction Status Date / Time No Known Allergies Allergy Verified 07/18/17 07:36 Home Medications Medication Instructions Recorded Confirmed Last Taken Type Aspirin EC [Aspirin Enteric Coated 81 mg PO QDAY #100 tablet 11/17/17 12/08/18 12/07/18 Rx TAB] Atorvastatin Calcium [Lipitor] 80 mg PO QHS #30 tablet 11/17/17 12/08/18 12/07/18 Rx Clopidogrel [Plavix] 75 mg PO DAILY #30 tablet 11/17/17 12/08/18 12/07/18 Rx Losartan [Cozaar] 100 mg PO QDAY #30 tablet 11/17/17 12/08/18 12/07/18 Rx ISOSORBIDE MONOnitrate [Imdur ER] 120 mg PO QAM 12/08/18 12/08/18 Unknown History Metoprolol [Lopressor TAB] 50 mg PO BID 12/08/18 12/08/18 12/07/18 History hydroCHLOROthiazide [HCTZ] 25 mg PO QDAY 12/08/18 12/08/18 Unknown History Active Meds: Active Medications Acetaminophen (Tylenol) 650 mg PO Q4H PRN PRN Reason: Headache Aspirin (Halfprin Ec) 81 mg PO QDAY [facility] Last Admin: 12/08/18 11:18 Dose: Not Given Documented by: Atorvastatin Calcium (Lipitor) 80 mg PO QHS [facility] Clopidogrel Bisulfate (Plavix) 75 mg PO DAILY [facility] Last Admin: 12/08/18 10:25 Dose: 75 mg Documented by: Docusate Sodium (Colace) 100 mg PO DAILY PRN PRN Reason: Constipation Furosemide (Lasix) 40 mg IV QDAY [facility] Last Admin: 12/08/18 10:30 Dose: 40 mg Documented by: Losartan Potassium (Cozaar) 100 mg PO QDAY [facility] Last Admin: 12/08/18 10:25 Dose: 100 mg Documented by: Metoprolol Tartrate (Lopressor) 50 mg PO TID [facility] Last Admin: 12/08/18 08:26 Dose: 50 mg Documented by: Nitroglycerin (Nitro-Bid 2%) 0.5 inch TP BIDNTG [facility]; Protocol Last Admin: 12/08/18 06:16 Dose: Not Given Documented by: Ondansetron HCl (Zofran) 4 mg IV Q8H PRN PRN Reason: Nausea And Vomiting Pantoprazole Sodium (Protonix) 40 mg PO QDAY [facility] Last Admin: 12/08/18 10:15 Dose: 40 mg Documented by: Review of Systems Constitutional: weight gain (50lb since CABG in 09/2017), no fever, no chills, no sweats Ears, nose, mouth and throat: no ear pain, no nose pain, no sinus pressure, no sinus pain Cardiovascular: edema, shortness of breath, dyspnea on exertion, high blood pressure, leg edema, no chest pain, no orthopnea, no palpitations, no rapid/irregular heart beat, no syncope, no lightheadedness Respiratory: shortness of breath, dyspnea on exertion, no cough, no congestion, no wheezing, no pain on inspiration Gastrointestinal: no abdominal pain, no nausea, no vomiting, no diarrhea, no constipation, no change in bowel habits Genitourinary Female: no pelvic pain, no flank pain, no dysuria, no urinary frequency, no urgency Musculoskeletal: no neck stiffness, no neck pain, no shooting arm pain, no arm numbness/tingling, no low back pain, no shooting leg pain Integumentary: no rash, no pruritis, no redness, no sores, no wounds Neurological: no head injury, no paralysis, no weakness, no parathesias, no numbness, no tingling, no seizures, no syncope Psychiatric: no anxiety Endocrine: no cold intolerance, no heat intolerance Hematologic/Lymphatic: no easy bruising, no easy bleeding Allergic/Immunologic: no urticaria, no wheezing Physical Examination Vital Signs Temp Pulse Resp BP Pulse Ox 98.8 F 79 18 139/92 97 12/07/18 16:37 12/07/18 16:37 12/07/18 16:37 12/07/18 16:37 12/07/18 16:37 General appearance: no acute distress HEENT: Positive: PERRL, Normocephaly, Mucus Membranes Moist Neck: Positive: neck supple, trachea midline Cardiac: Positive: Reg Rate and Rhythm, S1/S2 Lungs: Positive: clear to auscultation Neuro: Positive: Grossly Intact Abdomen: Positive: Soft. Negative: Tender Skin: Negative: Rash, Wound Musculoskeletal: No Pain Extremities: Present: +2 Edema (BLE) Results 12/07/18 16:44 12/07/18 16:44 Cardiac Enzymes 12/08/18 Range/Units 05:54 CK-MB (CK-2) 1.9 (0.0-4.0) ng/mL CBC 12/07/18 Range/Units 16:44 WBC 4.7 (4.5-11.0) K/mm3 RBC 3.77 (3.65-5.03) M/mm3 Hgb 11.6 (10.1-14.3) gm/dl Hct 33.7 (30.3-42.9) % Plt Count 213 (140-440) K/mm3 Lymph # 1.5 (1.2-5.4) K/mm3 [place] # 0.3 (0.0-0.8) K/mm3 Eos # 0.2 (0.0-0.4) K/mm3 Baso # 0.0 (0.0-0.1) K/mm3 Comprehensive Metabolic Panel 12/07/18 Range/Units 16:44 Sodium 141 (137-145) mmol/L Potassium 4.0 (3.6-5.0) mmol/L Chloride 104.8 (98-107) mmol/L Carbon Dioxide 23 (22-30) mmol/L BUN 14 (7-17) mg/dL Creatinine 1.1 (0.7-1.2) mg/dL Glucose 123 H (65-100) mg/dL Calcium 9.2 (8.4-10.2) mg/dL - Imaging and Cardiology Echo: report reviewed ( 09/2017 showed EF 60%, mild LVH, grade 1 diastolic dysfunction. ) Cardiac cath: report reviewed (09/2017 : tx for CABG) EKG: report reviewed, image reviewed EKG interpretations - Telemetry EKG Rhythm: Sinus Rhythm - EKG Sinus rhythms and dysrhythmias: sinus rhythm Assessment and Plan Cont present cardiac management. F/u echo. The patient has been seen in conjunction with Dr. Lewis who agrees with the assessment and plan of care. - Patient Problems (1) Acute heart failure with preserved ejection fraction Current Visit: Yes Status: Acute (2) CAD (coronary artery disease) Current Visit: Yes Status: Chronic (3) History of coronary artery bypass graft Current Visit: Yes Status: Chronic (4) HTN (hypertension) Current Visit: Yes Status: Chronic (5) Hyperlipidemia Current Visit: Yes Status: Chronic
[2018-12-08 13:40] LABS: Creatine Kinase MB 1.7 ng/mL (0.0-4.0)
--- NOTE | 2018-12-08 15:53 | Event Note ---
Date: 12/08/18 Patient seen and examined, continue current plan of care. cardiology input noted. monitor and replace electrolytes as needed.
[2018-12-08] MEDS ORDERED: NITROSTAT SL PRN (16:27)
[2018-12-08] MEDS: LASIX PO SCH (18:20)
[2018-12-08] MEDS ORDERED: NON-FORMULARY (Atorvastatin Calcium [Lipitor] 80 MG) PO SCH (22:00)
[2018-12-09] MEDS: LASIX PO SCH ×2 (06:12→18:36)
[2018-12-09 06:40] LABS: BUN/Creatinine Ratio 17; Blood Urea Nitrogen 15 mg/dL (7-17); Calcium 9.1 mg/dL (8.4-10.2); Hemolysis Index 11
--- NOTE | 2018-12-09 10:34 | Progress Note ---
Assessment and Plan Cont present cardiac management. F/u echo. The patient has been seen in conjunction with Dr. Lewis who agrees with the assessment and plan of care. - Patient Problems (1) Acute heart failure with preserved ejection fraction Current Visit: Yes Status: Acute (2) CAD (coronary artery disease) Current Visit: Yes Status: Chronic (3) History of coronary artery bypass graft Current Visit: Yes Status: Chronic (4) HTN (hypertension) Current Visit: Yes Status: Chronic (5) Hyperlipidemia Current Visit: Yes Status: Chronic Subjective Date of service: 12/09/18 Principal diagnosis: HF Interval history: pt seen in echo lab, states she is feeling better today. Objective Last Vital Signs Temp 97.5 F L 12/09/18 08:19 Pulse 58 L 12/09/18 08:00 Resp 18 12/09/18 08:19 BP 103/67 12/09/18 08:19 Pulse Ox 95 12/09/18 08:00 - Physical Examination General: No Apparent Distress HEENT: Positive: PERRL, Normocephaly, Mucus Membranes Moist Neck: Positive: neck supple, trachea midline Cardiac: Positive: Reg Rate and Rhythm, S1/S2 Lungs: Positive: Decreased Breath Sounds Neuro: Positive: Grossly Intact Abdomen: Positive: Soft. Negative: Tender Skin: Negative: Rash, Wound Musculoskeletal: No Pain Extremities: Present: +2 Edema (BLE) - Labs and Meds Cardiac Enzymes 12/08/18 Range/Units 12:08 CK-MB (CK-2) 1.7 (0.0-4.0) ng/mL Comprehensive Metabolic Panel 12/09/18 Range/Units 05:29 Sodium 143 (137-145) mmol/L Potassium 3.8 (3.6-5.0) mmol/L Chloride 102.0 (98-107) mmol/L Carbon Dioxide 26 (22-30) mmol/L BUN 15 (7-17) mg/dL Creatinine 0.9 (0.7-1.2) mg/dL Glucose 110 H (65-100) mg/dL Calcium 9.1 (8.4-10.2) mg/dL - Imaging and Cardiology EKG: report reviewed, image reviewed Echo: report reviewed ( 09/2017 showed EF 60%, mild LVH, grade 1 diastolic dysfunction. ) Cardiac cath: report reviewed (09/2017 : tx for CABG) - EKG Sinus rhythms and dysrhythmias: sinus rhythm
[2018-12-09] MEDS: PLAVIX PO SCH (11:46)
[2018-12-09] MEDS: PROTONIX PO SCH (11:46)
[2018-12-09] MEDS: HALFPRIN EC PO SCH (11:46)
[2018-12-09] MEDS ORDERED: COZAAR PO SCH (14:39)
[2018-12-09] MEDS ORDERED: LOPRESSOR PO SCH (14:39)
[2018-12-09 16:32] VITALS: BP 103/74
--- NOTE | 2018-12-09 19:03 | Discharge Summary ---
Providers - Providers Date of Admission: 12/08/18 00:47 Date of discharge: 12/09/18 Attending physician: DALLIN SOLORZANO 12/08/18 06:00 Consult to Physician [CONS] Routine Comment: Nicole aware of patient Consulting Provider: JACK ROSE Physician Instructions: Reason For Exam: CHF EXACERBATION Primary care physician: BERNADETTE MEDEIROS Hospitalization Condition: Fair Hospital course: (1) Acute heart failure with preserved ejection fraction Current Visit: Yes Status: Acute EF 55 to 60 percent d/c on lasix (2) CAD (coronary artery disease) Current Visit: Yes Status: Chronic (3) History of coronary artery bypass graft Current Visit: Yes Status: Chronic (4) HTN (hypertension) Current Visit: Yes Status: Chronic (5) Hyperlipidemia Current Visit: Yes Status: Chronic Disposition: - TO HOME OR SELFCARE Core Measure Documentation - Palliative Care Palliative Care/ Comfort Measures: Not Applicable - Core Measures Any of the following diagnoses?: none Exam - Constitutional Vitals: Temp Pulse Resp BP Pulse Ox 97.8 F 73 18 103/74 98 12/09/18 15:00 12/09/18 15:00 12/09/18 15:00 12/09/18 15:00 12/09/18 15:00 General appearance: Present: no acute distress, well-nourished - EENT Eyes: Present: PERRL ENT: hearing intact, clear oral mucosa - Neck Neck: Present: supple, normal ROM - Respiratory Respiratory effort: normal Respiratory: bilateral: CTA - Cardiovascular Heart rate: 78 Rhythm: regular Heart Sounds: Present: S1 & S2. Absent: rub, click - Extremities Extremities: no ischemia, pulses intact, pulses symmetrical, No edema Peripheral Pulses: within normal limits - Abdominal General gastrointestinal: Present: soft, non-tender, non-distended, normal bowel sounds Female genitourinary: Present: normal - Rectal Rectal Exam: deferred - Integumentary Integumentary: Present: clear, warm, dry - Musculoskeletal Musculoskeletal: gait normal, strength equal bilaterally - Psychiatric Psychiatric: appropriate mood/affect, intact judgment & insight - Neurologic Neurologic: CNII-XII intact, moves all extremities - Allied Health Allied health notes reviewed: nursing, case management Plan Activity: no restrictions Diet: low fat, low cholesterol, low salt Follow up with: BERNADETTE MEDEIROS MD [Primary Care Provider] - 3-5 Days SAHIL FOSTER MD [Staff Physician] - 7 Days
== END 2018-12-09 19:30 | disposition home or self-care (01) | DRG 293 ==
LOC: ED 16:23 → 4A 12-08 00:47
PROVIDERS: ADMIT Internal Medicine; ATTEND Internal Medicine
DX: I11.0 Hypertensive heart disease with heart failure (principal); I50.9 Heart failure, unspecified; E78.5 Hyperlipidemia, unspecified; I25.10 Atherosclerotic heart disease of native coronary artery without angina pectoris; Z95.1 Presence of aortocoronary bypass graft; Z79.82 Long term (current) use of aspirin; Z79.899 Other long term (current) drug therapy; I25.2 Old myocardial infarction; Z98.51 Tubal ligation status
CPT/HCPCS: 36415; 71045; 80048; 82550; 82553; 83880; 84484; 85025; 93005; 93010; 93306; 96374; G0378; A9270-GY; J1940

== ENCOUNTER 2019-08-28 06:00 | Emergency (ER) | payer OTHER ==
[2019-08-28 06:13] VITALS: BP 109/76
[2019-08-28] MEDS ORDERED: KETOROLAC 60 MG/2 ML INJ IM ONE (07:51)
[2019-08-28] MEDS ORDERED: traMADol 50 MG TAB PO ONE (07:52)
--- NOTE | 2019-08-28 08:57 | Emergency Department Report ---
ED Back Pain/Injury HPI - General Chief Complaint: Back Pain/Injury Stated Complaint: BACK PAIN Time Seen by Provider: 08/28/19 07:39 Source: patient Limitations: No Limitations - History of Present Illness Initial Comments: This 53-year-old female complaining of lower back pain 1 month. Yesterday she felt that the pain intensified and she was having difficulty moving around. Patient denies any falls slips or trauma. She also denies any bowel or bladder incontinence. She denies any urinary symptoms of frequency urgency or retention of urine or burning. She denies chest pain shortness of breath no abdominal pain. She's using topical agents without relief. MD Complaint: back pain -: month(s) (1) Similar Symptoms Previously: No Quality: sharp, aching Improves With: none Worsens With: none Associated Symptoms: denies other symptoms - Related Data Previous Rx's Medication Instructions Recorded Last Taken Type Aspirin EC [Halfprin EC] 81 mg PO QDAY #100 tablet 12/09/18 Unknown Rx AtorvaSTATin [Lipitor] 20 mg PO QHS #30 tablet 12/09/18 Unknown Rx Clopidogrel [Plavix] 75 mg PO DAILY #30 tablet 12/09/18 Unknown Rx Furosemide [Lasix TAB] 40 mg PO QDAY #30 tablet 12/09/18 Unknown Rx ISOSORBIDE MONOnitrate [Imdur ER] 120 mg PO QAM #30 tablet 12/09/18 Unknown Rx Losartan [Cozaar] 50 mg PO QDAY #30 tablet 12/09/18 Unknown Rx Metoprolol [Lopressor TAB] 50 mg PO BID #60 tablet 12/09/18 Unknown Rx Pantoprazole [Protonix TAB] 40 mg PO QDAY #30 tablet. 12/09/18 Unknown Rx Potassium Chloride [K-Dur] 20 meq PO QDAY #30 tablet 12/09/18 Unknown Rx Cyclobenzaprine [Flexeril] 10 mg PO TID PRN #15 tablet 08/28/19 Unknown Rx Ibuprofen [Motrin] 600 mg PO Q8H PRN #21 tablet 08/28/19 Unknown Rx traMADoL [Ultram 50 MG tab] 50 mg PO Q6HR PRN #15 tablet 08/28/19 Unknown Rx Allergies Allergy/AdvReac Type Severity Reaction Status Date / Time No Known Allergies Allergy Verified 07/18/17 07:36 ED Review of Systems ROS: Stated complaint: BACK PAIN Other details as noted in HPI Comment: All other systems reviewed and negative Cardiovascular: denies: chest pain Endocrine: denies: excessive sweating Gastrointestinal: denies: abdominal pain, nausea, vomiting, diarrhea, constipation Genitourinary: denies: urgency, dysuria Skin: denies: rash, lesions Neurological: denies: headache Psychiatric: denies: anxiety ED Past Medical Hx - Past Medical History Previous Medical History?: Yes Hx Hypertension: Yes Hx Heart Attack/AMI: Yes (CABG, September 2017, [place] June 2017) Hx Congestive Heart Failure: No Hx Diabetes: No Hx Sickle Cell Disease: Yes (trait) Hx Seizures: No Hx Asthma: No Hx COPD: No - Surgical History Past Surgical History?: Yes Hx Open Heart Surgery: Yes (September,) Additional Surgical History: Left Shoulder surgery, Tubal ligation, CABG - Social History Smoking Status: Never Smoker Substance Use Type: None - Medications Home Medications: Home Medications Medication Instructions Recorded Confirmed Last Taken Type Aspirin EC [Halfprin EC] 81 mg PO QDAY #100 tablet 12/09/18 Unknown Rx AtorvaSTATin [Lipitor] 20 mg PO QHS #30 tablet 12/09/18 Unknown Rx Clopidogrel [Plavix] 75 mg PO DAILY #30 tablet 12/09/18 Unknown Rx Furosemide [Lasix TAB] 40 mg PO QDAY #30 tablet 12/09/18 Unknown Rx ISOSORBIDE MONOnitrate [Imdur ER] 120 mg PO QAM #30 tablet 12/09/18 Unknown Rx Losartan [Cozaar] 50 mg PO QDAY #30 tablet 12/09/18 Unknown Rx Metoprolol [Lopressor TAB] 50 mg PO BID #60 tablet 12/09/18 Unknown Rx Pantoprazole [Protonix TAB] 40 mg PO QDAY #30 tablet.dr 12/09/18 Unknown Rx Potassium Chloride [K-Dur] 20 meq PO QDAY #30 tablet 12/09/18 Unknown Rx Cyclobenzaprine [Flexeril] 10 mg PO TID PRN #15 tablet 08/28/19 Unknown Rx Ibuprofen [Motrin] 600 mg PO Q8H PRN #21 tablet 08/28/19 Unknown Rx traMADoL [Ultram 50 MG tab] 50 mg PO Q6HR PRN #15 tablet 08/28/19 Unknown Rx ED Physical Exam - General Limitations: No Limitations General appearance: alert, in no apparent distress - Head Head exam: Absent: atraumatic - Eye Eye exam: Present: normal appearance. Absent: conjunctival injection - ENT ENT exam: Present: normal exam - Neck Neck exam: Present: normal inspection - Respiratory Respiratory exam: Present: normal lung sounds bilaterally. Absent: respiratory distress, wheezes, rales, rhonchi - Cardiovascular Cardiovascular Exam: Present: regular rate, normal heart sounds - GI/Abdominal GI/Abdominal exam: Present: soft, normal bowel sounds. Absent: distended, tenderness, guarding, rebound - Extremities Exam Extremities exam: Present: normal inspection, full ROM, normal capillary refill. Absent: pedal edema - Back Exam Back exam: Present: normal inspection, paraspinal tenderness - Neurological Exam Neurological exam: Present: alert, oriented X3 - Psychiatric Psychiatric exam: Present: normal affect - Skin Skin exam: Present: warm, dry, intact. Absent: rash ED Course Vital Signs 08/28/19 08/28/19 08/28/19 06:05 08:18 08:19 Temperature 98.2 F Pulse Rate 71 Respiratory 18 18 18 Rate Blood Pressure 109/76 O2 Sat by Pulse 96 Oximetry 08/28/19 08:43 Temperature Pulse Rate Respiratory 18 Rate Blood Pressure O2 Sat by Pulse Oximetry - Reevaluation(s) Reevaluation #1: 08/28/19 08:45 After receiving Toradol and Ultram pt reports great improvement I observed her walking around room with ease and doing leg lifts without limitations ED Medical Decision Making - Medical Decision Making 53-year-old female with low back pain 1 month no history of trauma or injuries of any kind. After receiving Toradol and Ultram in the emergency room. Patient became pain-free and was able to move around freely. She is discharged with Flexeril and Motrin and Ultram for severe pain. Patient is to follow-up with her primary care doctor. Instructed to do gentle stretches possibly even yoga. I also discussed weight loss management with the patient. Critical Care Time: No Critical care attestation.: If time is entered above; I have spent that time in minutes in the direct care of this critically ill patient, excluding procedure time. ED Disposition Clinical Impression: Low back pain Qualifiers: Chronicity: acute Back pain laterality: bilateral Sciatica presence: with sciatica Sciatica laterality: sciatica of left side Qualified Code(s): M54.42 - Lumbago with sciatica, left side Disposition: DC-01 TO HOME OR SELFCARE Is pt being admited?: No Does the pt Need Aspirin: No Condition: Stable Instructions: Acute Low Back Pain (ED), Low Back Strain (ED) Additional Instructions: Apply heating pad at least twice a day or more able. Follow-up with her primary care doctor in 3-5 days. You have prescription for tramadol which should only be taken for severe pain. Mild pain you can take ibuprofen 600 mg. Also given muscle relaxant Flexeril. I suggest that you do not take the Flexeril and tramadol at the same time. It is okay to take the ibuprofen and Flexeril around the same time but separate tramadol and Flexeril at least 4 hours. I suggested gentle stretching such as yoga. Please also consider weight loss to assist with low back pain Prescriptions: Cyclobenzaprine [Flexeril] 10 mg PO TID PRN #15 tablet PRN Reason: Muscle Spasm Ibuprofen [Motrin] 600 mg PO Q8H PRN #21 tablet PRN Reason: Pain traMADoL [Ultram 50 MG tab] 50 mg PO Q6HR PRN #15 tablet PRN Reason: Pain Referrals: ARIC HAYES MD [Primary Care Provider] - 3-5 Days Time of Disposition: 08:59
== END 2019-08-28 09:10 | disposition home or self-care (01) ==
LOC: ED 06:00
DX: M54.5 Low back pain (principal); I10 Essential (primary) hypertension; I25.2 Old myocardial infarction; Z95.1 Presence of aortocoronary bypass graft; Z79.899 Other long term (current) drug therapy; Z98.890 Other specified postprocedural states; Z98.51 Tubal ligation status
CPT/HCPCS: 96372; 99282; J1885